=== PATIENT | male | born 1955 | race Caucasian/White ===

== ENCOUNTER 2020-09-25 15:26 | Emergency (ER) | payer MEDICARE, OTHER, SELFPAY ==
[2020-09-25 16:10] VITALS: BP 117/66; PULSE 78; RESP 18; TEMP 37.1; O2SAT 98
--- NOTE | 2020-09-25 17:29 | ED.EYEPROB ---
HPI - Eye Problem General Chief complaint: Eye Problems Stated complaint: eye complaint, vision changes Time Seen by Provider: 09/25/20 17:29 Source: patient Mode of arrival: ambulatory Limitations: no limitations History of Present Illness HPI Narrative: Patient is a 65-year-old male who presents with complaints of blood in right eye. He denies pain, reports occasional floater, denies blurred vision or other complaints. Patient reports awoke like that on Friday, denies injury or trauma to eye. Patient's shows picture of eye on Friday and greatly improved today. Patient has a history of diabetes and reports patient has a history of low platelets and is asking for check of general labs. MD chief complaint: eye redness Related Data Home Medications Medication Instructions Recorded Confirmed albuterol sulfate [ProAir HFA] 1 inh INHALATION QID PRN 07/06/19 07/06/19 calcipotriene 1 applic TOPICAL ONCE 07/06/19 07/06/19 carbidopa-levodopa [Sinemet] 1 tablet PO BID 07/06/19 07/06/19 cetirizine [Zyrtec] 10 mg PO DAILY 07/06/19 07/06/19 duloxetine [Cymbalta] 60 mg PO DAILY 07/06/19 07/06/19 empagliflozin [Jardiance] 25 mg PO DAILY 07/06/19 07/06/19 escitalopram oxalate 10 mg PO DAILY 07/06/19 07/06/19 exenatide microspheres [Bydureon] 2 mg SUBCUT WEEKLY 07/06/19 07/06/19 gabapentin enacarbil [Horizant] 600 mg PO BID 07/06/19 07/06/19 lactobacillus combination no.4 3,000 mmu cells PO DAILY 07/06/19 07/06/19 [Probiotic] metformin 1,000 mg PO BID 07/06/19 07/06/19 rosuvastatin [Crestor] 5 mg PO DAILY 07/06/19 07/06/19 tamsulosin [Flomax] 0.4 mg PO DAILY 07/06/19 07/06/19 tramadol 200 mg PO DAILY 07/06/19 07/06/19 Allergies Allergy/AdvReac Type Severity Reaction Status Date / Time ketorolac Allergy Intermediate Other Verified 09/25/20 16:14 Review of Systems Review of Systems: Narrative: CONSTITUTIONAL: Denies fever, chills, or sweats. EYES: Reports redness to the right eye, and occasional floaters. ENT: Denies rhinorrhea, congestion, sore throat, or otalgia. CARDIOVASCULAR: Denies chest pain, palpitations, or edema. RESPIRATORY: Denies cough or dyspnea. GASTROINTESTINAL: Denies abdominal pain, nausea, vomiting, or diarrhea. GENITOURINARY: Denies dysuria or hematuria. SKIN: Denies rash or itching. MUSCULOSKELETAL: Denies back pain, joint pain, or myalgia. NEUROLOGIC: Denies headache, numbness, dizziness, or weakness. PSYCHIATRIC: Denies anxiety or depression. FORMERLY [facility] Past Medical History Medical History Asthma Back pain Cirrhosis of liver Crohn's disease Diabetes Hypercholesteremia Melena Parkinsons disease Surgical History Surgical History No history of previous surgery Family History Family History (Updated 09/25/20 @ 18:28 by GIOVANNA Rodrigez) Other No significant family history Social History Social History (Updated 07/06/19 @ 14:08 by GIOVANNA Lebron) Social History: Alcohol use weekly service Gender identity (if verbalized by the patient): Male Comments At the time of signature, I have reviewed and agree with nursing past medical, surgical, social, and family history unless otherwise noted. Please see nursing chart for further information. There is no relevant family history pertinent to the presenting complaint. Exam Narrative: Exam Narrative: GENERAL: Well-appearing, well-nourished, and in no acute distress. HEAD: Normocephalic, atraumatic. EYES: Small subconjunctival hematoma to right eye at 6 o'clock position, conjunctiva are normal. ENT: Mucous membranes pink and moist. CHEST: No respiratory distress. HEART: Regular rate and rhythm. EXTREMITIES: Normal range of motion. SKIN: Warm, dry, no rash. NEURO: No focal deficits. Alert and oriented x3. Gait steady. PSYCH: Normal affect. No signs of depression or anxiety. Course Vital Signs Vit
[2020-09-25 18:33] LABS: Basophils Percent Auto 0.3 % (0.2-1.2); Eosinophils Absolute Auto 0.2 K/mm3 (0-0.3); Hematocrit 41.9 % (42.0-52.0); Hemoglobin 14.2 g/dL (14.0-18.0); Immature Platelet Fraction Pct 3.6 % (0.9-11.2); Lymphocytes Absolute Auto 0.75 K/mm3 (0.9-3.2); Lymphocytes Percent Auto 25.1 % (18.3-44.2); Mean Corpuscular HGB Conc 33.9 g/dl (32-36); Mean Corpuscular Hemoglobin 31.7 pg (26-34); Mean Corpuscular Volume 93.5 fl (80-100); Mean Platelet Volume 10.5 fl (7.4-10.4); Monocytes Absolute Auto 0.3 K/mm3 (0.1-0.6); Neutrophils Absolute Auto 1.7 K/mm3 (1.3-6.7); Neutrophils Percent Auto 57.6 % (45.5-73.1); Platelet Count Result 63 k/mm3 (150-375); Red Blood Count 4.48 M/mm3 (4.6-6.20); Red Cell Distribution Width 14.2 % (11.5-14.5)
[2020-09-25 18:43] LABS: Alanine Aminotransferase 14 U/L (4-50); Albumin Level 3.5 g/dL (3.5-5.1); Alkaline Phosphatase 185 U/L (38-126); Anion Gap 2 mmol/L (8-16); Aspartate Amino Transferase 89 U/L (17-59); Bilirubin,Total 1.3 mg/dL (0.2-1.3); Blood Urea Nitrogen 7 mg/dL (9-20); Calcium 8.7 mg/dL (8.4-10.2); Carbon Dioxide 31 mmol/L (22-30); Chloride 107 mmol/L (98-107); Estimated CRCL calculation 150 ml/min; Estimated Glomerular Filt Rate > 60; Glucose 118 mg/dL (75-110); Potassium 4.1 mmol/L (3.4-5.0); Sodium 140 mmol/L (137-145)
[2020-09-25 19:02] VITALS: BP 134/78; PULSE 78; RESP 16; O2SAT 100
== END 2020-09-25 19:03 | disposition home or self-care (01) ==
PROVIDERS: Emergency Provider Nurse Practitioner
DX: H11.31 Conjunctival hemorrhage, right eye (principal); E11.9 Type 2 diabetes mellitus without complications; J45.909 Unspecified asthma, uncomplicated; K74.60 Unspecified cirrhosis of liver; K50.90 Crohn's disease, unspecified, without complications; E78.00 Pure hypercholesterolemia, unspecified; G20 Parkinson's disease; Z79.84 Long term (current) use of oral hypoglycemic drugs
CPT/HCPCS: 36415; 80053; 85025; 85055; 99283; A9270

== ENCOUNTER 2020-11-14 20:20 | Inpatient (IN) | payer MEDICARE, OTHER, SELFPAY ==
--- NOTE | ~2020-11-14 | US_ITS ---
EXAMINATION: US venous doppler LE RT EXAM DATE: 11/17/2020 10:01 INDICATION: Pleuritic chest pain, cough. TECHNIQUE: Multiple grayscale, color flow and Doppler images of the right lower extremity deep venous system were obtained and reviewed. There is no prior study for comparison. FINDINGS: The right common femoral, femoral and profunda veins demonstrate normal color flow, respira tory variation, augmentation and compressibility. Compressibility, color flow confirmed within the r ight popliteal, posterior tibial, peroneal, and greater saphenous veins. IMPRESSION: 1. No right lower extremity deep venous thrombosis. Reviewed, dictated and finalized at location A.
[2020-11-14 20:31] VITALS: BP 171/76; PULSE 110; RESP 18; TEMP 37.4; O2SAT 100
--- NOTE | 2020-11-14 20:33 | ED.LOWEXIN ---
HPI - Extremity Injury (Lower) General Chief Complaint: Extremity Injury, Lower Stated Complaint: right leg pain Time Seen by Provider: 11/14/20 20:33 History of Present Illness HPI Narrative: 65 yo male w/ h/o DM, parkinson's disease presents to the ED with leg pain. He has had pain in the anterior right lower leg since yesterday. initially small area rapidly expanding. Associated with redness, warmth, malaise, chills, and loss of appetite. He has had cellulitis multiple times in the past. Related Data Home Medications Medication Instructions Recorded Confirmed albuterol sulfate [ProAir HFA] 1 inh INHALATION QID PRN 07/06/19 07/06/19 calcipotriene 1 applic TOPICAL ONCE 07/06/19 07/06/19 carbidopa-levodopa [Sinemet] 1 tablet PO BID 07/06/19 07/06/19 cetirizine [Zyrtec] 10 mg PO DAILY 07/06/19 07/06/19 duloxetine [Cymbalta] 60 mg PO DAILY 07/06/19 07/06/19 empagliflozin [Jardiance] 25 mg PO DAILY 07/06/19 07/06/19 escitalopram oxalate 10 mg PO DAILY 07/06/19 07/06/19 exenatide microspheres [Bydureon] 2 mg SUBCUT WEEKLY 07/06/19 07/06/19 gabapentin enacarbil [Horizant] 600 mg PO BID 07/06/19 07/06/19 lactobacillus combination no.4 3,000 mmu cells PO DAILY 07/06/19 07/06/19 [Probiotic] metformin 1,000 mg PO BID 07/06/19 07/06/19 rosuvastatin [Crestor] 5 mg PO DAILY 07/06/19 07/06/19 tamsulosin [Flomax] 0.4 mg PO DAILY 07/06/19 07/06/19 tramadol 200 mg PO DAILY 07/06/19 07/06/19 Allergies Allergy/AdvReac Type Severity Reaction Status Date / Time ketorolac Allergy Intermediate Other Verified 09/25/20 16:14 Review of Systems Review of Systems: All systems reviewed & are unremarkable except as noted in HPI and below Constitutional: Constitutional: Reports chills, Reports fatigue and Denies fever(s) ENT: Denies sore throat Cardiovascular: Cardiovascular: Denies chest pain Respiratory: Respiratory: Denies dyspnea Gastrointestinal: Gastrointestinal: Denies abdominal pain, Denies nausea and Denies vomiting Genitourinary: Genitourinary: Reports no additional male genitourinary complaints Musculoskeletal: Musculoskeletal: Reports back pain Neurologic: Denies dizziness and Reports weakness [facility] Past Medical History Medical History Asthma Back pain Cirrhosis of liver Crohn's disease Diabetes Hypercholesteremia Melena Parkinsons disease Surgical History Surgical History No history of previous surgery Family History Family History Other No significant family history Social History Social History Social History: Alcohol use weekly service Gender identity (if verbalized by the patient): Male Exam Const: General: no acute distress, alert and ill appearing Orientation/consciousness: patient oriented x3 HENMT: Head: normal to inspection Resp: Effort & Inspection: normal respiratory effort Auscultation: clear to auscultation bilaterally Cardio: Rate: regular rate Rhythm: regular rhythm GI: Inspection: non-distended GI Palp: Yes Soft to palpation and No Tenderness to palpation present (GI) Skin: Other: well circumscribed area of warmth erythema and tenderness to the right lower leg Neuro: General: patient oriented x3 and moves all extremities Speech: normal speech Gait exam (Neuro): Normal gait present Course Vital Signs Vital signs: Vital Signs Temperature 37.4 C 11/14/20 20:31 Pulse Rate 110 H 11/14/20 20:31 Respiratory Rate 18 11/14/20 20:31 Blood Pressure 171/76 H 11/14/20 20:31 Pulse Oximetry 100 11/14/20 20:31 Temperature 37.4 C 11/14/20 20:31 Pulse Rate 111 H 11/14/20 22:03 Respiratory Rate 20 11/14/20 22:03 Blood Pressure 147/71 H 11/14/20 22:03 Pulse Oximetry 97 11/14/20 22:03 MDM - Extremity Injury (
[2020-11-14] MEDS: SODIUM CHLORIDE 0.9% IV 1,000 ML 999 ML IV CONT ×2 (21:21→23:12)
[2020-11-14 21:22] LABS: Basophils Percent Auto 0.2 % (0.2-1.2); Eosinophils Percent Auto 0.6 % (0-4.4); Hematocrit 46.8 % (42.0-52.0); Hemoglobin 15.9 g/dL (14.0-18.0); Immature Granulocyte Absolute 0.02 K/mm3 (0.00-0.031); Immature Granulocyte Percent A 0.4 % (0-0.5); Immature Platelet Fraction Pct 3.6 % (0.9-11.2); Lymphocytes Absolute Auto 0.27 K/mm3 (0.9-3.2); Lymphocytes Percent Auto 5.2 % (18.3-44.2); Mean Corpuscular Hemoglobin 31.4 pg (26-34); Mean Corpuscular Volume 92.5 fl (80-100); Mean Platelet Volume 10.9 fl (7.4-10.4); Monocytes Absolute Auto 0.3 K/mm3 (0.1-0.6); Monocytes Percent Auto 5.7 % (2.6-8.5); Neutrophils Absolute Auto 4.6 K/mm3 (1.3-6.7); Neutrophils Percent Auto 87.9 % (45.5-73.1); Platelet Count Result 59 k/mm3 (150-375); Red Blood Count 5.06 M/mm3 (4.6-6.20); Red Cell Distribution Width 14.2 % (11.5-14.5); White Blood Count 5.2 K/mm3 (4.5-10.0)
[2020-11-14] MEDS: MORPHINE SULFATE (*CRX) 2 MG/ML INJ IV PUSH (21:22)
[2020-11-14 21:28] LABS: INR 1.1; Prothrombin Time 15.1 Seconds (11.1-14.7)
[2020-11-14 21:29] LABS: Partial Thromboplastin Time 37.8 SECONDS (22.3-36.8)
[2020-11-14 21:30] VITALS: BP 146/72; PULSE 110; RESP 20; O2SAT 96
[2020-11-14 21:31] LABS: Lactic Acid Reflex 2.9 mmol/L (0.7-2.1)
[2020-11-14 21:34] LABS: Alanine Aminotransferase 16 U/L (4-50); Albumin Level 3.9 g/dL (3.5-5.1); Alkaline Phosphatase 219 U/L (38-126); Anion Gap 7 mmol/L (8-16); Aspartate Amino Transferase 84 U/L (17-59); Bilirubin,Total 2.2 mg/dL (0.2-1.3); Blood Urea Nitrogen 7 mg/dL (9-20); CRP 1.7 mg/dL (<1.0); Calcium 8.8 mg/dL (8.4-10.2); Carbon Dioxide 28 mmol/L (22-30); Chloride 101 mmol/L (98-107); Estimated CRCL calculation 111 ml/min; Estimated Glomerular Filt Rate > 60; Glucose 140 mg/dL (75-110); Potassium 4.1 mmol/L (3.4-5.0); Sodium 136 mmol/L (137-145)
[2020-11-14 22:03] VITALS: BP 147/71; PULSE 111; RESP 20; O2SAT 97
[2020-11-14 22:18] LABS: Add Urine Microscopic? YES; Appearance Urine Cloudy (Clear); Bacteria Urine Trace /hpf; Bilirubin Urine Negative (Negative); Blood Urine Negative (Negative); Color Urine Yellow (Yellow); Glucose Urine UA 3+ mg/dL (Negative); Ketones Urine Trace mg/dL (Negative); Leukocyte Esterase Ur Negative LEU/UL (Negative); Nitrate Urine Negative (Negative); Protein Urine Negative (Negative); RBC Urine 0-2 /hpf (0-2); WBC Urine 0-3 /hpf
[2020-11-14 22:21] LABS: Specific Grav Ur 1.032 (1.001-1.035)
--- NOTE | 2020-11-14 22:46 | PC.NURSE ---
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 ERP Dr. Strickland made aware and will change the order at this time.
[2020-11-14 23:12] VITALS: BP 145/68; PULSE 110; RESP 20; O2SAT 96
[2020-11-14 23:40] VITALS: BP 151/65; PULSE 92; RESP 20; TEMP 37.7; O2SAT 98; BMI 31.1
[2020-11-15 00:17] LABS: Reflex Lactic Acid Yes or No Add Lactic
--- NOTE | 2020-11-15 00:25 | ADMGEN ---
This patient, Erwin Monroe, was admitted to 3 [facility] Surg Room 326-01. Patient/family oriented to hospital policies and general routines including ID bracelet, bed and alarms, visiting hours, pain management, procedures, bathroom and other care routines, personal items, smoking policy, room service/diet, and visiting hours. Information on how to activate the Rapid Response Team has been discussed. Patient/Family are encouraged to report perceived risks to care and to ask questions if they do not understand what they are told or what they should do.
[2020-11-15 01:02] LABS: Lactic Acid 2.3 mmol/L (0.7-2.1)
[2020-11-15] MEDS: LACTATED RINGERS 1,000 ML 75 ML IV CONT ×2 (02:56→20:44)
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
[2020-11-15 06:00] VITALS: BP 121/50; PULSE 103; RESP 20; TEMP 37.5; O2SAT 93
[2020-11-15 06:24] LABS: Lactic Acid Reflex 2.4 mmol/L (0.7-2.1)
[2020-11-15 06:25] LABS: Anion Gap 4 mmol/L (8-16); Blood Urea Nitrogen 7 mg/dL (9-20); Calcium 7.8 mg/dL (8.4-10.2); Carbon Dioxide 25 mmol/L (22-30); Chloride 104 mmol/L (98-107); Estimated CRCL calculation 149 ml/min; Estimated Glomerular Filt Rate > 60; Glucose 116 mg/dL (75-110); Potassium 3.8 mmol/L (3.4-5.0); Sodium 133 mmol/L (137-145)
[2020-11-15 06:26] LABS: Hematocrit 39.1 % (42.0-52.0); Hemoglobin 13.5 g/dL (14.0-18.0); Mean Corpuscular HGB Conc 34.5 g/dl (32-36); Mean Corpuscular Hemoglobin 31.8 pg (26-34); Mean Corpuscular Volume 92.2 fl (80-100); Mean Platelet Volume 10.7 fl (7.4-10.4); Platelet Count Result 47 k/mm3 (150-375); Red Blood Count 4.24 M/mm3 (4.6-6.20); Red Cell Distribution Width 13.9 % (11.5-14.5); White Blood Count 3.1 K/mm3 (4.5-10.0)
[2020-11-15 07:56] LABS: Glucose Point of Care 172 (65-105)
[2020-11-15] MEDS: DULoxetine HCL 60 MG CAPSULE.DR PO (09:49)
[2020-11-15] MEDS: guaiFENesin 12 HR 600 MG TABCR PO ×2 (09:49→20:37)
[2020-11-15] MEDS: metFORMIN HCL 500 MG TABLET 1000 MG PO ×2 (09:49→21:16)
[2020-11-15] MEDS: ESCITALOPRAM OXALATE 10 MG TABLET PO (09:49)
[2020-11-15] MEDS: ROSUVASTATIN 5 MG TABLET PO (09:49)
[2020-11-15] MEDS: CARBIDOPA/LEVODOPA 25/100 MG TABLET 1 TABLET PO ×2 (09:49→16:10)
[2020-11-15] MEDS: LORATADINE 10 MG TABLET PO (09:49)
[2020-11-15] MEDS: TAMSULOSIN HCL 0.4 MG CAPSULE PO (09:49)
--- NOTE | 2020-11-15 11:33 | PHAR ---
HOME MEDS VERIFIED = [facility] [id number] PROBIOTIC FORMULA 1B-250MG ONCE A DAY WITH MEALS. BOTTLE CONTAINS CLEAR CAPSULES FILLED WITH WHITE POWDER. NO MARKINGS ON CAPSULE SO CAN NOT POSITIVELY IDENTIFY PRODUCT. I HAVE NO REASON TO THINK PRODUCT IS ANYTHING OTHER THAN LABELED. [id number] JARDIANCE 25MG 1 TAB DAILY [id number] HORIZANT 600 MG 1 TAB BID WITH FOOD. [facility] RX [id number] DUREZOL 0.05% OPHTH EMULSION 1 DROP IN EACH EYE TWICE A DAY X1 WEEK THEN 1 DROP IN EACH EYE DAILY.
[2020-11-15 11:41] VITALS: O2SAT 94
[2020-11-15 11:46] LABS: Glucose Point of Care 172 (65-105)
[2020-11-15 14:00] VITALS: BP 144/56; PULSE 98; RESP 18; TEMP 37.5; O2SAT 97
--- NOTE | 2020-11-15 16:08 | PM.IMPN ---
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 Qualified Code(s): E11.628 - Type 2 diabetes mellitus with other skin complications Code(s): E11.9 - Type 2 diabetes mellitus without complications Status: Acute Additional Plan Continue IV antibiotics BG at goal cont home med VTEP Subjective Date/time seen: 11/15/20 16:08 Follow-up rounding note patient seen earlier this morning no billing for this encounter Patient doing well cellulitis appears stable will continue current care Exam Narrative: Exam Narrative: PHYSICAL EXAM: General: No acute distress, well-developed well-nourished HEENT: Mucous membranes are moist, no oral pharyngeal erythema, good dentition, pupils are equal, head is normocephalic atraumatic Respiratory: Clear to auscultation bilaterally, no increased work of breathing Cardiovascular: Sinus tachycardia, 2+ bilateral radial pedal pulses, no murmur Gastrointestinal: Soft, nontender, nondistended, positive bowel sounds Skin: Slightly diaphoretic, non jaundice, no pallor, chronic hyperpigmentation to anterior shins bilaterally, overlying erythema of the right anterior mancera extending from just below the knee to 2 or 3 in above the ankle Musculoskeletal: Edema of the right lower extremity trace to 1+ Neurological: Alert and oriented, speech is clear but slow, no facial asymmetry, moves all extremities equally no gross motor deficits noted on limited exam Psychiatric: Appropriate mood, slightly flat affect, relatively pleasant and cooperative Objective Data Vital Signs Vital Signs: Vital Signs - 24 hr 11/14/20 20:31 11/14/20 21:30 11/14/20 22:03 Temperature 99.3 F Pulse Rate 110 H 110 H 111 H Respiratory Rate 18 20 20 Blood Pressure 171/76 H 146/72 H 147/71 H Pulse Oximetry 100 96 97 11/14/20 23:12 11/14/20 23:40 11/15/20 06:00 Temperature 99.8 F H 99.5 F Pulse Rate 110 H 92 103 H Respiratory Rate 20 20 20 Blood Pressure 145/68 H 151/65 H 121/50 L Pulse Oximetry 96 98 93 04/07/21 11:41 11/15/20 14:00 Temperature 99.5 F Pulse Rate 98 Respiratory Rate 18 Blood Pressure 144/56 H Pulse Oximetry 94 97 Intake/Output Intake/Output: Intake & Output 11/12/20 11/13/20 11/14/20 11/15/20 23:59 23:59 23:59 23:59 Intake Total 1350 2030 Output Total 400 Balance 1350 1630 Meds/Results Medications: Active Medications Generic Name Dose Route Start Last Admin Trade Name Freq PRN Reason Stop Dose Admin Albuterol 2 puff 11/15/20 05:22 Albuterol Sulfate (*Sp) Aerosol 1 Puff INHALATION QID PRN Wheezing Carbidopa/Levodopa 1 tablet 11/15/20 18:00 Carbidopa/Levodopa 25/100 Mg Tablet PO Q6HR JUANA Dextrose 12.5 gm 11/15/20 05:23 Dextrose 50% 25 Gm/50 Ml Syringe IV PUSH PRN PRN Hypoglycemia Protocol Duloxetine HCl 60 mg 11/15/20 09:00 11/15/20 09:49 Duloxetine Hcl 60 Mg Capsule.Dr PO 60 mg DAILY JUANA Administration Escitalopram Oxalate 10 mg 11/15/20 09:00 11/15/20 09:49 Escitalopram Oxalate 10 Mg Tablet PO 10 mg DAILY JUANA Administration Glucagon 1 mg 11/15/20 05:23 Glucagon For Inj 1 Mg Vial IM PRN PRN Hypoglycemia Protocol Glucose 15 gm 11/15/20 05:23 Glucose Oral Gel 15 Gm Of Glucse In 37.5 Gm Tube PO PRN PRN Hypoglycemia Protocol Guaifenesin 600 mg 11/15/20 09:00 11/15/20 09:49 Guaifenesin 12 Hr 600 Mg Tabcr PO 600 mg Q12HR JUANA Administration Imipenem/Cilastatin Sodium 500 mg in 100 mls @ 300 mls/hr 11/15/20 03:00 11/15/20 09:49 Primaxin 500 Mg/D5w 100 Ml IVPB 300 mls/hr Q6H JUANA
[2020-11-15 17:05] LABS: Glucose Point of Care 128 (65-105)
[2020-11-15 19:29] LABS: Ammonia 15 umol/L (9-30)
[2020-11-15 20:00] VITALS: PULSE 98; RESP 18; O2SAT 97
[2020-11-15] MEDS: PHARMACIST COMMUNICATION ORDER 1 EACH XX (20:46)
[2020-11-15 21:16] LABS: Glucose Point of Care 142 (65-105)
[2020-11-15] MEDS: ACETAMINOPHEN 325 MG TABLET 650 MG PO (21:57)
[2020-11-15 22:00] VITALS: BP 124/58; PULSE 88; RESP 20; TEMP 36.8; O2SAT 97
[2020-11-16] MEDS: CARBIDOPA/LEVODOPA 25/100 MG TABLET 1 TABLET PO ×5 (00:53→21:53)
[2020-11-16 06:00] VITALS: BP 120/54; PULSE 83; RESP 20; TEMP 36.6; O2SAT 96
[2020-11-16 06:38] LABS: Estimated CRCL calculation 149 ml/min; Estimated Glomerular Filt Rate > 60
[2020-11-16 07:57] LABS: Glucose Point of Care 115 (65-105)
[2020-11-16] MEDS: TAMSULOSIN HCL 0.4 MG CAPSULE PO (09:02)
[2020-11-16] MEDS: ESCITALOPRAM OXALATE 10 MG TABLET PO (09:02)
[2020-11-16] MEDS: metFORMIN HCL 500 MG TABLET 1000 MG PO ×2 (09:02→17:30)
[2020-11-16] MEDS: ROSUVASTATIN 5 MG TABLET PO (09:02)
[2020-11-16] MEDS: LORATADINE 10 MG TABLET PO (09:03)
[2020-11-16] MEDS: guaiFENesin 12 HR 600 MG TABCR PO ×2 (09:03→21:54)
[2020-11-16] MEDS: DULoxetine HCL 60 MG CAPSULE.DR PO (09:03)
[2020-11-16 14:00] VITALS: BP 121/69; PULSE 102; RESP 20; TEMP 36.1; O2SAT 99
[2020-11-16 16:49] LABS: Glucose Point of Care 121 (65-105)
[2020-11-16 16:49] LABS: Glucose Point of Care 107 (65-105)
--- NOTE | 2020-11-16 18:17 | PM.IMPN ---
Progress Note: A&P Assessment and Plan (1) Cellulitis of right lower leg: Code(s): L03.115 - Cellulitis of right lower limb Status: Acute Assessment and Plan: Stable and improving A.m. 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 Consult PT OT Encourage mobilization Subjective Date/time seen: 11/16/20 12:17 Patient seen this afternoon with his at bedside. Cellulitis continues to remain stable and patient is reporting less discomfort. Medical chart reviewed and patient expected to be discharged home tomorrow if clinical course remains improving and benign Exam Narrative: Exam Narrative: GEN: NAD, AAOx3, cooperative HEENT: NCAT, MMM, EOMI Neck: no JVD Heart: S1S2 RRR Lungs: CTA B/l Abd: soft, NT, ND, bowel sounds normoactive Ext: moves all, no cyanosis, no clubbing, right lower anterior mancera erythematous edematous and tender to palpation Neuro: Cranial nerves intact, moving all extremities equally Psych: Mood and affect congruent Objective Data Vital Signs Vital Signs: Vital Signs - 24 hr 11/15/20 20:00 11/15/20 22:00 11/16/20 06:00 Temperature 98.3 F 97.9 F Pulse Rate 98 88 83 Respiratory Rate 18 20 20 Blood Pressure 124/58 L 120/54 L Pulse Oximetry 97 97 96 11/16/20 14:00 Temperature 97.0 F L Pulse Rate 102 H Respiratory Rate 20 Blood Pressure 121/69 Pulse Oximetry 99 Intake/Output Intake/Output: Intake & Output 11/13/20 11/14/20 11/15/20 11/16/20 23:59 23:59 23:59 23:59 Intake Total 1350 6070 3100 Output Total 1750 2700 Balance 1350 4320 400 Meds/Results Medications: Active Medications Generic Name Dose Route Start Last Admin Trade Name Freq PRN Reason Stop Dose Admin Acetaminophen 650 mg 11/15/20 21:40 11/15/20 21:57 Acetaminophen 325 Mg Tablet PO 650 mg Q4H PRN Administration Headache Albuterol 2 puff 11/15/20 05:22 Albuterol Sulfate (*Sp) Aerosol 1 Puff INHALATION QID PRN Wheezing Carbidopa/Levodopa 1 tablet 11/16/20 12:00 11/16/20 17:29 Carbidopa/Levodopa 25/100 Mg Tablet PO 1 tablet 0800,1200,1600,2000 JUANA Administration Dextrose 12.5 gm 11/15/20 05:23 Dextrose 50% 25 Gm/50 Ml Syringe IV PUSH PRN PRN Hypoglycemia Protocol Duloxetine HCl 60 mg 11/15/20 09:00 11/16/20 09:03 Duloxetine Hcl 60 Mg Capsule. PO 60 mg DAILY JUANA Administration Escitalopram Oxalate 10 mg 11/15/20 09:00 11/16/20 09:02 Escitalopram Oxalate 10 Mg Tablet PO 10 mg DAILY JUANA Administration Glucagon 1 mg 11/15/20 05:23 Glucagon For Inj 1 Mg Vial IM PRN PRN Hypoglycemia Protocol Glucose 15 gm 11/15/20 05:23 Glucose Oral Gel 15 Gm Of Glucse In 37.5 Gm Tube PO PRN PRN Hypoglycemia Protocol Guaifenesin 600 mg 11/15/20 09:00 11/16/20 09:03 Guaifenesin 12 Hr 600 Mg Tabcr PO 600 mg Q12HR JUANA Administration Imipenem/Cilastatin Sodium 500 mg in 100 mls @ 300 mls/hr 11/15/20 03:00 11/16/20 15:27 Primaxin 500 Mg/D5w 100 Ml IVPB Infused Q6H JUANA Infusion Vancomycin HCl 1,750 mg in 500 mls @ 250 mls/hr 11/15/20 06:00 11/16/20 08:09 Vancomycin 1,750 Mg/D5w 500 Ml IVPB Infused Q12H JUANA Infusion Dextrose 1,000 mls @ 100 m
[2020-11-16 19:29] LABS: Vancomycin Trough 7.7 ug/mL (10.0-20.0)
[2020-11-16 22:00] VITALS: BP 133/62; PULSE 86; RESP 18; TEMP 37.5; O2SAT 96
[2020-11-17 06:00] VITALS: BP 145/70; PULSE 85; RESP 18; TEMP 36.5; O2SAT 98
[2020-11-17 06:04] LABS: Basophils Percent Auto 0.3 % (0.2-1.2); Eosinophils Absolute Auto 0.1 K/mm3 (0-0.3); Eosinophils Percent Auto 4.1 % (0-4.4); Hematocrit 38.9 % (42.0-52.0); Hemoglobin 13.6 g/dL (14.0-18.0); Immature Platelet Fraction Pct 3.8 % (0.9-11.2); Lymphocytes Absolute Auto 0.81 K/mm3 (0.9-3.2); Lymphocytes Percent Auto 27.7 % (18.3-44.2); Mean Corpuscular Hemoglobin 31.6 pg (26-34); Mean Corpuscular Volume 90.5 fl (80-100); Mean Platelet Volume 10.9 fl (7.4-10.4); Monocytes Absolute Auto 0.5 K/mm3 (0.1-0.6); Monocytes Percent Auto 16.4 % (2.6-8.5); Neutrophils Absolute Auto 1.5 K/mm3 (1.3-6.7); Neutrophils Percent Auto 51.5 % (45.5-73.1); Platelet Count Result 59 k/mm3 (150-375); Red Cell Distribution Width 13.8 % (11.5-14.5); White Blood Count 2.9 K/mm3 (4.5-10.0)
[2020-11-17 06:18] LABS: D Dimer 0.96 ug/mL (<0.48)
[2020-11-17 06:25] LABS: Alanine Aminotransferase 14 U/L (4-50); Alkaline Phosphatase 110 U/L (38-126); Anion Gap 3 mmol/L (8-16); Aspartate Amino Transferase 46 U/L (17-59); Bilirubin,Total 1.6 mg/dL (0.2-1.3); Blood Urea Nitrogen 7 mg/dL (9-20); CRP 7.6 mg/dL (<1.0); Calcium 8.2 mg/dL (8.4-10.2); Carbon Dioxide 28 mmol/L (22-30); Chloride 104 mmol/L (98-107); Estimated CRCL calculation 149 ml/min; Estimated Glomerular Filt Rate > 60; Glucose 114 mg/dL (75-110); Magnesium 1.7 mg/dL (1.6-2.3); Potassium 3.4 mmol/L (3.4-5.0); Sodium 135 mmol/L (137-145)
[2020-11-17 07:53] LABS: Glucose Point of Care 95 (65-105)
[2020-11-17] MEDS: DULoxetine HCL 60 MG CAPSULE.DR PO (08:47)
[2020-11-17] MEDS: guaiFENesin 12 HR 600 MG TABCR PO (08:47)
[2020-11-17] MEDS: ESCITALOPRAM OXALATE 10 MG TABLET PO (08:47)
[2020-11-17] MEDS: CARBIDOPA/LEVODOPA 25/100 MG TABLET 1 TABLET PO ×2 (08:47→11:45)
[2020-11-17] MEDS: ROSUVASTATIN 5 MG TABLET PO (08:49)
[2020-11-17] MEDS: LORATADINE 10 MG TABLET PO (08:49)
[2020-11-17] MEDS: metFORMIN HCL 500 MG TABLET 1000 MG PO (08:49)
[2020-11-17] MEDS: TAMSULOSIN HCL 0.4 MG CAPSULE PO (08:49)
[2020-11-17 09:51] LABS: Lactic Acid Reflex 1.6 mmol/L (0.7-2.1)
[2020-11-17] MEDS: SODIUM CHLORIDE 0.9% IV 1,000 ML 100 ML IV CONT (10:41)
[2020-11-17 12:16] LABS: Glucose Point of Care 110 (65-105)
--- NOTE | 2020-11-17 13:21 | PM.DS ---
DS: Admitting Diagnosis Admitting Diagnosis Admitting Diagnosis: Cellulitis of right lower leg: Sepsis Type 2 diabetes mellitus: Parkinson's DS: Discharge Diagnosis Discharge Diagnosis (1) Type 2 diabetes mellitus: Qualifiers: Diabetes mellitus care home insulin use: without care home use Diabetes mellitus complication status: with skin complications Diabetes mellitus complication detail: with other skin complication Qualified Code(s): E11.628 - Type 2 diabetes mellitus with other skin complications Code(s): E11.9 - Type 2 diabetes mellitus without complications Status: Acute (2) Cellulitis of right lower leg: Code(s): L03.115 - Cellulitis of right lower limb Status: Acute (3) Sepsis: Code(s): A41.9 - Sepsis, unspecified organism Status: Acute (4) Parkinsons disease: Code(s): G20 - Parkinson's disease Status: Acute DS: Summary Hospital Course Reason for hospitalization: cellulitis sepsis Hospital Course: 65 yo M admitted with rapidly progressing cellulitis. Pt reported symptoms including fever, increasing erythema and leg pain, and met sepsis criteria on admission with, relative leukocytosis (baseline leukopenic), tachycardia, tachypnea, and lactic acidosis. He was placed on broad-spectrum antibiotic coverage per antibiotic stewardship guidelines. Patient received 2 L isotonic fluids in the ER with improvement in his lactic acid level. Blood cultures remained negative. He continued on IVFs and IV abx after admission with morphine PRN for pain. Pt had a benign clinical course, BG remained well controlled, and was transitioned to cipro/doxy for ongoing treatment of cellulitis in the diabetic patient w indications to follow up w his PCP within 3 days for ongoing care in the outpt setting. Time Spent with Patient Time attestation: Total time spent providing and/or coordinating discharge services: Exam Narrative: Exam Narrative: GEN: NAD, AAOx2, cooperative HEENT: NCAT, MMM, EOMI Neck: no JVD Heart: S1S2 RRR Lungs: CTA B/l Ext: moves all, no cyanosis, no clubbing, no edema, RLE erythema resolving DS: Data Data Completed and Pending Labs on day of discharge: Labs from last 24 hours 11/17/20 11/17/20 11/17/20 12:08 09:25 07:48 WBC RBC Hgb Hct MCV MCH MCHC RDW Plt Count MPV Immature Gran % (Auto) Neut % (Auto) Lymph % (Auto) [place] % (Auto) Eos % (Auto) Baso % (Auto) Lymph # (Auto) [place] # (Auto) Eos # (Auto) Baso # (Auto) Abs Immat Gran (auto) Absolute Neuts (auto) Absolute Nucleated RBC Nucleated RBC % % Immature Plt Fraction D-Dimer Sodium Potassium Chloride Carbon Dioxide Anion Gap BUN Creatinine Estim Creat Clear Calc Estimated GFR Glucose POC Capillary Glucose 110 95 Lactic Acid 1.6 Calcium Magnesium Total Bilirubin AST ALT Alkaline Phosphatase C-Reactive Protein Total Protein Albumin Vancomycin Trough 11/17/20 11/17/20 11/17/20 05:35 05:35 05:35 WBC 2.9 L RBC 4.30 L Hgb 13.6 L Hct 38.9 L MCV 90.5 MCH 31.6 MCHC 35.0 RDW 13.8 Plt Count 59 L MPV 10.9 H Immature Gran % (Auto) 0.0 Neut % (Auto) 51.5 Lymph % (Auto) 27.7 [place] % (Auto) 16.4 H Eos % (Auto) 4.1 Baso % (Auto) 0.3 Lymph # (Auto) 0.81 L [place] # (Auto) 0.5 Eos # (Auto) 0.1 Baso # (Auto) 0.0 Abs Immat Gran (auto) 0.00 Absolute Neuts (auto) 1.5 Absolute Nucleated RBC 0.0 Nucleated RBC % 0.0 % Immature Plt Fraction 3.8 D-Dimer 0.96 H Sodium 135 L Potassium 3.4 Chloride 104 Carbon Dioxide 28 Anion Gap 3 L BUN 7 L Creatinine 0.50 L Estim Creat Clear Calc 149 Estimated GFR > 60 Glucose 114 H POC Capillary Glucose Lactic Acid Calcium 8.2 L Magnesium 1.7 Total Bilirubin 1.6 H
--- NOTE | 2020-11-17 18:26 | PC.NURSE ---
Patients Candie called with a question reguarding discharge medication. was questioning the change in patients cymbalta dose. Discharge stated patient was to only take 30mg until 4-16-21 and then resume the 60mg for a total of 90mg. SPoke with MD Monte rtskipuarding this concern. She stated that patient discharged on cipro which can interfere with the cymbalta making it stronger therefore the cymbalta dose was cut down until patient is finished with cipro. Returned call to with this information and she stated she understood the rationale.
== END 2020-11-17 14:45 | disposition home or self-care (01) | DRG 872 ==
LOC: ANHED 22:32 → ANH3MEDSUR 11-15 11:57
PROVIDERS: Admitting Provider Internal Medicine; Emergency Provider Emergency Medicine; PCP Internal Medicine; Visit Provider Hospitalist
DX: A41.9 Sepsis, unspecified organism (principal); L03.115 Cellulitis of right lower limb; K50.90 Crohn's disease, unspecified, without complications; E11.628 Type 2 diabetes mellitus with other skin complications; E11.42 Type 2 diabetes mellitus with diabetic polyneuropathy; G20 Parkinson's disease; K74.60 Unspecified cirrhosis of liver; J45.909 Unspecified asthma, uncomplicated; E78.00 Pure hypercholesterolemia, unspecified; N40.0 Benign prostatic hyperplasia without lower urinary tract symptoms; E11.319 Type 2 diabetes mellitus with unspecified diabetic retinopathy without macular edema; D69.59 Other secondary thrombocytopenia; Z90.49 Acquired absence of other specified parts of digestive tract; Z87.891 Personal history of nicotine dependence
CPT/HCPCS: 36415; 80048; 80053; 80202; 81001; 82140; 82565; 82948; 83605; 83735; 85025; 85027; 85055; 85380; 85610; 85730; 86140; 87040; 93971; 96365; 96375; 97161; 97165; 99285; A9270; J0743; J2270; J3370; J7030; J7120

== ENCOUNTER 2024-06-22 21:17 | Emergency (ER) | payer MEDICARE, OTHER, SELFPAY ==
[2024-06-22 21:21] VITALS: BP 156/59; PULSE 94; RESP 15; TEMP 36.3; O2SAT 95
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
[2024-06-23] MEDS: SILVER NITRATE (*SP) STICK 1 EACH (01:50)
[2024-06-23 01:56] VITALS: BP 152/62; PULSE 92; RESP 14; O2SAT 99
[2024-06-23 01:57] VITALS: BP 152/62; PULSE 92; RESP 14; TEMP 36.8; O2SAT 99
== END 2024-06-23 01:59 | disposition home or self-care (01) ==
PROVIDERS: Emergency Provider Physician Assistant
DX: S51.811A Laceration without foreign body of right forearm, initial encounter (principal); J45.909 Unspecified asthma, uncomplicated; N40.0 Benign prostatic hyperplasia without lower urinary tract symptoms; K74.60 Unspecified cirrhosis of liver; F32.A Depression, unspecified; K50.90 Crohn's disease, unspecified, without complications; E78.5 Hyperlipidemia, unspecified; G62.9 Polyneuropathy, unspecified; E11.9 Type 2 diabetes mellitus without complications; Z79.84 Long term (current) use of oral hypoglycemic drugs
CPT/HCPCS: 12001; 99283

== ENCOUNTER 2025-01-27 00:59 | Emergency (ER) | payer MEDICARE, OTHER, SELFPAY ==
[2025-01-27] VITALS (12 sets, daily range): BP systolic 144–168; BP diastolic 60–71; PULSE 91–114; RESP 18–26; TEMP 36.4–36.8; O2SAT 91–98
--- NOTE | ~2025-01-27 | XR_ITS ---
Clinical Indication: Chest pain PA and lateral views of the chest: Comparison: 07/06/2019 Findings: The lungs are clear, without evidence of focal consolidation or pleural effusion. Cardiome diastinal silhouette is within normal limits. Bones and soft tissues are unremarkable. Impression: Normal chest. Reviewed, dictated and finalized at location . Impression: Normal chest.
--- NOTE | ~2025-01-27 | CT_ITS ---
CT of the Abdomen and Pelvis: Indication: Pancreatitis Technique: 2.5 mm axial scans were obtained through the abdomen and pelvis following intravenous adm inistration of 100 cc of Omnipaque 350. Dose reduction technique was used on this scan by utilizing a utomated exposure control and iterative reconstruction technique. The dose-length product (DLP) was 1 301.34 mGy-cm. Findings: Scans through the lung bases are unremarkable. Diffuse nodular contour of liver is compatible cirrhosis. No hepatic mass or biliary dilatation evide nt. Gallbladder absent. Splenorenal varices are noted. Spleen mildly enlarged 14.3 cm in length. 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 The pancreas, adrenals and kidneys are otherwise within normal limits. No evidence of aortic aneurysm. No lymphadenopathy. No bowel obstruction or bowel wall thickening. There is no evidence to suggest acute appendicitis. Images through the pelvis were performed. Urinary bladder unremarkable. Prostate gland is enlarged wi th irregular indentation into the bladder base. No ascites. Impression: Cirrhotic liver with associated mild splenomegaly and splenorenal varices. No CT evidence for acute pancreatitis. Enlarged prostate gland. Reviewed, dictated and finalized at location . Impression: Cirrhotic liver with associated mild splenomegaly and splenorenal varices. No CT evidence for acute pancreatitis. Enlarged prostate gland.
--- OUTSIDE RECORDS SUMMARY | 2025-01-27 01:02 | XMS_ITS | Encounter Summary ---
Author Organization [facility] Address [address] [place] [address] Care Team Providers Care Director Of Counseling Name Role Phone John Samuels MD Primary Care Provider [phone] Arina Dobbins RN Unavailable [phone] Rianna Ambriz DO Primary Care Provider Un available John Samuels MD Primary Care Provider [phone] Rianna Ambriz DO Primary Care Provider Un available Koko Sol DO Primary Care Provider [phone] Encounter Details Date Type Department Care Team (Late st Contact Info) Description 07/01/2019 [facility] Visit [facility]TERNAL [facility] DEPT Unknown, Provider Social History Tobacco Use Types Packs/Day Years Used Date Smoking Tobacco: Former Cigarettes Smokeless Tobacco: Never Comments:3cigarettes/yr, qu it smoking over 35 years ago Alcohol Use Standard Drinks/Week Comments No 1.7 (1 standard drink = 0.6 oz p ure alcohol) Sex and Gender Information Value Date Recorded Sex Assigned at Male 03/05/2024 9:26 AM CDT Legal 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 Answer Date of Assessment Author No 11/16/2015 2:15 PM CDT Becky Marino RN * Is person blind or have serious difficulty seeing? Answer Date of Assessment Author No 11/16/2015 2:15 PM CDT Becky Marino RN * Does person have serious difficulty walking/climbing stairs? Answer Date of Assessment Author No 11/16/2015 2:15 PM CDT Becky Marino RN * Does person have difficulty dressing/bathing? Answer Date of Assessment Author No 11/16/2015 2:15 PM CDT Becky Marino RN * Does person have difficulty doing errands alone? Answer Date of Assessment Author No 11/16/2015 2:15 PM CDT Becky Marino RN documented as of this encounter Mental Status * Does person have difficulty concentrating/remembering/making decisions? Answer Entry Date Author No 11/16/2015 2:15 PM CDT Becky Marino RN documented in this encounter Plan of Treatment Upcoming Encounters Date Type Department Care Team (Late st Contact Info) Description 02/17/2025 11:00 AM CDT [facility] [address] [facility] [address] [place] [phone] [place] [id number] [id number] documented as of this encounter Visit Diagnoses Not on filedocumented in this encounter Care Teams Director Of Counseling Relationship Specialty Start Date End Date John Samuels MD [facility] [address] [place] [phone] PCP - General Internal Medicine 05/11/15 06/29/20 Rianna Ambriz DO PCP - General Student Resident 06/30/20 06/30/20 John Samuels MD [facility] [address] [place] [phone] PCP - General 07/01/20 02/21/21 Rianna Ambriz DO PCP - General Student Resident 02/22/21 03/13/21 Koko Sol DO [address] [place] [address] PCP - General Internal Medicine 02/11/24 Arina Dobbins, RN Planer Tailer 05/11/15 documented as of this encounter
--- OUTSIDE RECORDS SUMMARY | 2025-01-27 01:02 | XMS_ITS | Encounter Summary ---
Author Organization [facility] Address [address] [facility] [place] [address] Care Team Providers Care Amf Mechanic Name Role Phone John Samuels MD Primary Care Provider [phone] Arina Dobbins RN Unavailable [phone] Rianna Ambriz DO Primary Care Provider Un available John Samuels MD Primary Care Provider [phone] Rianna Ambriz DO Primary Care Provider Un available Koko Sol DO Primary Care Provider [phone] Encounter Details Date Type Department Care Team (Late st Contact Info) Description 09/17/2019 [facility] Unknown, Provider [...] AM CDT 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 Gender Identity Not on file Sexual Orientation Not on file 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 Job End Date 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 Not on file Not 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 Not on file Not [...] Description 02/17/2025 11:00 AM CDT Office Visit [facility] [address] [facility] [address] [place] [phone] [place] [address] [phone] documented as of this encounter Visit Diagnoses Not on filedocumented in this encounter Care Teams Amf Mechanic Relationship Specialty Start Date End Date John Samuels MD [facility] [address] [place] [phone] PCP - General Internal Medicine 05/11/15 06/29/20 Rianna Ambriz DO PCP - General Student Resident 06/30/20 06/30/20 John Samuels MD [facility] [address] [place] [phone] PCP - General 07/01/20 02/21/21 Rianna Ambriz DO PCP - General Student Resident 02/22/21 03/13/21 Koko Sol DO [address] [place] [address] PCP - General Internal Medicine 02/11/24 Arina Dobbins, RN Asset Recovery Specialist 05/11/15 documented as of this encounter
--- OUTSIDE RECORDS SUMMARY | 2025-01-27 01:02 | XMS_ITS | Encounter Summary ---
Author Organization [facility] Address [address] [facility] [place] [address] Phone Care Team Providers Care Operations Assistant Name Role Phone Markell Sanderson [facility] Primary Care Provider [phone] Koko Sol DO Primary Care Provider [phone] Migdalia Pfeiffer MD Primary Care Provider [phone] Encounter Details Date Type Department Care Team (Latest Contact Info) Description 09/25/2020 Orders Only [facility] Scanning, Provider Social History Tobacco Use Types Packs/Day Years Used Date Smoking Tobacco: Former Smokeless Tobacco: Never Alcohol Use Standard Drinks/Week Comments Yes 1 (1 standard drink = 0.6 oz pur e alcohol) Sex and Gender Information Value Date Recorded Sex Assigned at Not on file 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 Gender Identity Not on file Sexual Orientation Not on file documented as of this encounter Plan of Treatment Not on file documented as of this encounter Procedures Procedure Name Priority Date/Time Associated Diagnosis Comments SCAN - LABS 09/25/2020 documented in this encounter Results * SCAN - LABS (09/25/2020) us Provider Scanning Final Result documented in this encounter Visit Diagnoses Not on filedocumented in this encounter Additional Health Concerns Infection Onset Date Last Indicated Resolved Time COVID: Suspected 11/03/2021 11/03/2021 11/03/2021 5:02 PM CDT documented as of this encounter Care Teams Operations Assistant Relationship Specialty Start Date End Date [facility] [address] [place] [address] PCP - General 04/20/19 05/12/23 Koko Sol DO [address] [place] [address] PCP - General Internal Medicine 05/13/23 11/30/24 Migdalia Pfeiffer MD [address] [place] [address] [place] [address] PCP - General Internal Medicine 12/01/24 documented as of this encounter
--- OUTSIDE RECORDS SUMMARY | 2025-01-27 01:02 | XMS_ITS | Encounter Summary ---
Author Organization [facility] Address [address] [facility] [place] [address] Care Team Providers Care Oil Heaterman Name Role Phone Arina Dobbins RN Unavailable [phone] Koko Sol DO Primary Care Provider [phone] Encounter Details Date Type Department Care Team (Late st Contact Info) Description 01/08/2025 Results Follow-Up [facility] [address] [facility] [address] [place] [phone] [place] [address] [address] Social History Tobacco Use Types Packs/Day Years Used Date Smoking Tobacco: Former Cigarettes Smokeless Tobacco: Never Comments:3cigarettes/yr, qu it smoking over 35 years ago Alcohol Use Standard Drinks/Week Comments No 1.7 (1 standard drink = 0.6 oz p ure alcohol) PHQ-2 Answer Date Recorded Patient Health Questionnaire-2 Score 2 04/19/2024 Sex and Gender Information Value Date Recorded Sex Assigned at Male 03/05/2024 9:26 AM CDT Legal 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 Answer Date of Assessment Author No 02/24/2024 4:00 PM CDT Jordana Bender RN * Is person blind or have serious difficulty seeing? Answer Date of Assessment Author No 02/24/2024 4:00 PM CDT Jordana Bender RN * Does person have serious difficulty walking/climbing stairs? Answer Date of Assessment Author No 02/24/2024 4:00 PM CDT Jordana Bender RN * Does person have difficulty dressing/bathing? Answer Date of Assessment Author No 02/24/2024 4:00 PM CDT Jordana Bender RN * Does person have difficulty doing errands alone? Answer Date of Assessment Author No 02/24/2024 4:00 PM CDT Jordana Bender RN documented as of this encounter Mental Status * Does person have difficulty concentrating/remembering/making decisions? Answer Entry Date Author No 02/24/2024 4:00 PM CDT Jordana Bender RN documented in this encounter Plan of Treatment Upcoming Encounters Date Type Department Care Team (Late st Contact Info) Description 02/17/2025 11:00 AM CDT Office Visit [facility] [address] [facility] [address] [place] [phone] [place] [address] [address] documented as of this encounter Visit Diagnoses Not on filedocumented in this encounter Care Teams Oil Heaterman Relationship Specialty Start Date End Date Koko Sol DO [address] [place] [address] PCP - General Internal Medicine 02/11/24 Arina Dobbins RN Vegetable Farming Supervisor 05/11/15 documented as of this encounter
--- OUTSIDE RECORDS SUMMARY | 2025-01-27 01:02 | XMS_ITS | Encounter Summary ---
Author Organization [facility] Address [address] [place] [address] Phone Care Team Providers Care Channel Development Director Name Role Phone [facility] Primary Care Provider [phone] Koko Sol DO Primary Care Provider [phone] Migdalia Pfeiffer MD Primary Care Provider [phone] Encounter Details Date Type Department Care Team (Latest Contact Info) Description 03/21/2020 Orders Only [facility] Scanning, Provider Social History Tobacco Use Types Packs/Day Years Used Date Smoking Tobacco: Former Smokeless Tobacco: Never Alcohol Use Standard Drinks/Week Comments Yes 1 (1 standard drink = 0.6 oz pur e alcohol) Sex and Gender Information Value Date Recorded Sex Assigned at Not on file Legal Sex Male 4:35 AM [employer]IVIL [employer] Gender Identity Not on file Sexual Orientation Not on file documented as of this encounter Plan of Treatment Not on file documented as of this encounter Procedures Procedure Name Priority Date/Time Associated Diagnosis Comments SCAN - LABS 03/21/2020 documented in this encounter Results * SCAN - LABS (03/21/2020) us Provider Scanning Final Result documented in this encounter Visit Diagnoses Not on filedocumented in this encounter Additional Health Concerns Infection Onset Date Last Indicated Resolved Time COVID: Suspected 11/03/2021 11/03/2021 11/03/2021 5:02 PM CDT documented as of this encounter Care Teams Channel Development Director Relationship Specialty Start Date End Date [facility], [facility] [address] [place] [address] PCP - General 04/20/19 05/12/23 Koko Sol DO [address] [place] [address] PCP - General Internal Medicine 05/13/23 11/30/24 Migdalia Pfeiffer MD [address] [facility] [place] [address] PCP - General Internal Medicine 12/01/24 documented as of this encounter
--- OUTSIDE RECORDS SUMMARY | 2025-01-27 01:02 | XMS_ITS | Referral Summary ---
Author Organization [facility] [address] Address [address] [place] [address] Care Team Providers Care Gameroom Technician Name Role Phone Migdalia Pfeiffer MD Primary Care Provider [phone] Encounters Date Type Department Care Team Description 01/17/2025 11:30 AM CDT Office Visit [facility] Cardiology [address] [facility] Floor [address], [address] [place] [phone] Tito Costello MD Preop cardiovascular exam (Primary Dx); Essential hypertension; Orthostasis; Atypical chest pain 01/12/2025 11:30 AM CDT [facility] [address] [facility] 4th Floor [address] [place] [address] Julius Jarrett DPM Follow-up exam [Z09] (Primary Dx); DM (diabetes mellitus) type II, controlled, with peripheral vascular disorder (HCC) [E11.51] 01/04/2025 10:49 AM CDT - 01/04/2025 11:59 PM CDT Hospital Encounter [facility] [address] [place] [address] Seronegative rheumatoid arthritis (HCC); High risk medication use Discharge Disposition: Discharge to home or self care 01/04/2025 12:30 PM CDT Lab [facility] Endocrinology Metabolism and Lipid [address] [facility] 5th [place] [address] [place] [address] Seronegative rheumatoid arthritis (HCC); High risk medication use 01/04/2025 9:40 AM CDT Office Visit [facility] Rheumatology [address] [facility] [facility] 5th [place] [address] [place] [address] Cristina Hernandez MD High risk medication use (Primary Dx); Seronegative rheumatoid arthritis (HCC); Paresthesia of left upper extremity; Paresthesia of right upper extremity 12/14/2024 11:00 AM CDT Ancillary Procedure [facility] Vascular Lab at the [facility] [address] [facility] [address] [facility] 8th [place] [address] [place] [address] Type II diabetes mellitus with peripheral circulatory disorder (HCC) 12/01/2024 Telephone [facility] Neuro Sleep [address] [facility] 6th Floor [address] [place] [phone] Joslyn Sheth MA DME 12/01/2024 11:00 AM CDT Office Visit [facility] Neuro Sleep [address] [facility] 6th Floor [address] [place] [phone] Rafi Horvath MD KANA on CPAP (Primary Dx); Hypersomnia from Last 3 Months Allergies Active Allergy Reactions Criticality Noted Date Comments Acetaminophen Other (See comments) 01/11/2025 liver Ibuprofen Other (See comments) 01/11/2025 History of GI bleeds Ketorolac Unknown,Other (See comments) Low 07/22/2015 Platelet count decreased Platelet count decreased causes platelet count to decrease Medications PROBIOTIC FORMULA, INULIN, 1 billion-250 cell-mg capsule 8 Active cetirizine (ZyrTEC) 10 mg tablet Take 1 tablet (10 mg total) by mouth Active rosuvastatin (CRESTOR) 5 mg tablet daily. Active DULoxetine DR (CYMBALTA) 60 mg capsule 90 mg Active empagliflozin (JARDIANCE) 10 mg tabletIndicatio ns:type 2 diabetes mellitus Take 1 tablet (10 mg total) by mouth daily 8 Active HORIZANT 600 mg tablet extended release 8 Active metFORMIN (GLUCOPHAGE) 1,000 mg tablet Take 1 tablet (1,000 mg total) by mouth 2 (two) times a day with meals Active nystatin-triamc inolone creamIndication s:cutaneous candidiasis 2 times daily 5 Active triamcinolone (KENALOG) 0.1 % ointment Apply topically as needed Active traZODone (DESYREL) 100 mg tablet 9 Active traMADol (ULTRAM) 50 mg tablet Take 1 tablet (50 mg total) by mouth as needed for pain Active carbidopa-levod opa (SINEMET) 25-100 mg per tablet Take 1 tablet by mouth 4 (four) times a day 9 Active donepeziL (ARICEPT) 10 mg tablet Take 1 tablet (10 mg total) by mouth nightly 1 Active albuterol HFA (PROVENTIL HFA,VENTOLIN HFA,PROAIR HFA) 90 mcg/actuation inhalerIndicati ons:Medication refill Inhale 2 puffs every 4 (four) hours as needed for wheezing 1 each 2 Active budesonide 6 mg capsule, extended release 2 Active memantine (NAMENDA) 5 mg tablet Take 1 tablet (5 mg total) by mouth 2 (two) times a day 2 Active finasteride (PROSCAR) 5 mg tablet Take 1 tablet (5 mg total) by mouth daily Active esomeprazole DR (NexIUM) 20 mg capsule Take 1 capsule (20 mg total) by mouth daily before breakfast 3 Active FreeStyle Lite Strips strip 3 Active freestyle 28 gauge lancets [address] (CYMBALTA) 30 mg capsule 3 Active escitalopram (LEXAPRO) 20 mg tablet 3 Active FreeStyle Landry 3 Sensor device USE DIRECTED TO CHECK BLOOD SUGAR. CHANGE EVERY 14 DAYS. 3 Active cholecalciferol (VITAMIN D-3) 2000 unit capsule Take 100 mcg by mouth 3 Active sodium chloride (Sheridan Nasal) 0.65 % nasal spray Administer into affected nostril(s) 3 Active vibegron (GEMTESA ORAL) Take by mouth daily Active semaglutide (OZEMPIC) 0.25 mg or 0.5 mg(2 mg/1.5 mL) pen injector injection Inject under the skin Active predniSONE (DELTASONE) 5 mg tablet Take 1 tablet (5 mg) by mouth daily 30 tablet 2 5 Active golimumab (Simponi) 50 mg/0.5 mL pen injectorIndicat ions:Rheumatoid Arthritis Inject 0.5 mL (50 mg total) under the skin every 30 (thirty) days 0.5 mL 2 5 Active Additional Information Patient not taking.Reason: hasn't started, Reported on 01/17/2025 Trulicity 0.75 mg/0.5 mL pen injector 3 025 Discontin ued(Thera py completed ) adalimumab (Humira,CF, Pen) 40 mg/0.4 mL pen injector kitIndications: Seronegative rheumatoid arthritis (HCC) Inject 0.4 mL (40 mg total) under the skin every 7 days 12 each 1 5 025 Discontin ued(Alter humberto therapy) predniSONE (DELTASONE) 2.5 mg tablet Take 1 tablet (2.5 mg) by mouth daily 90 tablet 1 5 025 Discontin ued(Alter humberto therapy) Active Problems Problem Noted Date Diagnosed Date 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 Using 15 blade I performed paring of keratotic lesions bilateral feet x5 total. Continue accommodative shoes to prevent additional callus formation. Pain in both feet 01/16/2025 Assessment & Plan (01/16/2025 10:29 PM CDT): This has been improve with callus care and also accommodative shoe gear. Type 2 diabetes mellitus without complication Chronic sinusitis 12/01/2024 Right bundle branch block 12/01/2024 Seronegative rheumatoid arthritis 12/01/2024 Age-related cataract of both eyes 11/26/2023 Asthma 11/26/2023 Benign prostatic hyperplasia with urinary obstru ction 11/26/2023 Crohn's disease 11/26/2023 Depression 11/26/2023 Diabetes mellitus 11/26/2023 Leukopenia 11/26/2023 Fatigue 11/26/2023 Low back pain 11/26/2023 Lumbago 11/26/2023 Nephrolithiasis 11/26/2023 Nonalcoholic steatohepatitis (DIAZ) 11/26/2023 Sensorineural hearing loss (SNHL) of both ears 0 04/10/2023 Orthostatic hypotension 03/19/2022 KATELYN positive 01/30/2021 Abnormal ANCA test 01/30/2021 Undifferentiated connective tissue disease 01/30 Parkinson's disease 07/13/2019 Daytime somnolence 04/21/2019 Spinal epidural abscess 02/09/2018 Overview (02/09/2018): History of cervical epidural abscess, July 2015, followed by Neurosurgery, Dr. Lopez at [facility], with residual right arm weakness. This was thought to be secondary to MSSA bacteremia. Bacterial endocarditis 02/09/2018 Overview (02/09/2018): Mitral valve endocarditis, MSSA bacteremia in July 2015, followed by Cardiology, Dr. Ponce at [facility]. 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 Hurst at [facility]. Thrombocytopenia 04/04/2017 Gallstone pancreatitis 10/18/2015 Obesity 05/29/2015 Non-pressure ulcer of lower extremity 05/22/2015 DM (diabetes mellitus) type II, controlled, with peripheral vascular disorder 05/08/2012 Overview (02/09/2018): Overview: IMO update 11 09 2017 Assessment & Plan (01/16/2025 10:28 PM CDT): ADA Risk Category 2 (Moderate): Peripheral arterial disease +/- loss of protective sensation. 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 Immunizations Immunization Administration Dates Next Due Influenza, Quad, Adjuvantate d, Intramuscular 05/18/2021 Influenza, Quadrivalent, Lisa l Culture-based MDCK, Antibiotic Free, Intramuscular 05/25/2019 Influenza, Quadrivalent, Hig h Dose, Preservative Free, Intrr 05/10/2020 Influenza, Quadrivalent, Spl it, Intramuscular 07/22/2005 Influenza, Quadrivalent, Spl it, Preservative Free, Intramuscular 06/02/2018,06/03/2017 Influenza, Split 07/22/2005 Influenza, Trivalent, Cell C ulture-based MDCK, Preservative Free, Antibiotic Free, Intramuscular 05/25/2019 Influenza, Trivalent, IM (MDV) 05/07/2012 Influenza, Trivalent, Preser vative Free, Intramuscular 06/12/2016 Influenza, Unspecified 04/11/2015,05/07/2012, Influenza, Whole 06/10/2002 Pfizer SARS-CoV-2 Monovalent Vaccination (12+ Yrs) PURPLE 10/26/2020,10/05/2020 Pneumococcal Conjugate Pcv20 11/26/2022 Td, adsorbed 11/26/2022 Tdap 06/15/2010 Social History Tobacco Use Types Packs/Day Years Used Date Smoking Tobacco: Former Cigarettes Q uit: 1989 Smokeless Tobacco: Never Tobacco Cessation:Counseling Given: Not Answered Alcohol Use Standard Drinks/Week Comments Yes 1 (1 standard drink = 0.6 oz pur e alcohol) AUDIT-C Answer Date Recorded Q1: How often do you have a drink containing alc ohol? Monthly or less 11/26/2023 Q2: How many drinks containi ng alcohol do you have on a typical day when you are drinking? 1 or 2 11/26/2023 Frequency of Binge Drinking Not on file 11/09 Hunger Vital Sign Answer Date Recorded Within the past 12 months, y ou worried that your food would run out before you got the money to buy more. Never true 01/13/20 25 Within the past 12 months, t he food you bought just didn't last and you didn't have money to get more. Never true 01/12/2025 Sex and Gender Information Value Date Recorded Sex Assigned at Not on file Legal Sex Male 4:35 AM ORACLE DBA Gender Identity Not on file Sexual Orientation Not on file Last Filed Vital Signs Vital Sign Reading Time Taken Comments Blood Pressure 133/75 01/17/2025 11:13 AM CDT Pulse 77 01/04/2025 9:28 AM CDT Temperature 36.3 C (97.4 F) 01/04/2025 9:28 AM CDT Respiratory Rate 20 10/13/2024 9:30 AM ORACLE DBA Oxygen Saturation 96% 12/01/2024 10:49 AM CDT Inhaled Oxygen Concentration - - Weight 100.2 kg (221 lb) 01/17/2025 11:13 AM CDT Height 182.9 cm (6') 01/17/2025 11:13 AM CDT Body Mass Index 29.97 01/17/2025 11:13 AM CDT Plan of Treatment Not on file Procedures Procedure Name Priority Date/Time Associated Diagnosis Comments PROTEIN / CREATININE RATIO, URINE, RANDOM Routine 01/04/2025 10:49 AM CDT Seronegative rheumatoid arthritis (HCC) High risk medication use CRP (ACUTE PHASE) Routine 01/04/2025 10: 49 AM CDT Seronegative rheumatoid arthritis (HCC) High risk medication use ERYTHROCYTE SEDIMENTATION RATE Routine 01/04/2025 10:49 AM CDT Seronegative rheumatoid arthritis (HCC) High risk medication use COMPREHENSIVE METABOLIC PANEL Routine 01/04/2025 10:49 AM CDT Seronegative rheumatoid arthritis (HCC) High risk medication use CBC WITH AUTO DIFFERENTIAL Routine 01/04/2025 10:49 AM CDT Seronegative rheumatoid arthritis (HCC) High risk medication use URINALYSIS AND REFLEX TO MICROSCOPIC AND CULTURE Routine 01/04/2025 10:49 AM CDT Seronegative rheumatoid arthritis (HCC) High risk medication use US ARTERIAL DOPPLER LOWER EXTREMITY BILATERAL Schedule Routine, Read Routine (OP Routine) 12/14/2024 11:03 AM CDT Type II diabetes mellitus with peripheral circulatory disorder (HCC) LIPID PANEL Routine 10/14/2022 12:38 PM ORACLE DBA Chest pain, unspecified type High risk medication use HEPATITIS PANEL, ACUTE Routine 01/02/2021 10:32 AM CDT Thrombocytopenia Arthralgia, unspecified joint HEMOGLOBIN A1C Routine 04/20/2019 12:26 PM CDT from Last 3 Months or Most Recently Relevant to Health Maintenance Results * (ABNORMAL) Urinalysis reflex to microscopic and culture Urine, clean voided (01/04/2025 10:49 AM CDT) Color, ur Yellow Yellow Clarity, ur Clear Clear [facility] Specific gravity, ur >1.042(H) 1.003 - 1.030 [facility] pH, urine 6.0 [facility] Comment: Interpretive Data U rine pH is affected by diet, medications, systemic acid-base disturbances, and renal tubular function. pH may affect urinary stone formation. For example, urine pH below 6.0 may help reduce the tendency for calcium phosphate stones and pH greater than 6.0 may reduce the tendency for uric acid stone formation. Source: [facility] Current Interpretive Data was last revised on 2017 Protein, ur ql Negative Negative [facility] Glucose, ur ql 4+(A) Negative [facility] Ketones, ur Negative Negative [facility] Bilirubin, ur Negative Negative [facility] Blood, ur Negative Negative [facility] Urobilinogen, ur <2.0 <2.0 mg/dL [facility] Nitrite, ur Negative Negative [facility] Leukocyte esterase, ur Negative Negative [facility] UA reflex comment Reflex conditions for microscopic UA and culture not met. [facility] Urine, clean voided 01/04/2025 10:49 AM CDT 01/04/2025 2:00 PM CDT us Cristina Hernandez MD LAB MICROBIOLOGY - GENERAL ORDER RAYMOND Final [facility] [place] [address] * (ABNORMAL) CBC with auto differential (01/04/2025 10:49 AM CDT) White Blood Count 3.4(L) 3.6 - 11.2 K/uL [facility] RBC 4.56 4.06 - 5.63 M/uL [facility] Hemoglobin 14.6 13.0 - 17.5 g/dL [facility] Hematocrit 42.3 40.7 - 50.3 % [facility] MCV 92.7 80.0 - 97.6 fL [facility] MCH 32.0 26.7 - 33.7 pg [facility] MCHC 34.5 32.7 - 35.5 g/dL [facility] RBC Dist Width 15.4 12.3 - 17.0 % [facility] Platelet Count 72(L) 140 - 440 K/uL [facility] Comment:Repeated and Verifie d MPV 9.0 6.8 - 10.4 fL [facility] Neutrophils % 50.7 38.7 - 74.5 % [facility] Lymphocyte % 30.7 20.0 - 54.3 % [facility] Monocytes % 9.6 4.3 - 13.5 % [facility] Eosinophils % 8.6(H) 0.0 - 6.0 % [facility] Basophil % 0.4 0.0 - 3.0 % [facility] Absolute Neutrophil 1.7(L) 1.8 - 6.6 K/uL [facility] Absolute Lymphocyte 1.0 0.8 - 3.3 K/uL [facility] Absolute Monocyte 0.3 0.2 - 1.2 K/uL [facility] Absolute Eosinophil 0.3 0.0 - 0.5 K/uL [facility] Absolute Basophil 0.0 0.0 - 0.2 K/uL [facility] Nucleated RBC % 0.2 0.0 - 0.4 /100 WBC [facility] Blood 01/04/2025 10:4 9 AM CDT 01/04/2025 11:08 AM CDT us Cristina Hernandez MD LAB BLOOD ORDERABLES Final Resul t [facility] CORE LAB [facility] * Protein / creatinine ratio, urine, random (01/04/2025 10:49 AM CDT) Protein, ur, quant 6.5 mg/dL Comment: Interpretive Data No reference range established. Current interpretive data was last revised 2018. Creatinine Ur 46.2 mg/dL [facility] Comment: Interpretive Data No reference range established. Current interpretive data was last revised 2018. Protein/creatinin e ratio 140.7 0.0 - 180.0 mg/g CR [facility] Urine 01/04/2025 10:4 9 AM CDT 01/04/2025 2:00 PM CDT Cristina Hernandez MD LAB URINE ORDERABLES Final Resul t Performing Organization Address [facility] de Phone Number [facility] [place] [address] * (ABNORMAL) Erythrocyte sedimentation rate (01/04/2025 10:49 AM CDT) Erythrocyte Sedimentation Rate 20(H) <20 mm/hr [facility] Blood 01/04/2025 10:4 9 AM CDT 01/04/2025 11:08 AM CDT Cristina Hernandez MD LAB BLOOD ORDERABLES Final Resul t Performing Organization Address City/[facility] Co de Phone Number [facility] CORE LAB [facility] * CRP (acute phase) (01/04/2025 10:49 AM CDT) C-Reactive Protein, Acute <3.0 <5.0 mg/L [facility] Blood 01/04/2025 10:4 9 AM CDT 01/04/2025 11:08 AM CDT Cristina Hernandez MD LAB BLOOD ORDERABLES Final Resul t Performing Organization Address City/[facility]/ZIP Co de Phone Number [facility] CORE LAB [facility] * (ABNORMAL) Comprehensive metabolic panel (01/04/2025 10:49 AM CDT) Total Protein 6.7 6.1 - 8.4 g/dL [facility] Albumin 3.7 3.5 - 5.2 g/dL [facility] Calcium 9.2 8.6 - 10.3 mg/dL [facility] BUN 10 7 - 23 mg/dL [facility] Total Bilirubin 1.31 0.20 - 1.40 mg/dL [facility] Alk Phos, Total 163(H) 35 - 129 IU/L [facility] AST (SGOT) 89(H) 11 - 47 IU/L [facility] ALT (SGPT) 16 6 - 53 IU/L [facility] Creatinine 0.44(L) 0.70 - 1.30 mg/dL [facility] Sodium 142 135 - 145 mmol/L [facility] Potassium 3.8 3.3 - 5.1 mmol/L [facility] Chloride 104 95 - 107 mmol/L [facility] CO2 Content 26 21 - 29 mmol/L [facility] Glucose 167(H) 64 - 99 mg/dL [facility] Comment: NONFASTING GLUCOSE RANGE = 64-199 mg/dL FASTING GLUCOSE 64 - 99 = NORMAL FASTING GLUCOSE 100 - 125 = IMPAIRED FASTING GLUCOSE FASTING GLUCOSE >=126 = PROVISIONAL DIAGNOSIS OF DIABETES eGFR >90.0 >60.0 mL/min/1.7 3 m2 [facility] Blood 01/04/2025 10:4 9 AM CDT 01/04/2025 11:08 AM CDT us Cristina Hernandez MD LAB BLOOD ORDERABLES Final Resul t [facility] CORE [facility] * US Arterial Doppler Lower Extremity Bilateral (12/14/2024 11:03 AM CDT) Anatomical Region Laterality Modality Vascular Bilateral Ultrasound 12/14/2024 10:4 2 AM CDT Narrative 12/14/2024 10:01 PM CDT [facility] - Department of Vascular Surgery, Vascular Laboratory [address] [place] [address] Lower Extremity Arterial Doppler Report Patient Name: REKHA MONROE : 1955 Study Date: 12/14/2024 10:42:00 AM Gender: M Tech: Shonna Worley Location: [facility] Provider: JULIUS JARRETT Quality: Adequate Order Provider: JULIUS JARRETT PROCEDURES: Arterial Report: Bilateral lower extremity arterial Doppler exam at rest. INDICATIONS: Nonpalpable dorsalis pedis pulses and sluggish capillary filling of the digital level. History of foot pain at rest. Dx: Type II diabetes mellitus with peripheral circulatory disorder (HCC) [E11.51 (ICD-10-CM)] E11.51 Type 2 diabetes mellitus with diabetic peripheral angiopathy without gangrene. MEASUREMENTS: Right Value Units Left Value Units Rt Brachial Pressure 127 mmHg Lt Brachial Pressure 129 mmHg Rt PROFESSOR OF PHILOSOPHY Pressure 146 mmHg Lt PROFESSOR OF PHILOSOPHY Pressure 144 mmHg Rt DPA Pressure 145 mmHg Lt DPA Pressure 136 mmHg Rt 1st Digit Pressure 180 mmHg Lt 1st Digit Pressure 144 mmHg Rt PT PRECIOUS Resting 1.13 Lt PT PRECIOUS Resting 1.12 Rt AT PRECIOUS Resting 1.12 Lt AT PRECIOUS Resting 1.05 Rt Digit/Arm Index 1.4 Lt Digit/Arm Index 1.12 Right Value Units Left Value Units FINDINGS: Performing Crepe Sole Scourer: Shonna Worley RVT, MIL. [employer] [facility] [employer] [facility] student Ashley Moctezuma. Right All Levels: The right common femoral, popliteal, posterior tibial and anterior tibial artery waveforms are multiphasic. Left All Levels: The left common femoral, popliteal, posterior tibial and anterior tibial artery waveforms are multiphasic. Right Digits: Normal right digit pressure and waveform. Left Digits: Normal left digit pressure and waveform. CONCLUSIONS: 1. The above listed Ankle/Brachial Indices at rest are within normal limits bilaterally (for reference, normal resting PRECIOUS is 0.9 to 1.4; PRECIOUS >1.4 due to non- compressible arteries is not diagnostic). 2. Bilateral Digit/Arm Indices are within normal limits (for reference, normal ELLEN is >0.6). 3. The bilateral lower extremity arterial Doppler reveals multiphasic waveforms in all distributions above with normal ankle/brachial indices and digit pressures. No evidence of lower extremity arterial occlusive disease at rest bilaterally. HISTORY: DM2, HLD, HTN. PREVIOUS STUDIES: No previous studies for comparison. DISCLAIMER: The study images and the final report will be retained in the patient chart by the Vascular Laboratory for the legally required time period. This chart constitutes the legal record of any testing performed. ATTESTATION: I have reviewed and interpreted the pertinent images and measurements of this study. I attest to the conclusions in the final report that is provided above. Electronically Signed By: Rashad Alba MD FACS 12/14/2024 8:43:15 PM CDT Procedure Note Rashad Alba MD - 12/14/2024 [employer] - Department of Vascular Surgery,Vascular Laboratory [address] [place] [id number] Lower Extremity Arterial Doppler Report Patient Name: REKHA MONROE : 1955 Study Date: 12/14/2024 10:42:00 AM Gender: M Tech: Shonna Worley Location: [facility] Ref Provider: JULIUS JARRETT Quality: Adequate Order Provider: JULIUS JARRETT PROCEDURES: Arterial Report: Bilateral lower extremity arterial Doppler exam at rest. INDICATIONS: Nonpalpable dorsalis pedis pulses and sluggish capillary filling of thedigital level. History of foot pain at rest. Dx: Type II diabetes mellitus with peripheral circulatory disorder (HCC)[E11.51 (ICD-10-CM)] E11.51 Type 2 diabetes mellitus with diabetic peripheral angiopathywithout gangrene. MEASUREMENTS: Right Value Units Left Value Units Rt Brachial Pressure 127 mmHg Lt Brachial Pressure 129 mmHg Rt PROFESSOR OF PHILOSOPHY Pressure 146 mmHg Lt PROFESSOR OF PHILOSOPHY Pressure 144 mmHg Rt DPA Pressure 145 mmHg Lt DPA Pressure 136 mmHg Rt 1st Digit Pressure 180 mmHg Lt 1st Digit Pressure 144 mmHg Rt PT PRECIOUS Resting 1.13 Lt PT PRECIOUS Resting 1.12 Rt AT PRECIOUS Resting 1.12 Lt AT PRECIOUS Resting 1.05 Rt Digit/Arm Index 1.4 Lt Digit/Arm Index 1.12 Right Value Units Left Value Units FINDINGS: Performing Crepe Sole Scourer: Shonna Worley RVT, MIL. [employer] [facility] [employer] [facility] student Ashley Moctezuma. Right All Levels: The right common femoral, popliteal, posterior tibial and anterior tibialartery waveforms are multiphasic. Left All Levels: The left common femoral, popliteal, posterior tibial and anterior tibialartery waveforms are multiphasic. Right Digits: Normal right digit pressure and waveform. Left Digits: Normal left digit pressure and waveform. CONCLUSIONS: 1. The above listed Ankle/Brachial Indices at rest are within normallimits bilaterally (for reference, normal resting PRECIOUS is 0.9 to 1.4; PRECIOUS >1.4 due tonon- compressible arteries is not diagnostic). 2. Bilateral Digit/Arm Indices are within normal limits (for reference,normal ELLEN is >0.6). 3. The bilateral lower extremity arterial Doppler reveals multiphasicwaveforms in all distributions above with normal ankle/brachial indices and digitpressures. No evidence of lower extremity arterial occlusive disease at rest bilaterally. HISTORY: DM2, HLD, HTN. PREVIOUS STUDIES: No previous studies for comparison. DISCLAIMER: The study images and the final report will be retained in the patientchart by the Vascular Laboratory for the legally required time period. This chartconstitutes the legal record of any testing performed. ATTESTATION: I have reviewed and interpreted the pertinent images and measurements ofthis study. I attest to the conclusions in the final report that is provided above. Electronically Signed By: Rashad Alba MD, FACS 12/14/2024 8:43:15 PM CDT us Julius Jarrett DPM IMG US PROCEDURES Final R esult * Lipid panel (10/14/2022 12:38 PM ORACLE DBA) Cholesterol 140 30 - 199 mg/dL [facility] Comment: Interpretive Data Ages < or = 19 years Acceptable: <170 mg/dL Borderline high: 170-199 mg/dL High: >or= 200 mg/dL Ages > or = 20 years Desirable: <200 mg/dL Borderline high: 200-239 mg/dL High: >or= 240 mg/dL Literature References: 1. Expert Panel on Integrated Guidelines for Cardiovascular Health and Risk Reduction in Children and Adolescents. Pediatrics 2011;128:S213 2. NCEP Expert Panel. Circulation 2004;110:227 Current Interpretive Data was last revised on 2018. Triglycerides 102 <=149 mg/dL [facility] Comment: Interpretive Data Ages < or = 9 years Acceptable: <75 mg/dL Borderline high: 75-99 mg/dL High: >or= 100 mg/dL Ages 10 to 20 years Acceptable: <90 mg/dL Borderline high: 90-129 mg/dL High: >or= 130 mg/dL Ages > or = 20 years Desirable: <150 mg/dL Borderline high: 150-199 mg/dL High: 200-499 mg/dL Very high: >or= 499 mg/dL Literature References: 1. Expert Panel on Integrated Guidelines for Cardiovascular Health and Risk Reduction in Children and Adolescents. Pediatrics 2011;128:S213 2. NCEP Expert Panel. Circulation 2004;110:227 Current Interpretive Data was last revised on 2018. HDL 59 >=40 mg/dL [facility] Comment: Interpretive Data Ages < or = 19 years Acceptable: >45 mg/dL Borderline low: 40-45 mg/dL Low: <40 mg/dL Ages > or = 20 years Desirable: >or= 60 mg/dL Low: <40 mg/dL Literature References: 1. Expert Panel on Integrated Guidelines for Cardiovascular Health and Risk Reduction in Children and Adolescents. Pediatrics 2011;128:S213 2. NCEP Expert Panel. Circulation 2004;110:227 Current Interpretive Data was last revised on 2018. LDL, calculated 61 <=129 mg/dL [facility] Comment: Interpretive Data Ages < or = 19 years Acceptable: <110 mg/dL Borderline high: 110-129 mg/dL High: >or= 130 mg/dL Ages > or = 20 years Optimal: <100 mg/dL Near optimal: 100-129 mg/dL Borderline high: 130-159 mg/dL High: >160 mg/dL Literature References: 1. Expert Panel on Integrated Guidelines for Cardiovascular Health and Risk Reduction in Children and Adolescents. Pediatrics 2011;128:S213 2. NCEP Expert Panel. Circulation 2003;110:227 Current Interpretive Data was last revised on 2018. Non-HDL Cholesterol 81 mg/dL [facility] Comment: Interpretive Data Ages < or = 19 years Acceptable: <120 mg/dL Borderline high: 120-144 mg/dL High: >145 mg/dL Ages > or = 20 years When triglycerides are >200 mg/dL, Non-HDL cholesterol is a secondary target of therapy with treatment goals that are 30 mg/dL greater than the LDL cholesterol target. Literature References: 1. Expert Panel on Integrated Guidelines for Cardiovascular Health and Risk Reduction in Children and Adolescents. Pediatrics 2011;128:S213 2. NCEP Expert Panel. Circulation 2003;110:227 Current Interpretive Data was last revised on 2018. Chol/HDL ratio 2 [facility] Blood 10/14/2022 12:3 8 PM ORACLE DBA 10/14/2022 12:54 PM ORACLE DBA Tito Costello MD LAB BLOOD ORDERABLES Final Result Performing Organization Address [facility] de Phone Number [facility] [place] [address] * Hepatitis panel, acute (01/02/2021 10:32 AM CDT) Pathologist [facility] Hep A IgM Nonreactive Nonreactive [facility] Comment: Interpretive Data: If Hep A IgM Ab is reported as Equivocal, a new sample should be drawn in two weeks for testing. Current interpretive data was last revised on 19. Hep B core IgM Nonreactive Nonreactive [facility] Comment: Interpretive Data If HepB Core IgM Ab is reported as Equivocal, a new sample should be drawn in two weeks for testing. Current interpretive data was last revised on 19. Hep C Ab Nonreactive Nonreactive [facility] Comment:Antibodies to HCV no t detected. Does NOT exclude the possibility of recent exposure to HCV. HepBsAg Nonreactive Nonreactive [facility] Blood specimen (specimen) 01/02/2021 10:32 AM CDT 01/02/2021 12:37 PM CDT Cristina Hernandez MD LAB MICROBIOLOGY - GENERAL ORDER RAYMOND Edited Result - Final Performing Organization Address [facility] de Phone Number [facility] [place] [address] * (ABNORMAL) Hemoglobin A1c (04/20/2019 12:26 PM CDT) Hgb A1C 6.1(H) 4.0 - 5.6 % [facility] Estimated Average Glucose 128 mg/dL [facility] Comment: The ADA recommends reporting an estimated Average Glucose (eAG) with all Hemoglobin A1c results using the equation derived from a study of 507 normal and diabetic adults. Minority populations were underrepresented and children were not included. (Diabetes Care 31:6842-1027, 2008). The eAG is not equivalent to a fasting glucose. Blood specimen (specimen) 04/20/2019 12:26 PM CDT 04/20/2019 12:50 PM CDT Tito Costello MD LAB BLOOD ORDERABLES Final Result Performing Organization Address City/State/ZIP Co mt Phone Number [facility] [address] [place] [address] from Last 3 Months or Most Recently Relevant to Health Maintenance Insurance [employer] MEDICARE MEDICARE [facility] MEDICARE FOR LIFE Care Teams Gameroom Technician Relationship Specialty Start Date End Date Migdalia Pfeiffer MD [address] [place] [address] [place] [address] PCP - General Internal Medicine 12/01/24
--- OUTSIDE RECORDS SUMMARY | 2025-01-27 01:02 | XMS_ITS | Clinical Summary ---
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
--- OUTSIDE RECORDS SUMMARY | 2025-01-27 01:02 | XMS_ITS | Clinical Summary ---
Author Organization [facility] Address [address] [place] [address] Care Team Providers Care Jet Handler Name Role Phone Arina Dobbins RN Unavailable [phone] Koko Sol DO Primary Care Provider [phone] Source Comments [facility],non-owned Affiliates and Associated Physician Practices is amultiple site organization consisting of ambulatory clinics and hospital sitesin [place], [place], [place] and [place]. This disclosure is being madepursuant to the Care Everywhere program and may not contain all information available regarding this patient. Last updated 18.[facility] [employer] Allergies Active Allergy Reactions Criticality Noted Date Comments Ketorolac Other,Unknown 07/22/2015 Platelet count decreased causes platelet count to decrease Medications * Be aware that medications may not be up to date on this document. Alwaysverify current medications with the patient. metFORMIN (GLUCOPHAGE) 1000 MG tablet Take 1 (one) tablet by mouth 2 times daily with morning and evening meal Active albuterol HFA (PROVENTIL;VENTOLI N;PROAIR) 108 (90 BASE) MCG/ACT inhalerIndications :Asthma Inhale 2 Puffs by mouth every 6 hours as needed. Indications: Asthma 1 Inhaler 3 05/08/20 12 Active triamcinolone acetonide (KENALOG) 0.1 % ointmentIndication s:Dermatitis Apply to affected area 2 times daily Reasons: Skin Inflammation Active fluticasone propionate (FLONASE) 50 MCG/ACT nasal spray [place] 1 (one) spray into each nostril as needed Active empagliflozin (JARDIANCE) 25 MG tablet Take 1 (one) tablet by mouth once daily Active rosuvastatin (CRESTOR) 5 MG tablet Take 1 (one) tablet by mouth once daily Active cetirizine (ZYRTEC) 10 MG tablet Take 1 (one) tablet by mouth once daily Active Saccharomyces boulardii (PROBIOTIC) 250 MG CAPS Active DULoxetine (Cymbalta) 60 MG capsule 2 (two) capsules 01/30/20 22 Active finasteride (Proscar) 5 MG tablet Take 1 (one) tablet by mouth once daily Unsure of dose. Active escitalopram (Lexapro) 20 MG tablet Take 1 (one) tablet by mouth once daily Active traZODone (Desyrel) 100 MG tablet Take 1 (one) tablet by mouth at bedtime Active Dulaglutide (TRULICITY SC) Unsure of dose. Active Humira Pen 40 MG/0.4ML injection every 7 days 04/16/20 23 Active predniSONE (Deltasone) 2.5 MG tablet Take 1 (one) tablet by mouth once daily 10/17/19 24 Active carbidopa-levodopa (Sinemet) 25-100 MG tabletIndications: Parkinson's disease without dyskinesia or fluctuating manifestations (HCC),Tremor Take 1 (one) tablet by mouth 4 times daily 120 tablet 11 02/11/20 24 Active donepezil (Aricept) 10 MG tabletIndications: Memory loss Take 1 (one) tablet by mouth 2 times daily 180 tablet 3 02/11/20 24 Active memantine (Namenda) 5 MG tabletIndications: Memory loss Take 1 (one) tablet by mouth 2 times daily 180 tablet 3 02/11/20 24 Active traMADol (Ultram) 50 MG tablet Take 1 (one) tablet by mouth every 6 hours as needed for Pain 12 tablet 04/13/20 24 Active Active Problems Problem Noted Date Diagnosed Date Gallstone pancreatitis 10/18/2015 Cellulitis 05/12/2015 Ulcer of left lower extremity 05/12/2015 Chest pain 05/08/2012 Thrombocytopenia, secondary 05/08/2012 Leukopenia 05/08/2012 DM (diabetes mellitus) type II, controlled, with peripheral vascular disorder 05/08/2012 Overview (11/08/2017): IMO update 11 09 2017 Venous insufficiency 05/08/2012 Hyperlipidemia 05/08/2012 Asthma 05/08/2012 Hypertension 05/08/2012 Encounters Date Type Department Care Team Description 01/08/2025 Results Follow-Up [place] [id number] [address] Kiran Beltran MD from Last 3 Months Immunizations Immunization Administration Dates Next Due Covid Pfizer primary monoval ent 12+ yr 0.3mL Purple cap 10/26/2020,10/05/2020 FLU VACCINE TRI IIV3 SPLIT P F IM (FLUVIRIN) 06/12/2016 INFLUENZA VACCINE 04/11/2015, 2,07/22/2005,2001 INFLUENZA VACCINE, CELL CULT URE, QUADR. (FLUCELVAX QUADRIVALENT; 6MO+), 0.5 ML (CCIIV4) 05/25/2019 INFLUENZA VACCINE, QUADR. (A FLURIA, FLUZONE QUADRIVALENT; 6MO+) (IIV4) 07/22/2005 INFLUENZA VACCINE, QUADR. (F LUZONE; FLULAVAL; FLUARIX; AFLURIA QUADRIVALENT; 6MO+), 0.5 ML (IIV4) 06/02/2018,06/03/2017 TDAP (7yrs+) 06/15/2010 Family History Medical History Relation Name Comments Anemia Father Arthritis - Rheumatoid Mother Diabetes Mother Lupus Mother Relation Name Status Comments Father Mother Social History Tobacco Use Types Packs/Day Years Used Date Smoking Tobacco: Former Cigarettes Smokeless Tobacco: Never Tobacco Cessation:Counseling Given: Not Answered Comments:3cigarettes/yr, quit smoking over 35 years ago Alcohol Use Standard Drinks/Week Comments No 1.7 (1 standard drink = 0.6 oz p ure alcohol) PHQ-2 Answer Date Recorded Patient Health Questionnaire-2 Score 2 04/19/2024 Sex and Gender Information Value Date Recorded Sex Assigned at Male 03/05/2024 9:26 AM CDT Legal Sex Male 6:31 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 DIRECTOR Gender Identity Not on file Sexual Orientation Not on file 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 Job End Date 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 Not on file Not on file 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 on 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 Not on file Not on file Last Filed Vital Signs Vital Sign Reading Time Taken Comments Blood Pressure 144/71 04/13/2024 3:31 PM CDT Pulse 101 08/19/2024 10:03 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 DIRECTOR Temperature 36.4 C (97.5 F) 04/13/2024 2:42 PM CDT Respiratory Rate 18 08/19/2024 10:03 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 DIRECTOR Oxygen Saturation 96% 08/19/2024 10:03 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 DIRECTOR Inhaled Oxygen Concentration 40% 07/26/2015 4 :25 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 DIRECTOR Weight 103 kg (227 lb) 08/19/2024 10:03 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 DIRECTOR Height 182.9 cm (6') 08/19/2024 10:03 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 DIRECTOR Body Mass Index 30.79 08/19/2024 10:03 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 DIRECTOR Plan of Treatment Upcoming Encounters Date Type Department Care Team (Late st Contact Info) Description 02/17/2025 11:00 AM CDT Office Visit [facility] [address] [facility] [address] [place] [address] [place] [id number] [address] Health Maintenance Due Date Last Done Comments COLOGUARD (AGES 45-75) - COLON CA SCREENING 1955 CT COLONOGRAPHY - COLON CA SCREENING 1955 FIT - COLON CA SCREENING 1955 FLEX SIG - COLON CA SCREENING 1955 MEDICARE AWV 12 MONTHS 1955 PNEUMOCOCCAL VACCINE 50+ (1 of 2 - PCV) 01/08/1972 ZOSTER VACCINE (1 of 2) 2003 Respiratory Syncytial Virus (RSV) Vaccine Pt: or over 60 yrs (1 - Risk 60-74 years 1-dose series) 2013 AAA SCREENING 2018 DIABETES RETINOPATHY SCREENING 12/23/2018 10/17/2014, 09/21/2012, 07/12/2011, Additional history exists DIABETES-FOOT EXAM WITH MONOFILAMENT 12/23/2018 DIABETES-HGB A1C 10/19/2019 04/20/2019, 08/2014, 05/07/2012 DTAP/TDAP/TD VACCINES (2 - Td or Tdap) 06/15/2020 06/15/2010 COVID-19 VACCINE (3 - season) 2024 10/26/2020, 10/05/2020 DEPRESSION SCREENING 08/11/2024 04/02/2024 DIABETES - URINE PROTEIN SCREENING 08/11/2024 DIABETES-SERUM CREATININE 09/19/20242023, 02/21/2023, 01/14/2023, Additional history exists COLON MONITORING 08/28/2027 08/28/2022, , 02/04/2019, Additional history exists Colorectal Cancer Screening 08/28/2027 COLONOSCOPY - COLON CA SCREENING 08/28/2032 08/28/2022, 08/28/2022, 02/04/2019, Additional history exists HEPATITIS C SCREENING Completed 07/24/2015, 012 INFLUENZA VACCINE Completed 03/11/2024, , 06/02/2018, Additional history exists HEPATITIS B VACCINE Aged Out No longe r eligible based on patient's age to complete this topic HIB VACCINE Aged Out No longer eligi ble based on patient's age to complete this topic HPV VACCINE Aged Out No longer eligi ble based on patient's age to complete this topic MENINGOCOCCAL (Group B) VACCINE SHARED DECISION-MAKING Aged Out No longer eligible based on patient's age to complete this topic MENINGOCOCCAL GROUPS A/C/Y/W VACCINE Aged Out No longer eligible based on patient's age to complete this topic Procedures Procedure Name Priority Date/Time Associated Diagnosis Comments ENDOSCOPY, COLON, DIAGNOSTIC Routine 08/28/2022 7:25 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 DIRECTOR Rectal bleeding COMPREHENSIVE METABOLIC PANEL Routine 08/15/2022 12:20 PM 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 DIRECTOR Other cirrhosis of liver HEPATITIS C RNA QUANTITATIVE AM Draw 07/24/2015 2:43 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 DIRECTOR HEMOGLOBIN A1C Routine 05/11/2015 6:59 AM CDT from Last 3 Months or Most Recently Relevant to Health Maintenance Results * ENDOSCOPY, COLON, DIAGNOSTIC (08/28/2022 7:25 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 DIRECTOR) Report Endoscopy POC _ Patient Name: Rekha Sigala Procedure Date: 08/28/2022 7:25 AM Date of : 1955 Admit Type: Outpatient Age: 67 Gender: Male Ethnicity: Not or Race: White Attending MD: Declan Hurst MD _ Procedure: Colonoscopy Indications: Hematochezia Providers: Declan Hurst MD (Doctor), Chanel Ornelas RN, Phyllis Salazar, Waiter/Waitress Club Patient Profile: 67M presents for eval of rectal bleeding. last exam 4 yrs prior Referring MD: [address] [place] [address] [facility] ([facility] Medicines: Monitored Anesthesia Care Complications: No immediate complications. _ Estimated Blood Loss: Estimated blood loss: none. Procedure: Pre-Anesthesia Assessment: - Prior to the procedure, a History and Physical was performed, and patient medications and allergies were reviewed. The patient's tolerance of previous anesthesia was also reviewed. The risks and benefits of the procedure and the sedation options and risks were discussed with the patient. All questions were answered, and informed consent was obtained. Prior Anticoagulants: The patient has taken no previous anticoagulant or antiplatelet agents. ASA Grade Assessment: II - A patient with mild systemic disease. After reviewing the risks and benefits, the patient was deemed in satisfactory condition to undergo the procedure. - Prior to the procedure, a History and Physical was performed, and patient medications and allergies were reviewed. The patient's tolerance of previous anesthesia was also reviewed. The risks and benefits of the procedure and the sedation options and risks were discussed with the patient. All questions were answered, and informed consent was obtained. Prior Anticoagulants: The patient has taken no previous anticoagulant or antiplatelet agents. ASA Grade Assessment: II - A patient with mild systemic disease. After reviewing the risks and benefits, the patient was deemed in satisfactory condition to undergo the procedure. After I obtained informed consent, the scope was passed under direct vision. Throughout the procedure, the patient's blood pressure, pulse, and oxygen saturations were monitored continuously. The Colonoscope was introduced through the anus and advanced to the cecum, identified by appendiceal orifice and ileocecal valve. The colonoscopy was performed without difficulty. The patient tolerated the procedure well. The quality of the bowel preparation was fair. The ileocecal valve, appendiceal orifice, and rectum were photographed. Impression: - Preparation of the colon was fair. - Internal hemorrhoids. - No specimens collected. Findings: The perianal and digital rectal examinations were normal. Internal hemorrhoids were found during retroflexion. The hemorrhoids were small. _ Recommendation: - High fiber diet. - Repeat colonoscopy in 5 years for surveillance. Procedure Code(s): --- Professional --- 55123, Colonoscopy, flexible; diagnostic, including collection of specimen(s) by brushing or washing, when performed (separate procedure) --- Technical --- 72877, Colonoscopy, flexible; diagnostic, including collection of specimen(s) by brushing or washing, when performed (separate procedure) Diagnosis Code(s): --- Professional --- K64.8, Other hemorrhoids K92.1, Melena (includes Hematochezia) --- Technical --- K64.8, Other hemorrhoids K92.1, Melena (includes Hematochezia) CPT copyright 2019 [employer]. All rights reserved. The codes documented in this report are preliminary and upon aoc plans intelligence officer chief review may be revised to meet current compliance requirements. Declan Hurst MD 08/28/2022 9:07:58 AM This report has been signed electronically. Number of Addenda: 0 Note Initiated On: 08/28/2022 7:25 AM [facility] ENDOSCOPY 08/28/2022 7:25 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 DIRECTOR Narrative Procedure Note Declan Hurst MD - 08/28/2022 9:08 AM CST Colonoscopy Small int hemorrhoids Nl otherwise Psyllium Rpt 5 yrs us Declan Hurst MD GI PROCEDURE ORDERABLES Edited R esult - Final [facility] ENDOSCOPY * (ABNORMAL) COMPREHENSIVE METABOLIC PANEL (08/15/2022 12:20 PM 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 DIRECTOR) Glucose 110(H) 65 - 99 mg/dL [facility] Comment: Fasting reference interval For someone without known diabetes, a glucose value between 100 and 125 mg/dL is consistent with prediabetes and should be confirmed with a follow-up test. BUN 8 7 - 25 mg/dL [facility] Creatinine 0.53(L) 0.70 - 1.35 mg/dL [facility] eGFR by Cystatin C 108 > OR = 60 mL/min/1.7 3m2 [facility] Comment: The eGFR is based on the CKD-EPI 2020 equation. To calculate the new eGFR from a previous Creatinine or Cystatin C result, go to https://www.kidney.org/professionals/ kdoqi/gfr%5Fcalculator BUN/Creatinine Ratio 15 6 - 22 (calc) [facility] Sodium 143 135 - 146 mmol/L [facility] Potassium 4.5 3.5 - 5.3 mmol/L [facility] Chloride 104 98 - 110 mmol/L [facility] CO2 33(H) 20 - 32 mmol/L [facility] Calcium 9.1 8.6 - 10.3 mg/dL [facility] Protein Total 6.6 6.1 - 8.1 g/dL [facility] Albumin 3.9 3.6 - 5.1 g/dL [facility] Globulin Total 2.7 1.9 - 3.7 g/dL (calc) [facility] Albumin/Globulin Ratio 1.4 1.0 - 2.5 (calc) [facility] Bilirubin Total 1.6(H) 0.2 - 1.2 mg/dL [facility] Alkaline Phosphatase 144 35 - 144 U/L [facility] AST 54(H) 10 - 35 U/L [facility] ALT 28 9 - 46 U/L [facility] Comment: Test Performed at: [employer] [id number] [place] [address] DEWAYNE SEBASTIAN DO,MPH Blood BLOOD SPECIMEN / Unknown 08/15/2022 12:20 PM 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 DIRECTOR 08/15/2022 12:21 PM 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 DIRECTOR us Karla Josie INTERNET DATABASE SPECIALIST-MULTIFOCAL LENS ASSEMBLER LAB - CHEMISTRY ORDER RAYMOND Final Result [facility] [address] [place] [address] * HEPATITIS C RNA QUANTITATIVE PCR (07/24/2015 2:43 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 DIRECTOR) Hepatitis C Virus RNA Quantitative <15 IU/mL 07/26/2015 8:40 AM [facility] [employer] ([facility]) Hepatitis C Virus RNA Log Quantitative <1.2 log IU 07/26/2015 8:40 AM [facility] [employer] ([facility]) Comment: INTERPRETIVE INFORMATION: Hepatitis C Virus by Quantitative PCR The quantitative range of this assay is 1.2 - 8.0 log IU/mL (15- 100,000,000 IU/mL). Limit of detection (LOD): 15 IU/mL (1.2 log IU/mL) LOD values do not apply to diluted specimens. An interpretation of Not Detected does not rule out the presence of PCR inhibitors in the patient specimen or hepatitis C virus RNA concentrations below the level of detection of the test. Care should be taken when interpreting any single viral load determination. This test should not be used for blood donor screening, associated re-entry protocols, or for screening Human Cell, Tissues and Cellular Tissue-Based Products (HCT/P). Interpretation Hepatitis C RNA Quantitative Not Detected Not Detected 07/26/2015 8:40 AM [facility] [employer] [facility]) EER HCV See Note 07/26/2015 8:40 AM [facility] [employer] ([facility]) Comment: To download an enhanced report for this test go to: [email or web address] Blood specimen (specimen) BLOOD SPECIMEN / Unknown Lab Venipuncture / Unknown 07/24/2015 2:43 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 DIRECTOR 07/24/2015 3:25 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 DIRECTOR Scotty Castillo INTERNET DATABASE SPECIALIST-MULTIFOCAL LENS ASSEMBLER LAB - CHEMISTRY ORDERABLE S Final Result [facility] ([facility]) [address] * HEMOGLOBIN A1C (05/11/2015 6:59 AM CDT) Pathologist [facility] Hemoglobin A1c 6.1 4.2 - 6.3 % 05/11/2015 8:36 AM CDT [facility] Estimated Average Glucose 128 mg/dL 05/11/2015 8:36 AM CDT [facility] Whole Blood BLOOD SPECIMEN WITH EDTA / Unknown Lab Venipuncture / Unknown 05/11/2015 6:59 AM CDT 05/11/2015 7:10 AM CDT Tamiko Mcclain INTERNET DATABASE SPECIALIST-MULTIFOCAL LENS ASSEMBLER LAB - CHEMISTRY ORDERABL ES Final Result Performing Organization Address [facility] de Phone Number [facility] [address] [place] [address] from Last 3 Months or Most Recently Relevant to Health Maintenance Insurance MEDICARE [facility] MEDICARE [facility] Advance Directives Documents on File Type Date Recorded Patient Sec Accountant Expl anation Adv Directive/Living Will/POA 11/20/2015 5:54 PM Adv Directive/Living Will/POA 08/05/2015 9:04 PM * Full Code (Latest Code Status on File) Date Activated Date Inactivated Comments 11/16/2015 2:15 PM 11/17/2015 2:17 PM * Full Code Date Activated Date Inactivated Comments 07/26/2015 1:39 AM 08/02/2015 3:53 PM * Full Code Date Activated Date Inactivated Comments 07/23/2015 7:17 AM 07/26/2015 1:39 AM * Full Code Date Activated Date Inactivated Comments 05/10/2015 10:02 AM 05/12/2015 1:36 PM * FULL RESUSCITATION Date Activated Date Inactivated Comments 05/06/2012 12:10 PM 05/08/2012 1:39 PM Care Teams Jet Handler Relationship Specialty Start Date End Date Koko Sol DO [address] [place] [address] PCP - General Internal Medicine 02/11/24 Arina Dobbins, RN Adoption Services Manager 05/11/15
--- OUTSIDE RECORDS SUMMARY | 2025-01-27 01:02 | XMS_ITS | Clinical Summary ---
Author Organization [facility] 2 Address [address] [facility] [place] [address] Care Team Providers Care Customer Program Specialist Name Role Phone Migdalia Pfeiffer MD Primary Care Provider [phone] Allergies Active Allergy Reactions Criticality Noted Date [...] mcg by mouth 3 Active sodium chloride (Mclean Nasal) 0.65 % nasal spray Administer into [...] 2015, followed by Neurosurgery, Dr. Lopez at [facility], with residual right arm weakness. This was thought to be secondary to MSSA bacteremia. Bacterial endocarditis 02/09/2018 Overview (02/09/2018): Mitral valve endocarditis, MSSA bacteremia in July 2015, followed by Cardiology, Dr. Ponce at [facility]. 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 Hurst at [facility]. Thrombocytopenia 04/04/2017 Gallstone pancreatitis 10/18/2015 Obesity 05/29/2015 Non-pressure ulcer of lower extremity 05/22/2015 DM (diabetes mellitus) type II, controlled, with peripheral vascular disorder 05/08/2012 Overview (02/09/2018): Overview: IMO update 11 09 2017 Assessment & Plan (01/16/2025 10:28 PM CDT): ADA Risk Category 2 (Moderate): Peripheral arterial disease +/- loss of protective sensation. 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 Encounters Date Type Department Care Team Description 01/17/2025 11:30 AM CDT Office Visit [facility] Floor 1, [address] [place] [address] Tito Costello MD Preop cardiovascular exam (Primary Dx); Essential hypertension; Orthostasis; Atypical chest pain 01/12/2025 11:30 AM CDT [facility] [address] [facility] 4th Floor [address] [place] [phone] Julius Jarrett DPM Follow-up exam [Z09] (Primary Dx); DM (diabetes mellitus) type II, controlled, with peripheral vascular disorder (HCC) [E11.51] 01/04/2025 12:30 PM CDT Lab [facility] Endocrinology Metabolism and Lipid [address] [facility] 5th [place] [address] [place] [address] Seronegative rheumatoid arthritis (HCC); High risk medication use 01/04/2025 10:49 AM CDT - 01/04/2025 11:59 PM CDT Hospital Encounter [facility] [address] [place] [address] Seronegative rheumatoid arthritis (HCC); High risk medication use Discharge Disposition: Discharge to home or self care 01/04/2025 9:40 AM CDT Office Visit [facility] Rheumatology [address] [facility] 5th [place] [address] [place] [address] Cristina Hernandez MD High risk medication use (Primary Dx); Seronegative rheumatoid arthritis (HCC); Paresthesia of left upper extremity; Paresthesia of right upper extremity 12/14/2024 11:00 AM CDT Ancillary Procedure [facility] Vascular Lab at [facility] [address] [facility] 8th [place] [address] [place] [address] Type II diabetes mellitus with peripheral circulatory disorder (HCC) 12/01/2024 11:00 AM CDT Office Visit [facility] Neuro Sleep [address] [facility] 6th Floor [address] [place] [address] Rafi Horvath MD KANA on CPAP (Primary Dx); Hypersomnia 12/01/2024 Telephone [facility] Sleep [address] [facility] 6th [address] [place] [id number] Joslyn Sheth MA DME from Last 3 Months Immunizations Immunization Administration Dates Next Due Influenza, [...] Pcv20 11/26/2022 Td, adsorbed 11/26/2022 Tdap 06/15/2010 Surgical History Surgery Date Site/Laterality Comments CHOLECYSTECTOMY POSTERIOR LAMINECTOMY / DECO MPRESSION CERVICAL SPINE 08/11/2014 - 08/10/2015 Medical History Medical History Date Comments Crohn disease (HCC) 1999 diet restric tion, no medications needed Depression with anxiety 2015 High cholesterol 2011 Jaundice 1971 Kidney stone 1994 History of sinus problem 1960 Asthma Diabetes (HCC) 1994 Colitis 2007 Chronic bronchitis (HCC) 1965 Cataracts, both eyes 2019 Eye inflammation 2020 Parkinson's disease (HCC) 2019 Thrombocytopenia 1991 Family History Medical History Relation Name Comments Cancer Mother Relation Name Status Comments Mother Social History Tobacco Use Types Packs/Day [...] on file 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 Gender Identity Not on file Sexual Orientation Not on file Obstetrics History Last Filed Vital Signs Vital Sign Reading Time Taken Comments Blood Pressure 133/75 01/17/2025 11:13 AM CDT Pulse 77 01/04/2025 9:28 AM CDT Temperature 36.3 C (97.4 F) 01/04/2025 9:28 AM CDT Respiratory Rate 20 10/13/2024 9:30 AM HOTEL CLERK Oxygen Saturation 96% 12/01/2024 10:49 AM CDT Inhaled Oxygen Concentration - - Weight 100.2 kg (221 lb) 01/17/2025 11:13 AM CDT Height 182.9 cm (6') 01/17/2025 11:13 AM CDT Body Mass Index 29.97 01/17/2025 11:13 AM CDT Plan of Treatment Health Maintenance Due Date Last Done Comments Albumin Creatinine Ratio, Urine 1955 Colon Cancer Screening-Colonoscopy 1955 Depression Screening 1955 Fall Risk Assessment 1955 Dilated Eye Exam 1955 Foot Exam 1955 Hepatitis B Screening 1971 Abdominal Aortic Aneurysm (A AA) Screen 2018 07/23/2015, 05/26/2012 Well Visit 65+ 2018 Hemoglobin A1C 10/19/2019 04/20/2019 Lipid Panel 10/15/2023 10/14/2022, 04/20/2019 Covid-19 Vaccine ( - 2023-2 5 season) 2024 04/27/2021, 10/26/2020, 10/05/2020 eGFR 01/04/2026 01/04/2025, 08/11, 04/21/2024, Additional history exists DTaP/Tdap/Td Vaccine (4 - Td or Tdap) 07/07/2034 07/07/2024, 11/26/2022, 06/15/2010 Hepatitis C Screening Completed 01/02/2021 Pneumococcal vaccine 65+ Completed 11/26/2022 Influenza Vaccine Completed 03/11/2024, , 05/10/2020, Additional history exists Zoster Vaccine Completed 09/10/2024, 07/07/2024 Procedures Procedure Name Priority Date/Time Associated Diagnosis [...] (HCC) LIPID PANEL Routine 10/14/2022 12:38 PM HOTEL CLERK Chest pain, unspecified type High risk medication use HEPATITIS PANEL, ACUTE Routine 01/02/2021 10:32 AM CDT Thrombocytopenia Arthralgia, unspecified joint HEMOGLOBIN A1C Routine 04/20/2019 12:26 PM CDT from Last 3 Months or Most Recently Relevant to Health Maintenance Results * (ABNORMAL) Urinalysis reflex to microscopic and culture Urine, clean voided (01/04/2025 10:49 AM CDT) Color, ur Yellow Yellow Clarity, ur Clear Clear [facility] Specific gravity, ur >1.042(H) 1.003 - 1.030 [facility] pH, urine 6.0 [facility] Comment: Interpretive Data U rine pH is affected by diet, medications, systemic acid-base disturbances, and renal tubular function. pH may affect urinary stone formation. For example, urine pH below 6.0 may help reduce the tendency for calcium phosphate stones and pH greater than 6.0 may reduce the tendency for uric acid stone formation. Source: [facility] Current Interpretive Data was last revised on 2017 Protein, ur ql Negative Negative [facility] Glucose, ur ql 4+(A) Negative [facility] Ketones, ur Negative Negative [facility] Bilirubin, ur Negative Negative [facility] Blood, ur Negative Negative [facility] Urobilinogen, ur <2.0 <2.0 mg/dL [facility] Nitrite, ur Negative Negative [facility] Leukocyte esterase, ur Negative Negative [facility] UA reflex comment Reflex conditions for microscopic UA and culture not met. [facility] Urine, clean voided 01/04/2025 10:49 AM CDT 01/04/2025 2:00 PM CDT us Cristina Hernandez MD LAB MICROBIOLOGY - GENERAL ORDER RAYMOND Final Result [facility] Department [place] [address] * (ABNORMAL) CBC with auto differential (01/04/2025 [...] IM CORE [facility] * Protein / creatinine ratio, urine, random (01/04/2025 10:49 AM CDT) Protein, ur, quant 6.5 mg/dL Comment: Interpretive Data No reference range established. Current interpretive data was last revised 2018. Creatinine Ur 46.2 mg/dL [facility] Comment: Interpretive Data No reference range established. Current interpretive data was last revised 2018. Protein/creatinin e ratio 140.7 0.0 - 180.0 mg/g CR [facility] Urine 01/04/2025 10:4 9 AM CDT 01/04/2025 2:00 PM CDT Cristina Hernandez MD LAB URINE ORDERABLES Final Resul t [facility] Department [place] [address] * (ABNORMAL) Erythrocyte sedimentation rate (01/04/2025 10:49 AM CDT) Erythrocyte Sedimentation Rate 20(H) <20 mm/hr [facility] Blood 01/04/2025 10:4 9 AM CDT 01/04/2025 11:08 AM CDT Cristina Hernandez MD LAB BLOOD ORDERABLES Final Resul t Performing Organization Address City/[facility] Co de Phone Number [facility] CORE [facility] * CRP (acute phase) (01/04/2025 10:49 AM CDT) C-Reactive Protein, Acute <3.0 <5.0 mg/L [facility] Blood 01/04/2025 10:4 9 AM CDT 01/04/2025 11:08 AM CDT Cristina Hernandez MD LAB BLOOD ORDERABLES Final Resul t Performing Organization Address City/[facility]/ZIP Co de Phone Number [facility] * (ABNORMAL) [...] AM CDT Narrative 12/14/2024 10:01 PM CDT [facility] - Department of Vascular Surgery, Vascular Laboratory [address] [place] [address] Lower Extremity Arterial Doppler Report Patient Name: REKHA MONROE : 1955 Study Date: 12/14/2024 10:42:00 AM Gender: M Tech: Shonna Worley Location: [facility] Provider: JULIUS JARRETT Quality: Adequate [...] mmHg Lt Brachial Pressure 129 mmHg Rt SALES ADVISOR Pressure 146 mmHg Lt SALES ADVISOR Pressure 144 mmHg Rt DPA Pressure 145 mmHg Lt DPA Pressure 136 mmHg Rt 1st Digit Pressure 180 mmHg Lt 1st Digit Pressure 144 mmHg Rt PT PRECIOUS Resting 1.13 Lt PT PRECIOUS Resting 1.12 Rt AT PRECIOUS Resting 1.12 Lt AT PRECIOUS Resting 1.05 Rt Digit/Arm Index 1.4 Lt Digit/Arm Index 1.12 Right Value Units Left Value Units FINDINGS: Performing Health Worker: Shonna Worley RVT, [place]. [employer] student Ashley Moctezuma. Right All Levels: The [...] Procedure Note Rashad Alba MD - 12/14/2024 [facility] - Department of Vascular Surgery,Vascular Laboratory [address] [place] [address] Lower Extremity Arterial Doppler Report Patient Name: REKHA MONROE : 1955 Study Date: 12/14/2024 10:42:00 AM Gender: M Tech: Shonna Worley Location: [facility] Ref Provider: JULIUS AJRRETT Quality: Adequate Order Provider: JULIUS JARRETT PROCEDURES: [...] mmHg Lt Brachial Pressure 129 mmHg Rt SALES ADVISOR Pressure 146 mmHg Lt SALES ADVISOR Pressure 144 mmHg Rt DPA Pressure 145 mmHg Lt DPA Pressure 136 mmHg Rt 1st Digit Pressure 180 mmHg Lt 1st Digit Pressure 144 mmHg Rt PT PRECIOUS Resting 1.13 Lt PT PRECIOUS Resting 1.12 Rt AT PRECIOUS Resting 1.12 Lt AT PRECIOUS Resting 1.05 Rt Digit/Arm Index 1.4 Lt Digit/Arm Index 1.12 Right Value Units Left Value Units FINDINGS: Performing Health Worker: Shonna Worley RVT, [place]. [employer] student Ashley Moctezuma. Right All Levels: The [...] esult * Lipid panel (10/14/2022 12:38 PM HOTEL CLERK) Cholesterol 140 30 - 199 mg/dL [facility] Comment: Interpretive Data Ages < or = [...] on 2018. Triglycerides 102 <=149 mg/dL [facility] Comment: Interpretive Data Ages < or = [...] revised on 2018. HDL 59 >=40 mg/dL [facility] Comment: Interpretive Data Ages < or = [...] on 2018. LDL, calculated 61 <=129 mg/dL [facility] Comment: Interpretive Data Ages < or = [...] revised on 2018. Non-HDL Cholesterol 81 mg/dL [facility] Comment: Interpretive Data Ages < or = [...] last revised on 2018. Chol/HDL ratio 2 [facility] Blood 10/14/2022 12:3 8 PM HOTEL CLERK 10/14/2022 12:54 PM HOTEL CLERK us Tito Costello MD LAB BLOOD ORDERABLES Final Result Performing Organization Address [facility]/ZIP Co de Phone Number [facility] Department [place] [address] * Hepatitis panel, acute (01/02/2021 10:32 AM CDT) [facility] Hep A IgM Nonreactive Nonreactive [facility] Comment: Interpretive Data: If Hep A IgM Ab is reported as Equivocal, a new sample should be drawn in two weeks for testing. Current interpretive data was last revised on 19. Hep B core IgM Nonreactive Nonreactive [facility] Comment: Interpretive Data If HepB Core IgM Ab is reported as Equivocal, a new sample should be drawn in two weeks for testing. Current interpretive data was last revised on 19. Hep C Ab Nonreactive Nonreactive [facility] Comment:Antibodies to HCV no t detected. Does NOT exclude the possibility of recent exposure to HCV. HepBsAg Nonreactive Nonreactive [facility] Blood specimen (specimen) 01/02/2021 10:32 AM CDT 01/02/2021 12:37 PM CDT Cristina Hernandez MD LAB MICROBIOLOGY - GENERAL ORDER RAYMOND Edited Result - Final Performing Organization Address [facility] Co de Phone Number [facility] Department [place] [address] * (ABNORMAL) Hemoglobin A1c (04/20/2019 12:26 PM CDT) [facility] Hgb A1C 6.1(H) 4.0 - 5.6 % [facility] Estimated Average Glucose 128 mg/dL [facility] Comment: The ADA recommends reporting an estimated Average Glucose (eAG) with all Hemoglobin A1c results using the equation derived from a study of 507 normal and diabetic adults. Minority populations were underrepresented and children were not included. (Diabetes Care 31:8471-6465, 2008). The eAG is not equivalent to a fasting glucose. Blood specimen (specimen) 04/20/2019 12:26 PM CDT 04/20/2019 12:50 PM CDT Tito Costello MD LAB BLOOD ORDERABLES Final Result Performing Organization Address City/State/[facility] Co ga Phone Number [facility] [address] [place] [address] from Last 3 Months or Most Recently Relevant to Health Maintenance Insurance Exo MEDICARE MEDICARE [facility] CLAIMS FOR LIFE MEDICARE FOR LIFE Care Teams Customer Program Specialist Relationship Specialty Start Date End Date Migdalia Pfeiffer MD [address] [place] [address] PCP - General Internal Medicine 12/01/24
--- OUTSIDE RECORDS SUMMARY | 2025-01-27 01:02 | XMS_ITS | Encounter Summary ---
Author Organization [facility] Address [address] [place] [address] Phone Care Team Providers Care Paralegal Supervisor Name Role Phone Maria E [facility] Primary Care Provider [phone] Koko Sol DO Primary Care Provider [phone] Migdalia Pfeiffer MD Primary Care Provider [phone] Encounter Details Date Type Department Care Team (Latest Contact Info) Description 11/02/2020 Orders Only [facility] Scanning, Provider Social History Tobacco Use Types Packs/Day Years Used Date Smoking Tobacco: Former Smokeless Tobacco: Never Alcohol Use Standard Drinks/Week Comments Yes 1 (1 standard drink = 0.6 oz pur e alcohol) Sex and Gender Information Value Date Recorded Sex Assigned at Not on file 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 Gender Identity Not on file Sexual Orientation Not on file documented as of this encounter Plan of Treatment Not on file documented as of this encounter Procedures Procedure Name Priority Date/Time Associated Diagnosis Comments SCAN - LABS 11/02/2020 documented in this encounter Results * SCAN - LABS (11/02/2020) us Provider Scanning Edited Result - Final documented in this encounter Visit Diagnoses Not on filedocumented in this encounter Additional Health Concerns Infection Onset Date Last Indicated Resolved Time COVID: Suspected 11/03/2021 11/03/2021 11/03/2021 5:02 PM CDT documented as of this encounter Care Teams Paralegal Supervisor Relationship Specialty Start Date End Date [facility], [facility] [address] [place] [address] PCP - General 04/20/19 05/12/23 Koko Sol DO [address] [place] [address] PCP - General Internal Medicine 05/13/23 11/30/24 Migdalia Pfeiffer MD [address] [place] [address] [place] [address] PCP - General Internal Medicine 12/01/24 documented as of this encounter
--- NOTE | 2025-01-27 01:06 | ECG_ITS ---
Test Date: 2025-01-27 01:11:10 Measurements Intervals [place] Rate: 86 P: 20 MD: 146 QRS: 14 QRSD: 149 T: 16 QT: 453 QTc: 544 Interpretive Statements SINUS RHYTHM RIGHT BUNDLE BRANCH BLOCK MINIMAL Q WAVES- HIGH LATERAL LEADS ABNORMAL ECG No previous ECG available for comparison Electronically Signed On 01-27-2025 07:24:58 CDT by Brock Sweet D.O.
[2025-01-27 01:27] LABS: Basophils Percent Auto 0.2 % (0.2-1.2); Eosinophils Absolute Auto 0.2 K/mm3 (0-0.3); Eosinophils Percent Auto 4.1 % (0-4.4); Hematocrit 43.2 % (42.0-52.0); Hemoglobin 14.3 g/dL (14.0-18.0); Immature Granulocyte Absolute 0.02 K/mm3 (0.00-0.031); Immature Granulocyte Percent A 0.4 % (0-0.5); Immature Platelet Fraction Pct 2.9 % (0.9-11.2); Lymphocytes Absolute Auto 1.39 K/mm3 (0.9-3.2); Lymphocytes Percent Auto 25.7 % (18.3-44.2); Mean Corpuscular HGB Conc 33.1 g/dl (32-36); Mean Corpuscular Hemoglobin 31.3 pg (26-34); Mean Corpuscular Volume 94.5 fl (80-100); Mean Platelet Volume 10.1 fl (7.4-10.4); Monocytes Absolute Auto 0.8 K/mm3 (0.1-0.6); Monocytes Percent Auto 14.3 % (2.6-8.5); Neutrophils Percent Auto 55.3 % (45.5-73.1); Platelet Count Result 89 k/mm3 (150-375); Red Blood Count 4.57 M/mm3 (4.6-6.20); Red Cell Distribution Width 15.2 % (11.5-14.5); White Blood Count 5.4 K/mm3 (4.5-10.0)
[2025-01-27 01:33] LABS: Alanine Aminotransferase 13 U/L (6-50); Albumin Level 3.8 g/dL (3.5-5.1); Alkaline Phosphatase 196 U/L (38-126); Anion Gap 6 mmol/L (4-12); Aspartate Amino Transferase 48 U/L (17-59); Bilirubin,Total 2.1 mg/dL (0.2-1.3); Blood Urea Nitrogen 16 mg/dL (9-20); Calcium 9.7 mg/dL (8.4-10.2); Carbon Dioxide 30 mmol/L (22-30); Chloride 103 mmol/L (98-107); Estimated CRCL calculation 112 ml/min; Estimated Glomerular Filt Rate > 60; Glucose 151 mg/dL (65-110); Lipase 1974 U/L (23-300); Potassium 4.4 mmol/L (3.4-5.0); Sodium 139 mmol/L (137-145); Total Protein 7.5 g/dL (6.3-8.2)
[2025-01-27 01:42] LABS: INR 1.2; Prothrombin Time 14.9 Seconds (11.1-14.7)
[2025-01-27 01:43] LABS: Partial Thromboplastin Time 33.1 Seconds (22.3-36.8)
[2025-01-27 01:51] LABS: Troponin I < 0.012 ng/mL (0.000-0.034)
--- OUTSIDE RECORDS SUMMARY | 2025-01-27 04:44 | XMS_ITS | Encounter Summary ---
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 Gender Identity Not on file Sexual Orientation Not on file 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 Job End Date 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 Not on file Not on file Not on file 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 on file Not on file Not [...] 11:00 AM CDT Office Visit [facility] [address] [facility] [address] [place] [phone] [place] [address] [id number] documented as of this encounter Visit Diagnoses Not on filedocumented in this encounter Care Teams Belt Weaver Relationship Specialty Start Date End Date John Samuels MD [facility] [address] [place] [phone] PCP - General Internal Medicine 05/11/15 06/29/20 Rianna Ambriz DO PCP - General Student Resident 06/30/20 06/30/20 John Samuels MD [facility] [address] [place] [phone] PCP - General 07/01/20 02/21/21 Rianna Ambriz DO PCP - General Student Resident 02/22/21 03/13/21 Koko Sol DO [address] [place] [address] PCP - General Internal Medicine 02/11/24 Arina Dobbins, RN Paleology Professor 05/11/15 documented as of this encounter
--- OUTSIDE RECORDS SUMMARY | 2025-01-27 04:44 | XMS_ITS | Clinical Summary ---
Author Organization [facility] Address [address] [place] [address] Care Team Providers Care Cot Assembler Name Role Phone Migdalia Pfeiffer MD Primary Care Provider [phone] Allergies Active Allergy Reactions Criticality Noted Date Comments Ibuprofen Other (see comment) 01/11/2025 History of GI bleeds Ketorolac Other (see comment),Unknown Low 07/22/2015 Platelet count decreased Platelet count decreased causes platelet count to decrease Platelet count decreased causes platelet count to decrease causes platelet count to decrease Ketorolac Tromethamine Other (see comment) 10/2024 Acetaminophen Other (see comment) 01/11/2025 liver Medications vibegron (GEMTESA) 75 MG tablet Take 1 tablet (75 mg total) by mouth daily. 4 Active traMADol (ULTRAM) 50 MG tablet Take 1 tablet (50 mg total) by mouth every 6 (six) hours as needed. 4 Active saccharomyces boulardii (FLORASTOR) 250 MG capsule Take 1 capsule (250 mg total) by mouth 2 (two) times daily. Active rosuvastatin (CRESTOR) 5 MG tablet Take 1 tablet (5 mg total) by mouth nightly at bedtime. 4 Active metFORMIN (GLUCOPHAGE) 1000 MG tablet Take 750 mg by mouth daily with breakfast. 4 Active memantine (NAMENDA) 5 MG tablet Take 1 tablet (5 mg total) by mouth 2 (two) times daily. 4 Active fluticasone propionate (FLONASE) 50 MCG/ACT nasal spray 1 spray by Nasal route daily. Active HORIZANT 600 MG Tab CR Take 600 mg by mouth daily. At 5pm daily 4 Active finasteride (PROSCAR) 5 MG tablet Take 1 tablet (5 mg total) by mouth daily. Active JARDIANCE 10 MG tablet Take 1 tablet (10 mg total) by mouth daily. 4 Active DULoxetine (CYMBALTA) 60 MG capsule Take 1 capsule (60 mg total) by mouth daily. Active DULoxetine (CYMBALTA) 30 MG capsule Take 1 capsule (30 mg total) by mouth daily. 4 Active Semaglutide (OZEMPIC, 1 MG/DOSE, SC) Taken on Friday Active Golimumab (SIMPONI SC) Inject into the skin once a week. Active donepezil (ARICEPT) 10 MG Tab Take 1 tablet (10 mg total) by mouth 2 (two) times daily. 4 Active cetirizine (ZYRTEC) 10 MG tablet Take 1 tablet (10 mg total) by mouth daily. 4 Active carbidopa-levod opa (SINEMET) 25-100 MG tablet Take 1 tablet by mouth 4 (four) times daily. 4 Active albuterol sulfate HFA 108 (90 Base) MCG/ACT inhaler Inhale 2 puffs into the lungs every 4 (four) hours as needed for Shortness of breath or Wheezing. 4 Active traZODone (DESYREL) 100 MG tablet Take 1 tablet (100 mg total) by mouth nightly at bedtime. 4 01/13/20 25 predniSONE (DELTASONE) 5 mg tablet Take 1 tablet (5 mg total) by mouth daily. 4 01/21/20 25 escitalopram (LEXAPRO) 20 MG tablet Take 1 tablet (20 mg total) by mouth daily. 4 01/13/20 25 phenazopyridine (PYRIDIUM) 100 MG tablet Take 1 tablet (100 mg total) by mouth 3 (three) times daily as needed for Pain. 9 tablet 5 01/22/20 25 Active Problems Problem Noted Date Diagnosed Date Hypervascular lesion of urinary bladder 01/19/20 25 Encounters Date Type Department Care Team Description 01/18/2025 8:01 AM CDT Anesthesia [place] [address] Arturo Lindsay MD Jarvis, Brittany L, JESSA 01/18/2025 7:30 AM CDT - 01/18/2025 8:[address] [facility] [place] [address] Rekha Santiago MD CYSTOSCOPY WITH BLADDER BIOPSY AND FULGURATION 01/18/2025 5:42 AM CDT - 01/18/2025 10:30 AM CDT Hospital Encounter [facility] [place] [address] Rekha Santiago MD Discharge Disposition: Home or Self Care (Routine Discharge) 01/18/2025 Travel 01/18/[address] [facility] [place] [address] Rekha Santiago MD 01/12/2025 2:35 PM CDT - 01/12/2025 11:59 PM CDT [facility] [place] [address] Rekha Santiago MD Discharge Disposition: Home or Self Care (Routine Discharge) 01/12/2025 Travel 01/11/2025 Travel from Last 3 Months Social History Tobacco Use Types Packs/Day Years Used Date Smoking Tobacco: Former Cigarettes Smokeless Tobacco: Never Tobacco Cessation:Counseling Given: Not Answered Comments:Quit smoking 40 years ago Alcohol Use Standard Drinks/Week Comments Yes 0 (1 standard drink = 0.6 oz pure alcohol) rare for birthdays might have a dominga Sex and Gender Information Value Date Recorded Sex Assigned at Male 01/12/2025 2:29 PM CDT Legal Sex 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 Gender Identity Not on file Sexual Orientation Not on file Last Filed Vital Signs Vital Sign Reading Time Taken Comments Blood Pressure 120/62 01/18/2025 10:25 AM CDT Pulse 90 01/18/2025 10:25 AM CDT Temperature 36.1 C (97 F) 01/18/2025 10:25 AM CDT Respiratory Rate 16 01/18/2025 10:2 5 AM CDT Oxygen Saturation 95% 01/18/2025 10: 25 AM CDT Inhaled Oxygen Concentration - - Weight 100.8 kg (222 lb 3.6 oz) 01/18/2025 6:30 AM CDT Height 182.9 cm (6') 01/11/2025 11:50 AM CDT Body Mass Index 30.14 01/11/2025 11:50 AM CDT Plan of Treatment Health Maintenance Due Date Last Done Comments Colorectal Cancer Screening Colonoscopy (10 Years) 1955 Annual Medicare Wellness Visit 2018 COVID-19 Vaccine ( season) 2024 04/21/2024, 05/26/2023, 02/21/2022, Additional history exists RSV Immunization or 60+ Years (1 - 1-dose 75+ series) 01/08/2028 DTaP, Tdap and Td Vaccines (4 - Td or Tdap) 07/07/2034 07/07/2024, 11/26/2022, 06/15/2010 Hepatitis C Completed 07/24/2015 AAA SCREENING Completed 03/13/2021, 0810/2020, 07/23/2015, Additional history exists Pneumococcal Vaccine: 50+ Years Completed 11/26/2022 Zoster Vaccines Completed 09/10/2024, 07/07/2024 Meningococcal B Vaccine Aged Out No l onger eligible based on patient's age to complete this topic Meningococcal Vaccine Aged Out No francy ariel eligible based on patient's age to complete this topic RSV Immunizations Under 20 Months Aged Out No longer eligible based on patient's age to complete this topic Procedures Procedure Name Priority Date/Time Associated Diagnosis Comments POCT GLUCOSE - DOCKED DEVICE Routine 01/18/2025 8:45 AM CDT CYSTOURETHROSCOPY,GENIE MORALES 01/18/2025 8:01 AM CDT GROSS HEMATURIA; FREQUENCY OF MICTURITION; LESION OF BLADDER R31.0; N28.89; N40.1 Case Notes SCHED BY FAX ON 12/17/24 [facility] PHONE ASSESS CYSTOURETHROSCOPY,BIO PSY 01/18/2025 8:01 AM CDT GROSS HEMATURIA; FREQUENCY OF MICTURITION; LESION OF BLADDER R31.0; N28.89; N40.1 Case Notes SCHED BY FAX ON 12/17/24 [facility] PHONE ASSESS PROCEDURE GENERIC 01/18/2025 7:1 0 AM CDT ECG 12-LEAD Routine 01/18/2025 6:47 AM CDT POCT GLUCOSE - DOCKED DEVICE Routine 01/18/2025 6:43 AM CDT PATHOLOGY Routine 01/18/2025 12:00 AM CDT BASIC METABOLIC PANEL Routine 01/12/2025 2:49 PM CDT Gross hematuria Frequency of micturition Lesion of bladder URINE BACTERIA CULTURE Routine 01/12/2025 2:47 PM CDT Gross hematuria Frequency of micturition Lesion of bladder HC URINALYSIS AUTO W/O MICRO Routine 01/12/2025 2:47 PM CDT Gross hematuria Frequency of micturition Lesion of bladder PARTIAL THROMBOPLASTIN TIME,PTT Routine 01/12/2025 2:41 PM CDT Gross hematuria Frequency of micturition Lesion of bladder PROTHROMBIN TIME, VENOUS Routine 01/12/2025 2:41 PM CDT Gross hematuria Frequency of micturition Lesion of bladder CBC W/DIFF AUTOMATED Routine 01/12/2025 2:41 PM CDT Gross hematuria Frequency of micturition Lesion of bladder from Last 3 Months Results * (ABNORMAL) POCT glucose (01/18/2025 8:45 AM CDT) Only the most recent of2 resultswithin the time period is included. 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1955 Requested By: ARTURO LINDSAY Order Number: [id number] Reading MD: Markell Long Measurements Intervals [place] Rate: 76 P: 26 OK: 156 QRS: 19 QRSD: 154 T: 19 QT: 462 QTc: 520 Interpretive Statements SINUS RHYTHM RIGHT BUNDLE BRANCH BLOCK [120+ ms QRS DURATION, UPRIGHT V1, 40+ ms S IN I/aVL/V4/V5/V6] No previous ECG available for comparison Procedure Note Markell Long MD - 01/18/[address] Test Date: 2025-01-18 Pat Name: REKHA PLATA Department: 40 Room: O[facility] Gender: Male 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: : 1955 Requested By: ARTURO LINDSAY Order Number: [id number] Reading MD: Markell Long Measurements Intervals [place] Rate: 76 P: 26 OK: 156 QRS: 19 QRSD: 154 T: 19 QT: 462 QTc: 520 Interpretive Statements SINUS RHYTHM RIGHT BUNDLE BRANCH BLOCK [120+ ms QRS DURATION, UPRIGHT V1, 40+ ms SIN I/aVL/V4/V5/V6] No previous ECG available for comparison us Arturo Lindsay MD ECG ORDERABLES Final Result [facility] ([facility]) RAD * Pathology (01/18/2025 12:00 AM CDT) PATHOLOGY [facility] Department of Laboratory Medicine [address] [place] [address] , extension [phone] Pathology Report Surgical Pathology Report Name: REKHA PLATA Specimen #: [id number] Age: 5 1955 (Age: 70) Location: [facility] Sex: M Procedure Date: 01/18/2025 Hospital #: [id number] Date Received: 01/18/2025 Date Reported: 01/19/2025 Provider: REKHA SANTIAGO MD Source: Bladder, biopsy Clinical History: Gross hematuria, frequency of micturition, and lesion of bladder. FINAL DIAGNOSIS: Urinary bladder, biopsy: - Chronic cystitis with reactive urothelial changes. - No evidence of malignancy. Gross Description: Received in formalin, labeled with a patient label and as bladder biopsy is a 0.1 cm piece of delicate pink-palmer tissue. The specimen is entirely submitted in cassette 1. Gross examination (when applicable), interpretation, and sign out were performed at [facility], [address] [place] [address]. Electronically Signed Out GENESIS TOMPKINS MD [facility] TISSUE URINARY BLADDER STRUCTURE / Unknown 01/18/2025 7:08 AM CDT us Rekha Santiago MD PATHOLOGY/CYTOLOGY ORDERA BLES Final Result [facility] [address] [place] [address], [id number] * (ABNORMAL) BASIC METABOLIC PANEL (01/12/2025 2:49 PM CDT) GLUCOSE 178(H) 70 - 99 MG/DL 01/12/2025 3:54 PM CDT [facility] BUN 12 7 - 18 MG/DL 01/12/2025 3:54 PM CDT [facility] CREATININE S/P/B 0.72 0.7 - 1.3 MG/DL 01/12/2025 3:54 PM CDT [facility] SODIUM S/P/B 140 136 - 145 MMOL/L 01/12/2025 3:54 PM CDT [facility] POTASSIUM S/P/B 3.6 3.5 - 5.1 MMOL/L 01/12/2025 3:54 PM CDT [facility] CHLORIDE S/P/B 106 97 - 115 MMOL/L 01/12/2025 3:54 PM CDT [facility] CO2 26.4 21 - 32 MMOL/L 01/12/2025 3:54 PM CDT [facility] CALCIUM S/P/B 9.6 8.5 - 10.1 MG/DL 01/12/2025 3:54 PM CDT [facility] ANION GAP 7.6 2 - 10 MMOL/L 01/12/2025 3:54 PM CDT [facility] BUN CREATININE RATIO 16.7 6 - 26 01/12/2025 3:54 PM CDT [facility] GFR ESTIMATE >90 >90 ML/MIN/1.7 3 M2 01/12/2025 3:54 PM CDT [facility] Comment: NOTE: eGFR is not calculated for patients <18 years of age or gender unknown. This is an estimated GFR calculation using the new CKD EPI creatinine equation without race and so does not require a correction factor for race. This estimated GFR should not be used for calculating drug doses. 01/12/2025 2:49 PM CDT us Rekha Santiago MD LABORATORY Final Res ult [facility] [address] [place] [id number], * (ABNORMAL) URINALYSIS (01/12/2025 2:47 PM CDT) SPECIMEN TYPE URINE CLEAN CATCH 01/12/2025 2:47 PM CDT [facility] COLOR (U) LIGHT YELLOW 01/12/2025 4:48 PM CDT [facility] TRANSPARENCY CLEAR 01/12/2025 4:48 PM CDT [facility] SPECIFIC GRAVITY (U) 1.042(H) 1.001 - 1.030 01/12/2025 4:48 PM CDT [facility] U PH 6.0 5.0 - 9.0 01/12/2025 4:48 PM CDT [facility] LEUKOCYTES (U) NEGATIVE NEGATIVE 01/12/2025 4:48 PM CDT [facility] NITRITES NEGATIVE NEGATIVE 01/12/2025 4:48 PM CDT [facility] PROTEIN RANDOM (U) NEGATIVE <30 MG/DL 01/12/2025 4:48 PM CDT [facility] GLUCOSE (U) >1000(A) NORMAL MG/DL 01/12/2025 4:48 PM CDT [facility] KETONES MG/DL (U) NEGATIVE NEGATIVE MG/DL 01/12/2025 4:48 PM CDT [facility] UROBILINOGEN NORMAL NORMAL MG/DL 01/12/2025 4:48 PM CDT [facility] BILIRUBIN (U) NEGATIVE NEGATIVE MG/DL 01/12/2025 4:48 PM CDT [facility] BLOOD (U) NEGATIVE NEGATIVE 01/12/2025 4:48 PM CDT [facility] URINE SPECIMEN OBTAINED BY CLEAN CATCH PROCEDURE / Unknown 01/12/2025 2:47 PM CDT Rekha Santiago MD URINE ORDERABLES Final Re sult Performing Organization Address City/[facility] Co de Phone Number [facility] [address] [place] [address], [place] [phone] * URINE BACTERIA CULTURE (01/12/2025 2:47 PM CDT) SPEC DESCRIPTION URINE CLEAN CATCH 01/12/2025 2:47 PM CDT [facility] SPECIAL REQUESTS NO SPECIAL REQUEST 01/12/2025 2:47 PM CDT [facility] CULTURE RESULT NO GROWTH 2 DAYS 01/14/2025 9:11 AM CDT [facility] URINE SPECIMEN OBTAINED BY CLEAN CATCH PROCEDURE / Unknown 01/12/2025 2:47 PM CDT 01/12/2025 2:49 PM CDT Rekha Santiago MD MICROBIOLOGY - GENERAL OR DERABLES Final Result [facility] [address] [place] [address], [place] [phone] * PTT, PARTIAL THROMBOPLASTIN TIME (01/12/2025 2:41 PM CDT) PTT 36.2 25.1 - 36.5 SEC 01/12/2025 4:01 PM CDT [facility] 01/12/2025 2:41 PM CDT Rekha Santiago MD LABORATORY Final Res ult Performing Organization Address [facility] Co de Phone Number [facility] [address] [place] [address], [place] [phone] * (ABNORMAL) PROTIME/INR, VENOUS (01/12/2025 2:41 PM CDT) PROTIME 13.3(H) 10.2 - 12.9 SEC 01/12/2025 4:01 PM CDT [facility] INR 1.2 01/12/2025 4:01 PM CDT [facility] Comment: Recommended INR Therapeutic Goals: 2.0-3.0 Routine Therapy 2.5-3.5 Mechanical Prosthetic Valves (High Risk) 01/12/2025 2:41 PM CDT Rekha Santiago MD LABORATORY Final Res ult Performing Organization Address City/[facility]/ZIP Co de Phone Number [facility] [address] [place] [address], [place] [phone] * (ABNORMAL) CBC W/DIFF AUTOMATED (01/12/2025 2:41 PM CDT) WBC 4.90 4.5 - 11.0 x10'3/uL 01/12/2025 3:40 PM CDT [facility] RBC 4.97 4.70 - 6.10 x10'6/uL 01/12/2025 3:40 PM CDT [facility] HGB 15.5 14.0 - 18.0 G/DL 01/12/2025 3:40 PM CDT [facility] HCT 46.3 43.0 - 54.0 % 01/12/2025 3:40 PM CDT [facility] MCV 93.2 80.0 - 94.0 FL 01/12/2025 3:40 PM CDT [facility] MCH 31.2(H) 27.0 - 31.0 PG 01/12/2025 3:40 PM CDT [facility] MCHC 33.5 32.0 - 36.0 G/DL 01/12/2025 3:40 PM CDT [facility] RDW 15.0(H) 11.5 - 14.5 % 01/12/2025 3:40 PM CDT [facility] PLT 103(L) 130 - 400 x10'3/uL 01/12/2025 3:40 PM CDT [facility] MPV 11.5 9.3 - 12.2 FL 01/12/2025 3:40 PM CDT [facility] DIFFERENTIAL TYPE AUTOMATED DIFFERENTIAL 01/12/2025 3:40 PM CDT [facility] NEUTROPHILS % 49.4 % 01/12/2025 3:40 PM CDT [facility] LYMPHOCYTES % 33.7 % 01/12/2025 3:40 PM CDT [facility] MONOCYTES % 9.8 % 01/12/2025 3:40 PM CDT [facility] EOSINOPHILS 6.3 % 01/12/2025 3:40 PM CDT [facility] BASOPHILS 0.4 % 01/12/2025 3:40 PM CDT [facility] IMMATURE GRANS % 0.4 % 01/13/20 3:40 PM CDT [facility] ABS. NEUTROPHILS 2.42 1.80 - 7.70 x10'3/uL 01/12/2025 3:40 PM CDT [facility] ABS. LYMPHOCYTES 1.65 1.00 - 4.80 x10'3/uL 01/12/2025 3:40 PM CDT [facility] ABS. MONOCYTES 0.48 0.30 - 0.82 x10'3/uL 01/12/2025 3:40 PM CDT [facility] ABS. EOSINOPHILS 0.31 0.04 - 0.54 x10'3/uL 01/12/2025 3:40 PM CDT [facility] ABS. BASOPHILS 0.02 0.01 - 0.08 x10'3/uL 01/12/2025 3:40 PM CDT [facility] ABS. IMMATURE GRANULOCYTES 0.02 0.00 - 0.49 x10'3/uL 01/12/2025 3:40 PM CDT [facility] 01/12/2025 2:41 PM CDT us Rekha Santiago MD LABORATORY Final Res ult [facility] [address] [place] [address], [place] [phone] from Last 3 Months Insurance [facility] MEDICARE Care Teams Cot Assembler Relationship Specialty Start Date End Date Migdalia Pfeiffer MD [address] [place] [address] PCP - General INTERNAL MEDICINE 01/12/25
--- OUTSIDE RECORDS SUMMARY | 2025-01-27 04:44 | XMS_ITS | Encounter Summary ---
Author Organization [facility] Health Address [address] [place] [address] Care Team Providers Care Manager Diabetes Name Role Phone Arina Dobbins RN Unavailable [phone] Koko Sol DO Primary Care Provider [phone] Encounter Details Date Type Department Care Team (Late st Contact Info) Description 01/08/2025 Results Follow-Up [facility] [address] 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 [address] [place] [phone] [place] [address] [address] documented as of this encounter Visit Diagnoses Not on filedocumented in this encounter Care Teams Manager Diabetes Relationship Specialty Start Date End Date Koko Sol DO [address] [place] [id number] PCP - General Internal Medicine 02/11/24 Arina Dobbins RN Criminology Professor 05/11/15 documented as of this encounter
--- OUTSIDE RECORDS SUMMARY | 2025-01-27 04:44 | XMS_ITS | Clinical Summary ---
Author Organization [facility] Address [address] [place] [address] Care Team Providers Care Housing Management Representative Name Role Phone Arina Dobbins RN Unavailable [phone] Koko Sol DO Primary Care Provider [phone] Source Comments [facility],non-owned Affiliates and Associated Physician Practices is amultiple site organization consisting of ambulatory clinics and hospital sitesin [place], [place], [place] and [place]. This disclosure is being madepursuant to the Care Everywhere program and may not contain all information available regarding this patient. Last updated 18.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 Not on file Not on file Last Filed Vital Signs Vital Sign Reading Time Taken Comments Blood Pressure 144/71 04/13/2024 3:31 PM CDT Pulse 101 08/19/2024 10:03 AM SOLDERER Temperature 36.4 C (97.5 F) 04/13/2024 2:42 PM CDT Respiratory Rate 18 08/19/2024 10:03 AM SOLDERER Oxygen Saturation 96% 08/19/2024 10:03 AM SOLDERER Inhaled Oxygen Concentration 40% 07/26/2015 4 :25 AM SOLDERER Weight 103 kg (227 lb) 08/19/2024 10:03 AM SOLDERER Height 182.9 cm (6') 08/19/2024 10:03 AM SOLDERER Body Mass Index 30.79 08/19/2024 10:03 AM SOLDERER Plan of Treatment Upcoming Encounters Date Type Department Care Team (Late st Contact Info) Description 02/17/2025 11:00 AM CDT Office Visit [facility] [address] [facility] [address] [place] [address] [place] [address] [address] Health Maintenance Due Date Last [...] ENDOSCOPY, COLON, DIAGNOSTIC Routine 08/28/2022 7:25 AM SOLDERER Rectal bleeding COMPREHENSIVE METABOLIC PANEL Routine 08/15/2022 12:20 PM SOLDERER Other cirrhosis of liver HEPATITIS C RNA QUANTITATIVE AM Draw 07/24/2015 2:43 AM SOLDERER HEMOGLOBIN A1C Routine 05/11/2015 6:59 AM CDT from Last 3 Months or Most Recently Relevant to Health Maintenance Results * ENDOSCOPY, COLON, DIAGNOSTIC (08/28/2022 7:25 AM SOLDERER) Report Endoscopy POC _ Patient Name: Rekha Sigala Procedure Date: 08/28/2022 7:25 AM Date of : 1955 Admit Type: Outpatient Age: 67 Gender: Male Ethnicity: Not or Race: White Attending MD: Declan Hurst MD _ Procedure: Colonoscopy Indications: Hematochezia Providers: Declan Hurst MD (Doctor), Chanel Ornelas RN, Phyllis Salazar, Reservoir Engineer Patient Profile: 67M presents for eval of rectal bleeding. last exam 4 yrs prior Referring MD: [address] [place] [address] [facility] ([facility]erring [facility] Medicines: Monitored Anesthesia [...] for surveillance. Procedure Code(s): --- Professional --- 44705, Colonoscopy, flexible; diagnostic, including collection of specimen(s) by brushing or washing, when performed (separate procedure) --- Technical --- 10912, Colonoscopy, flexible; diagnostic, including collection of specimen(s) by brushing or washing, when performed (separate procedure) Diagnosis Code(s): --- Professional --- K64.8, Other hemorrhoids K92.1, Melena (includes Hematochezia) --- Technical --- K64.8, Other hemorrhoids K92.1, Melena (includes Hematochezia) CPT copyright 2019 [employer]. All rights reserved. The codes documented in this report are preliminary and upon contact lens molder review may be revised to meet current compliance requirements. Declan Hurst MD 08/28/2022 9:07:58 AM This report has been signed electronically. Number of Addenda: 0 Note Initiated On: 08/28/2022 7:25 AM [facility] ENDOSCOPY 08/28/2022 7:25 AM SOLDERER Narrative Procedure Note Declan Hurst MD - 08/28/2022 9:08 AM CST Colonoscopy Small int hemorrhoids Nl otherwise Psyllium Rpt 5 yrs us Declan Hurst MD GI PROCEDURE ORDERABLES Edited R esult - Final [facility] ENDOSCOPY * (ABNORMAL) COMPREHENSIVE METABOLIC PANEL (08/15/2022 12:20 PM SOLDERER) Glucose 110(H) 65 - 99 mg/dL [facility] [...] 46 U/L [facility] Comment: Test Performed at: [facility] [place] [facility] [address] [place] [address] DEWAYNE SEBASTIAN DO,MPH Blood BLOOD SPECIMEN / Unknown 08/15/2022 12:20 PM SOLDERER 08/15/2022 12:21 PM SOLDERER us Karla Josie PANTRY GOODS MAKER-BUTTON TACKER LAB - CHEMISTRY ORDER RAYMOND Final Result [facility] [address] [place] [address] * HEPATITIS C RNA QUANTITATIVE PCR (07/24/2015 2:43 AM SOLDERER) Hepatitis C Virus RNA Quantitative <15 IU/mL 07/26/2015 8:40 AM [facility] ([facility]) Hepatitis C Virus RNA Log Quantitative <1.2 log IU 07/26/2015 8:40 AM [facility] ([facility]) Comment: INTERPRETIVE INFORMATION: Hepatitis C Virus by [...] Detected Not Detected 07/26/2015 8:40 AM [facility]) EER HCV See Note 07/26/2015 8:40 AM [facility] ([facility]) Comment: To download an enhanced report for this test go to: [email or web address] [email or web address] Blood specimen (specimen) BLOOD SPECIMEN / Unknown Lab Venipuncture / Unknown 07/24/2015 2:43 AM SOLDERER 07/24/2015 3:25 AM SOLDERER Scotty Castillo PANTRY GOODS MAKER-BUTTON TACKER LAB - CHEMISTRY ORDERABLE S Final Result [facility] ([facility]) [address] * HEMOGLOBIN A1C (05/11/2015 6:59 AM CDT) Pathologist [facility] Hemoglobin A1c 6.1 4.2 - 6.3 % 05/11/2015 8:36 AM CDT [facility] Estimated Average Glucose 128 mg/dL 05/11/2015 8:36 AM CDT [facility] Whole Blood BLOOD SPECIMEN WITH EDTA / Unknown Lab Venipuncture / Unknown 05/11/2015 6:59 AM CDT 05/11/2015 7:10 AM CDT Tamiko Mcclain PANTRY GOODS MAKER-BUTTON TACKER LAB - CHEMISTRY ORDERABL ES Final Result Performing Organization Address [facility] de Phone Number [facility] [address] [place] [address] from Last 3 Months or Most Recently Relevant to Health Maintenance Insurance MEDIC[facility] MEDICARE [facility] Advance Directives Documents on File Type Date Recorded Patient Distribution Engineering Technologist Expl anation Adv Directive/Living Will/POA 11/20/2015 5:54 [...] 12:10 PM 05/08/2012 1:39 PM Care Teams Housing Management Representative Relationship Specialty Start Date End Date Koko Sol DO [address] [place] [address] PCP - General Internal Medicine 02/11/24 Arina Dobbins, RN Youth Career Specialist 05/11/15
--- OUTSIDE RECORDS SUMMARY | 2025-01-27 04:44 | XMS_ITS | Clinical Summary ---
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
--- OUTSIDE RECORDS SUMMARY | 2025-01-27 04:44 | XMS_ITS | Encounter Summary ---
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 Gender Identity Not on file Sexual Orientation Not on file 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 Job End Date 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 Not on file Not on file 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 on 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 on file Not on file Not [...] Description 02/17/2025 11:00 AM CDT Office Visit [facility] [address] [facility] [address] [place] [phone] [place] [address] [id number] documented as of this encounter Visit Diagnoses Not on filedocumented in this encounter Care Teams Timber Mill Worker Relationship Specialty Start Date End Date John Samuels MD [facility] [address] [place] [address] PCP - General Internal Medicine 05/11/15 06/29/20 Rianna Ambriz DO PCP - General Student Resident 06/30/20 06/30/20 John Samuels MD [facility] [address] [place] [address] PCP - General 07/01/20 02/21/21 Rianna Ambriz DO PCP - General Student Resident 02/22/21 03/13/21 Koko Sol DO [address] [place] [address] PCP - General Internal Medicine 02/11/24 Arina Dobbins, RN Education Director 05/11/15 documented as of this encounter
--- OUTSIDE RECORDS SUMMARY | 2025-01-27 04:44 | XMS_ITS | Encounter Summary ---
Author Organization [facility] Address [address] [place] [address] Care Team Providers Care Wood Casket Assembler Name Role Phone Migdalia Pfeiffer MD Primary Care Provider [phone] Encounter Details Date Type Department Care Team (Late st Contact Info) Description 01/18/2025 Prep for Procedure [facility] [place], [place] [id number] Erwin Loyola MD [address] [facility] [address] [place], [place] [id number] Social History Tobacco Use Types Packs/Day Years Used Date Smoking Tobacco: Former Cigarettes Smokeless Tobacco: Never Comments:Quit smoking 40 yea rs ago Alcohol Use Standard Drinks/Week Comments Yes 0 (1 standard drink = 0.6 oz pure alcohol) rare for birthdays might have a dominga Sex and Gender Information Value Date Recorded Sex Assigned at Male 01/12/2025 2:29 PM CDT 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 Wish to be (Past 1 Month) No 01/18/2025 7:15 AM CDT Shari Colon RN Active 2. Non-Specific Active Suicidal Thoughts (Past 1 Month) No 01/18/2025 7:15 AM CDT Shari Colon RN Active 6. Suicidal Behavior (Lifetime) No 01/18/2025 7:15 AM CDT Shari Colon RN Active documented as of this encounter Plan of Treatment Not on file documented as of this encounter Results * (ABNORMAL) BASIC METABOLIC PANEL (01/12/2025 2:49 PM CDT) [facility] GLUCOSE 178(H) 70 - 99 MG/DL 01/12/2025 3:54 PM CDT [facility] BUN 12 7 - 18 MG/DL 01/12/2025 3:54 PM CDT [facility] CREATININE S/P/B 0.72 0.7 - 1.3 MG/DL 01/12/2025 3:54 PM CDT [facility] SODIUM S/P/B 140 136 - 145 MMOL/L 01/12/2025 3:54 PM CDT [facility] POTASSIUM S/P/B 3.6 3.5 - 5.1 MMOL/L 01/12/2025 3:54 PM CDT [facility] CHLORIDE S/P/B 106 97 - 115 MMOL/L 01/12/2025 3:54 PM CDT [facility] CO2 26.4 21 - 32 MMOL/L 01/12/2025 3:54 PM CDT [facility] CALCIUM S/P/B 9.6 8.5 - 10.1 MG/DL 01/12/2025 3:54 PM CDT [facility] ANION GAP 7.6 2 - 10 MMOL/L 01/12/2025 3:54 PM CDT [facility] BUN CREATININE RATIO 16.7 6 - 26 01/12/2025 3:54 PM CDT [facility] GFR ESTIMATE >90 >90 ML/MIN/1.7 3 M2 01/12/2025 3:54 PM CDT [facility] Comment: NOTE: eGFR is not calculated for patients <18 years of age or gender unknown. This is an estimated GFR calculation using the new CKD EPI creatinine equation without race and so does not require a correction factor for race. This estimated GFR should not be used for calculating drug doses. 01/12/2025 2:49 PM CDT us Erwin Loyola MD LABORATORY Final Res ult [facility] [address] [place] [address], [place] [phone] * (ABNORMAL) URINALYSIS (01/12/2025 2:47 PM CDT) SPECIMEN TYPE URINE CLEAN CATCH 01/12/2025 2:47 PM CDT [facility] COLOR (U) LIGHT YELLOW 01/12/2025 4:48 PM CDT [facility] TRANSPARENCY CLEAR 01/12/2025 4:48 PM CDT [facility] SPECIFIC GRAVITY (U) 1.042(H) 1.001 - 1.030 01/12/2025 4:48 PM CDT [facility] U PH 6.0 5.0 - 9.0 01/12/2025 4:48 PM CDT [facility] LEUKOCYTES (U) NEGATIVE NEGATIVE 01/12/2025 4:48 PM CDT [facility] NITRITES NEGATIVE NEGATIVE 01/12/2025 4:48 PM CDT [facility] PROTEIN RANDOM (U) NEGATIVE <30 MG/DL 01/12/2025 4:48 PM CDT [facility] GLUCOSE (U) >1000(A) NORMAL MG/DL 01/12/2025 4:48 PM CDT [facility] KETONES MG/DL (U) NEGATIVE NEGATIVE MG/DL 01/12/2025 4:48 PM CDT [facility] UROBILINOGEN NORMAL NORMAL MG/DL 01/12/2025 4:48 PM CDT [facility] BILIRUBIN (U) NEGATIVE NEGATIVE MG/DL 01/12/2025 4:48 PM CDT [facility] BLOOD (U) NEGATIVE NEGATIVE 01/12/2025 4:48 PM CDT [facility] URINE SPECIMEN OBTAINED BY CLEAN CATCH PROCEDURE / Unknown 01/12/2025 2:47 PM CDT us Erwin Loyola MD URINE ORDERABLES Final Re sult Performing Organization Address [facility]/ZIP Co de Phone Number [facility] [address] [place] [address], [place] [phone] * URINE BACTERIA CULTURE (01/12/2025 2:47 PM CDT) SPEC DESCRIPTION URINE CLEAN CATCH 01/12/2025 2:47 PM CDT [facility] SPECIAL REQUESTS NO SPECIAL REQUEST 01/12/2025 2:47 PM CDT [facility] CULTURE RESULT NO GROWTH 2 DAYS 01/14/2025 9:11 AM CDT [facility] URINE SPECIMEN OBTAINED BY CLEAN CATCH PROCEDURE / Unknown 01/12/2025 2:47 PM CDT 01/12/2025 2:49 PM CDT us Erwin Loyola MD MICROBIOLOGY - GENERAL OR DERABLES Final Result [facility] [address] [facility] [place] [address], [place] [phone] * PTT, PARTIAL THROMBOPLASTIN TIME (01/12/2025 2:41 PM CDT) PTT 36.2 25.1 - 36.5 SEC 01/12/2025 4:01 PM CDT [facility] 01/12/2025 2:41 PM CDT Erwin Loyola MD LABORATORY Final Res ult [facility] [address] [place] [address], [place] [phone] * (ABNORMAL) PROTIME/INR, VENOUS (01/12/2025 2:41 PM CDT) Pathologist [facility] PROTIME 13.3(H) 10.2 - 12.9 SEC 01/12/2025 4:01 PM CDT [facility] INR 1.2 01/12/2025 4:01 PM CDT [facility] Comment: Recommended INR Therapeutic Goals: 2.0-3.0 Routine Therapy 2.5-3.5 Mechanical Prosthetic Valves (High Risk) 01/12/2025 2:41 PM CDT Erwin Loyola MD LABORATORY Final Res ult [facility] [address] [place] [address], [place] [phone] * (ABNORMAL) CBC W/DIFF AUTOMATED (01/12/2025 2:41 PM CDT) WBC 4.90 4.5 - 11.0 x10'3/uL 01/12/2025 3:40 PM CDT [facility] RBC 4.97 4.70 - 6.10 x10'6/uL 01/12/2025 3:40 PM CDT [facility] HGB 15.5 14.0 - 18.0 G/DL 01/12/2025 3:40 PM CDT [facility] HCT 46.3 43.0 - 54.0 % 01/12/2025 3:40 PM CDT [facility] MCV 93.2 80.0 - 94.0 FL 01/12/2025 3:40 PM CDT [facility] MCH 31.2(H) 27.0 - 31.0 PG 01/12/2025 3:40 PM CDT [facility] MCHC 33.5 32.0 - 36.0 G/DL 01/12/2025 3:40 PM CDT [facility] RDW 15.0(H) 11.5 - 14.5 % 01/12/2025 3:40 PM CDT [facility] PLT 103(L) 130 - 400 x10'3/uL 01/12/2025 3:40 PM CDT [facility] MPV 11.5 9.3 - 12.2 FL 01/12/2025 3:40 PM CDT [facility] DIFFERENTIAL TYPE AUTOMATED DIFFERENTIAL 01/12/2025 3:40 PM CDT [facility] NEUTROPHILS % 49.4 % 01/12/2025 3:40 PM CDT [facility] LYMPHOCYTES % 33.7 % 01/12/2025 3:40 PM CDT [facility] MONOCYTES % 9.8 % 01/12/2025 3:40 PM CDT [facility] EOSINOPHILS 6.3 % 01/12/2025 3:40 PM CDT [facility] BASOPHILS 0.4 % 01/12/2025 3:40 PM CDT [facility] IMMATURE GRANS % 0.4 % 01/13/20 3:40 PM CDT [facility] ABS. NEUTROPHILS 2.42 1.80 - 7.70 x10'3/uL 01/12/2025 3:40 PM CDT [facility] ABS. LYMPHOCYTES 1.65 1.00 - 4.80 x10'3/uL 01/12/2025 3:40 PM CDT [facility] ABS. MONOCYTES 0.48 0.30 - 0.82 x10'3/uL 01/12/2025 3:40 PM CDT [facility] ABS. EOSINOPHILS 0.31 0.04 - 0.54 x10'3/uL 01/12/2025 3:40 PM CDT [facility] ABS. BASOPHILS 0.02 0.01 - 0.08 x10'3/uL 01/12/2025 3:40 PM CDT [facility] ABS. IMMATURE GRANULOCYTES 0.02 0.00 - 0.49 x10'3/uL 01/12/2025 3:40 PM CDT [facility] 01/12/2025 2:4 1 PM CDT Erwin Loyola MD LABORATORY Final Res ult [facility] [address] [place] [address], [place] [phone] documented in this encounter Visit Diagnoses Diagnosis Gross hematuria- Primary Frequency of micturition Urinary frequency Lesion of bladder Unspecified disorder of bladder documented in this encounter Care Teams Wood Casket Assembler Relationship Specialty Start Date End Date Migdalia Pfeiffer MD [address] [place] [address] PCP - General INTERNAL MEDICINE 01/12/25 documented as of this encounter
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
[2025-01-27] MEDS: MORPHINE SULFATE (*CRX) 4 MG/ML INJ IV PUSH (04:59)
[2025-01-27] MEDS: LACTATED RINGERS 1,000 ML 999 ML IV CONT (04:59)
[2025-01-27 05:40] LABS: Troponin I < 0.012 ng/mL (0.000-0.034)
[2025-01-27 06:01] LABS: Add Urine Microscopic? YES; Appearance Urine Clear (Clear); Bacteria Urine None Seen /hpf; Bilirubin Urine Negative (Negative); Blood Urine 3+ (Negative); Color Urine Yellow (Yellow); Glucose Urine UA 3+ mg/dL (Negative); Ketones Urine 2+ mg/dL (Negative); Leukocyte Esterase Ur 1+ LEU/UL (Negative); Nitrate Urine Negative (Negative); Non Pathogenic Casts 0-2; Protein Urine Negative (Negative); RBC Urine 51-100 /hpf (0-2); Squamous Epithelial Cell Urine None Seen /hpf (Few); WBC Urine >100 /hpf (0-3); pH Urine 5.5 (5.0-9.0)
== END 2025-01-27 06:57 | disposition home or self-care (01) ==
PROVIDERS: Emergency Provider Student in an Organized Health Care Education/Training Program
DX: N39.0 Urinary tract infection, site not specified (principal); K85.90 Acute pancreatitis without necrosis or infection, unspecified; R74.8 Abnormal levels of other serum enzymes; G20.A1 Parkinson's disease without dyskinesia, without mention of fluctuations; I10 Essential (primary) hypertension; E11.319 Type 2 diabetes mellitus with unspecified diabetic retinopathy without macular edema; E11.42 Type 2 diabetes mellitus with diabetic polyneuropathy; E78.00 Pure hypercholesterolemia, unspecified; J45.909 Unspecified asthma, uncomplicated; K74.60 Unspecified cirrhosis of liver; K50.90 Crohn's disease, unspecified, without complications; N40.0 Benign prostatic hyperplasia without lower urinary tract symptoms; F32.A Depression, unspecified; Z87.891 Personal history of nicotine dependence; Z90.49 Acquired absence of other specified parts of digestive tract; Z79.899 Other long term (current) drug therapy; Z79.84 Long term (current) use of oral hypoglycemic drugs
CPT/HCPCS: 36415; 71046; 74177; 80053; 81001; 83690; 84484; 85025; 85055; 85610; 85730; 87086; 87181; 93005; 96361; 96374; 99284; J2270; J7120; Q9967

== ENCOUNTER 2025-03-15 11:29 | Emergency (ER) | payer MEDICARE, OTHER, SELFPAY ==
[2025-03-15 11:30] VITALS: BP 142/74; PULSE 92; RESP 18; TEMP 36.7; O2SAT 98
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
[2025-03-15 11:43] LABS: Add Urine Microscopic? YES; Appearance Urine Clear (Clear); Glucose Urine UA 3+ (Negative); Leukocyte Esterase Ur Trace (Negative); Nitrate Urine Negative (Negative); Specific Grav Ur <= 1.005 (1.010-1.020)
--- OUTSIDE RECORDS SUMMARY | 2025-03-15 11:54 | XMS_ITS | Clinical Summary ---
Author Organization [facility] Address [address] [place] [address] Care Team Providers Care Assembler Name Role Phone Arina Dobbins RN Unavailable [phone] Koko Sol DO Primary Care Provider [phone] Source Comments [facility],non-owned Affiliates and Associated Physician Practices is amultiple site organization consisting of ambulatory clinics and hospital sitesin [place], [place], [place] and [place]. This disclosure is being madepursuant to the Care Everywhere program and may not contain all information available regarding this patient. Last updated 18.[facility] Allergies Active Allergy Reactions Criticality Noted Date [...] fluticasone propionate (FLONASE) 50 MCG/ACT nasal spray [place] 1 (one) spray into each nostril as [...] by mouth once daily 10/17/19 24 Active donepezil (Aricept) 10 MG tabletIndications: Memory loss Take 1 (one) tablet by mouth 2 times daily 180 tablet 3 02/11/20 24 Active traMADol (Ultram) 50 MG tablet Take 1 (one) tablet by mouth every 6 hours as needed for Pain 12 tablet 04/13/20 24 Active memantine (Namenda) 10 MG tabletIndications: Memory loss Take 1 (one) tablet by mouth 2 times daily 180 tablet 3 02/18/20 25 Active carbidopa-levodopa (Sinemet) 25-100 MG tabletIndications: Parkinson's disease without dyskinesia or fluctuating manifestations (HCC),Tremor Take 1 (one) tablet by mouth 4 times daily 120 tablet 11 03/04/20 25 Active carbidopa-levodopa (Sinemet) 25-100 MG tabletIndications: Parkinson's disease without dyskinesia or fluctuating manifestations (HCC),Tremor Take 1 (one) tablet by mouth 4 times daily 120 tablet 11 02/11/20 24 025 Discontin ued(Reord er) memantine (Namenda) 5 MG tabletIndications: Memory loss Take 1 (one) tablet by mouth 2 times daily 180 tablet 3 02/11/20 24 025 Discontin ued(Dose Adjustmen t) Active Problems Problem Noted Date Diagnosed Date Gallstone pancreatitis 10/18/2015 Cellulitis 05/12/2015 Ulcer of left lower extremity 05/12/2015 Chest pain 05/08/2012 Thrombocytopenia, secondary 05/08/2012 Leukopenia 05/08/2012 DM (diabetes mellitus) type II, controlled, with peripheral vascular disorder 05/08/2012 Overview (11/08/2017): IMO update 11 09 2017 Venous insufficiency 05/08/2012 Hyperlipidemia 05/08/2012 Asthma 05/08/2012 Hypertension 05/08/2012 Encounters Date Type Department Care Team Description 03/04/2025 Refill [facility] [id number] [place] [address] [facility] [address] [place] [phone] Kiran Beltran MD MEDICATION REFILL 02/17/2025 11:00 AM CDT Office Visit [facility] [id number] [place] [address] [place] [phone] Kiran Beltran MD DDD (degenerative disc disease), cervical (Primary Dx); Memory loss 02/17/2025 Telephone [facility] [id number] [place] [address] [facility] [address] [phone] Rekha Beltran MD Concerns 01/08/2025 Results Follow-Up [facility] [id number] [place] [address] [facility] [address] [place] [address] Kiran Beltran MD from Last 3 Months Immunizations Immunization Administration Dates Next Due CovArch Biopartners primary monoval ent 12+ yr 0.3mL Purple [...] AM CDT Legal Sex Male 6:31 AM TIE SAWYER Gender Identity Not on file Sexual Orientation Not on file 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 Job End Date 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 Not on file Not on file 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 on 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 on file Not on file Not on file Last Filed Vital Signs Vital Sign Reading Time Taken Comments Blood Pressure 130/60 02/17/2025 11:10 AM CDT Pulse 85 02/17/2025 11:10 AM CDT Temperature 36.4 C (97.5 F) 04/13/2024 2:42 PM CDT Respiratory Rate 18 08/19/2024 10:03 AM TIE SAWYER Oxygen Saturation 97% 02/17/2025 11:10 AM CDT Inhaled Oxygen Concentration 40% 07/26/2015 4 :25 AM TIE SAWYER Weight 96.2 kg (212 lb) 02/17/2025 11:10 AM CDT Height 182.9 cm (6') 02/17/2025 11:10 AM CDT Body Mass Index 28.75 02/17/2025 11:10 AM CDT Plan of Treatment Upcoming Encounters Date Type Department Care Team (Late st Contact Info) Description 04/08/2025 10:00 AM CDT Office Visit [facility] [address] [facility] [address] [place] [phone] [place] [address] [address] 09/07/2025 10:00 AM TIE SAWYER Office Visit [facility] [address] [facility] [address] [place] [address] [place] [address] [facility] [facility] [address] [place] [address] Health Maintenance Due Date Last Done Comments [...] Td or Tdap) 06/15/2020 06/15/2010 COVID-19 VACCINE ( season) 2024 10/26/2020, 10/05/2020 DEPRESSION SCREENING 08/11/2024 04/02/2024 DIABETES - URINE PROTEIN SCREENING 08/11/2024 INFLUENZA VACCINE (#1) 2025 , 05/25/2019, 06/02/2018, Additional history exists DIABETES-SERUM CREATININE 01/12/20262024, 01/12/2025, 09/19/2023, Additional history exists COLON MONITORING 08/28/2027 08/28/2022, , 02/04/2019, Additional history exists Colorectal Cancer Screening 08/28/2027 COLONOSCOPY - COLON CA SCREENING 08/28/2032 08/28/2022, 08/28/2022, 02/04/2019, Additional history exists HEPATITIS C SCREENING Completed 07/24/2015, 012 HEPATITIS B VACCINE Aged Out No longe [...] ENDOSCOPY, COLON, DIAGNOSTIC Routine 08/28/2022 7:25 AM TIE SAWYER Rectal bleeding COMPREHENSIVE METABOLIC PANEL Routine 08/15/2022 12:20 PM TIE SAWYER Other cirrhosis of liver HEPATITIS C RNA QUANTITATIVE AM Draw 07/24/2015 2:43 AM TIE SAWYER HEMOGLOBIN A1C Routine 05/11/2015 6:59 AM CDT from Last 3 Months or Most Recently Relevant to Health Maintenance Results * ENDOSCOPY, COLON, DIAGNOSTIC (08/28/2022 7:25 AM TIE SAWYER) Report Endoscopy POC _ Patient Name: Rekha Sigala Procedure Date: 08/28/2022 7:25 AM Date of : 1955 Admit Type: Outpatient Age: 67 Gender: Male Ethnicity: Not or Race: White Attending MD: Declan Hurst MD _ Procedure: Colonoscopy Indications: Hematochezia Providers: Declan Hurst MD (Doctor), Chanel Ornelas RN, Phyllis Salazar, Sand System Operator Patient Profile: 67M presents for eval of rectal bleeding. last exam 4 yrs prior Referring MD: [address] [place] [address] [facility] (Referring MD) Medicines: Monitored Anesthesia [...] for surveillance. Procedure Code(s): --- Professional --- 60044, Colonoscopy, flexible; diagnostic, including collection of specimen(s) by brushing or washing, when performed (separate procedure) --- Technical --- 25367, Colonoscopy, flexible; diagnostic, including collection of specimen(s) by brushing or washing, when performed (separate procedure) Diagnosis Code(s): --- Professional --- K64.8, Other hemorrhoids K92.1, Melena (includes Hematochezia) --- Technical --- K64.8, Other hemorrhoids K92.1, Melena (includes Hematochezia) CPT copyright 2019 [employer]. All rights reserved. The codes documented in this report are preliminary and upon vulcanizer operator review may be revised to meet current compliance requirements. Declan Hurst MD 08/28/2022 9:07:58 AM This report has been signed electronically. Number of Addenda: 0 Note Initiated On: 08/28/2022 7:25 AM [facility] ENDOSCOPY 08/28/2022 7:25 AM TIE SAWYER Narrative Procedure Note Declan Hurst MD - 08/28/2022 9:08 AM CST Colonoscopy Small int hemorrhoids Nl otherwise Psyllium Rpt 5 yrs us Declan Hurst MD GI PROCEDURE ORDERABLES Edited R esult - Final [facility] ENDOSCOPY * (ABNORMAL) COMPREHENSIVE METABOLIC PANEL (08/15/2022 12:20 PM TIE SAWYER) Glucose 110(H) 65 - 99 mg/dL [facility] [...] 46 U/L [facility] Comment: Test Performed at: [facility] [id number] [facility] [place] [address] DEWAYNE SEBASTIAN DO,MPH Blood BLOOD SPECIMEN / Unknown 08/15/2022 12:20 PM TIE SAWYER 08/15/2022 12:21 PM TIE SAWYER Karla Galindo [facility] - CHEMISTRY ORDER RAYMOND Final Result [facility] [address] [place] [address] * HEPATITIS C RNA QUANTITATIVE PCR (07/24/2015 2:43 AM TIE SAWYER) Hepatitis C Virus RNA Quantitative <15 IU/mL 07/26/2015 8:40 AM [facility] ([facility]) Hepatitis C Virus RNA Log Quantitative <1.2 log IU 07/26/2015 8:40 AM [facility] ([facility]) Comment: INTERPRETIVE INFORMATION: Hepatitis C Virus by [...] Not Detected Not Detected 07/26/2015 8:40 AM [facility] ([facility]) EER HCV See Note 07/26/2015 8:40 AM [facility]) Comment: To download an enhanced report for this test go to: [email or web address] Blood specimen (specimen) BLOOD SPECIMEN / Unknown Lab Venipuncture / Unknown 07/24/2015 2:43 AM TIE SAWYER 07/24/2015 3:25 AM TIE SAWYER Scotty Marinoyarely [facility] - CHEMISTRY ORDERABLE S Final Result [facility]) [address] [place], [place] [address] * HEMOGLOBIN A1C (05/11/2015 6:59 AM CDT) Hemoglobin A1c 6.1 4.2 - 6.3 % 05/11/2015 8:36 AM CDT [facility] Estimated Average Glucose 128 mg/dL 05/11/2015 8:36 AM CDT [facility] Whole Blood BLOOD SPECIMEN WITH EDTA / Unknown Lab Venipuncture / Unknown 05/11/2015 6:59 AM CDT 05/11/2015 7:10 AM CDT us Tamiko Mcclain [facility] - CHEMISTRY ORDERABL ES Final Result [facility] [address] [place] [address] from Last 3 Months or Most Recently Relevant to Health Maintenance Insurance MEDICARE [facility] MEDICARE [facility] Advance Directives Documents on File Type Date Recorded Patient Tile Sorter Expl anation Adv Directive/Living Will/POA 11/20/2015 5:54 [...] 12:10 PM 05/08/2012 1:39 PM Care Teams Assembler Relationship Specialty Start Date End Date Koko Sol DO [address] [place] [address] PCP - General Internal Medicine 02/11/24 Arina Dobbins, RN Real Estate Coordinator 05/11/15
--- OUTSIDE RECORDS SUMMARY | 2025-03-15 11:54 | XMS_ITS | Clinical Summary ---
Author Organization [facility] Address [address] [place] [address] Care Team Providers Care Exec. Creative Director Name Role Phone Unavailable Primary Care Provider Unavailabl e Social History Tobacco Use Types Packs/Day Years Used Date Smoking Tobacco: Never Assessed Sex and Gender Information Value Date Recorded Sex Assigned at Not on file Legal Sex Male 7:59 AM FRONT MAN Gender Identity Not on file Sexual Orientation [...] (1 of 2) 2003 INFLUENZA VACCINE (#1) 2025 RSV VACCINE (60+ or ) (1 - 1-dose 75+ series) 01/08/2028
--- OUTSIDE RECORDS SUMMARY | 2025-03-15 11:54 | XMS_ITS | Encounter Summary ---
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 Job End Date 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 Not on file 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 on 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 Not on file Not [...] Description 04/08/2025 10:00 AM CDT Office Visit [address] [address] [place] [address] [place] [address] 09/07/2025 10:00 AM SUGAR REPROCESS OPERATOR HEAD Office Visit [address] [address] [place] [address] [place] [address] documented as of this encounter Visit Diagnoses Not on filedocumented in this encounter Care Teams Glassine Machine Tender Relationship Specialty Start Date End Date John Samuels MD [facility] [address] [place] [phone] PCP - General Internal Medicine 05/11/15 06/29/20 Rianna Ambriz DO PCP - General Student Resident 06/30/20 06/30/20 John Samuels MD [facility] [address] [place] [address] PCP - General 07/01/20 02/21/21 Rianna Ambriz DO PCP - General Student Resident 02/22/21 03/13/21 Koko Sol DO [address] [place] [phone] PCP - General Internal Medicine 02/11/24 rAina Dobbins, RN Stripping Shovel Oiler 05/11/15 documented as of this encounter
--- OUTSIDE RECORDS SUMMARY | 2025-03-15 11:54 | XMS_ITS | Encounter Summary ---
Author Organization [facility] Address [address] [place] [address] Care Team Providers Care Oil Well Services Supervisor Name Role Phone Migdalia Pfeiffer MD Primary Care Provider [phone] Encounter Details Date Type Department Care Team (Late st Contact Info) Description 01/18/2025 Prep for Procedure [facility] [address] [place], [place] [phone] Erwin Loyola MD [address] [facility] [address] [place], [place] [phone] Social History Tobacco Use Types Packs/Day Years [...] PM CDT Legal Sex Male 7:22 AM PURSE SEINING HAND Gender Identity Not on file Sexual Orientation Not on file documented as of this encounter Functional Status * Calculated C-SSRS Risk Score (Lifetime/Recent) Answer Date of Assessment Author Status No Risk Indicated 01/18/2025 7:15 AM Veto Avila RN Active * [place] Suicide Severity Rating Scale (Screener/Recent Self-Report) Question [...] BASIC METABOLIC PANEL (01/12/2025 2:49 PM CDT) [facility] GLUCOSE 178(H) 70 - 99 MG/DL 01/12/2025 3:54 PM CDT [facility] BUN 12 7 - 18 MG/DL 01/12/2025 3:54 PM CDT [facility] CREATININE S/P/B 0.72 0.7 - 1.3 MG/DL 01/12/2025 3:54 PM CDT [facility] SODIUM S/P/B 140 136 - 145 MMOL/L 01/12/2025 3:54 PM CDT [facility] POTASSIUM S/P/B 3.6 3.5 - 5.1 MMOL/L 01/12/2025 3:54 PM CDT [facility] CHLORIDE S/P/B 106 97 - 115 MMOL/L 01/12/2025 3:54 PM CDT [facility] CO2 26.4 21 - 32 MMOL/L 01/12/2025 3:54 PM CDT [facility] CALCIUM S/P/B 9.6 8.5 - 10.1 MG/DL 01/12/2025 3:54 PM CDT [facility] ANION GAP 7.6 2 - 10 MMOL/L 01/12/2025 3:54 PM CDT [facility] BUN CREATININE RATIO 16.7 6 - 26 01/12/2025 3:54 PM CDT [facility] GFR ESTIMATE >90 >90 ML/MIN/1.7 3 M2 01/12/2025 3:54 PM CDT [facility] Comment: NOTE: eGFR is not calculated [...] Erwin Loyola MD LABORATORY Final Res ult [facility] [address] [place] [address], [place] [phone] * (ABNORMAL) URINALYSIS (01/12/2025 2:47 PM CDT) SPECIMEN TYPE URINE CLEAN CATCH 01/12/2025 2:47 PM CDT [facility] COLOR (U) LIGHT YELLOW 01/12/2025 4:48 PM CDT [facility] TRANSPARENCY CLEAR 01/12/2025 4:48 PM CDT [facility] SPECIFIC GRAVITY (U) 1.042(H) 1.001 - 1.030 01/12/2025 4:48 PM CDT [facility] U PH 6.0 5.0 - 9.0 01/12/2025 4:48 PM CDT [facility] LEUKOCYTES (U) NEGATIVE NEGATIVE 01/12/2025 4:48 PM CDT [facility] NITRITES NEGATIVE NEGATIVE 01/12/2025 4:48 PM CDT [facility] PROTEIN RANDOM (U) NEGATIVE <30 MG/DL 01/12/2025 4:48 PM CDT [facility] GLUCOSE (U) >1000(A) NORMAL MG/DL 01/12/2025 4:48 PM CDT [facility] KETONES MG/DL (U) NEGATIVE NEGATIVE MG/DL 01/12/2025 4:48 PM CDT [facility] UROBILINOGEN NORMAL NORMAL MG/DL 01/12/2025 4:48 PM CDT [facility] BILIRUBIN (U) NEGATIVE NEGATIVE MG/DL 01/12/2025 4:48 PM CDT [facility] BLOOD (U) NEGATIVE NEGATIVE 01/12/2025 4:48 PM CDT [facility] URINE SPECIMEN OBTAINED BY CLEAN CATCH PROCEDURE / Unknown 01/12/2025 2:47 PM CDT us Erwin Loyola MD URINE ORDERABLES Final Re sult Performing Organization Address [facility]/ZIP Co de Phone Number [facility] [address] [place] [address], [place] [phone] * URINE BACTERIA CULTURE (01/12/2025 2:47 PM CDT) SPEC DESCRIPTION URINE CLEAN CATCH 01/12/2025 2:47 PM CDT [facility] SPECIAL REQUESTS NO SPECIAL REQUEST 01/12/2025 2:47 PM CDT [facility] CULTURE RESULT NO GROWTH 2 DAYS 01/14/2025 9:11 AM CDT [facility] URINE SPECIMEN OBTAINED BY CLEAN CATCH PROCEDURE / Unknown 01/12/2025 2:47 PM CDT 01/12/2025 2:49 PM CDT us Erwin Loyola MD MICROBIOLOGY - GENERAL OR DERABLES Final Result [facility] [address] [place] [address], [place] [phone] * PTT, PARTIAL THROMBOPLASTIN TIME (01/12/2025 2:41 PM CDT) PTT 36.2 25.1 - 36.5 SEC 01/12/2025 4:01 PM CDT [facility] 01/12/2025 2:41 PM CDT Erwin Loyola MD LABORATORY Final Res ult [facility] [address] [place] [address], [place] [phone] * (ABNORMAL) PROTIME/INR, VENOUS (01/12/2025 2:41 PM CDT) Pathologist [facility] PROTIME 13.3(H) 10.2 - 12.9 SEC 01/12/2025 4:01 PM CDT [facility] INR 1.2 01/12/2025 4:01 PM CDT [facility] Comment: Recommended INR Therapeutic Goals: 2.0-3.0 Routine Therapy 2.5-3.5 Mechanical Prosthetic Valves (High Risk) 01/12/2025 2:41 PM CDT Erwin Loyola MD LABORATORY Final Res ult [facility] [address] [place] [address], [place] [phone] * (ABNORMAL) CBC W/DIFF AUTOMATED (01/12/2025 2:41 PM CDT) WBC 4.90 4.5 - 11.0 x10'3/uL 01/12/2025 3:40 PM CDT [facility] RBC 4.97 4.70 - 6.10 x10'6/uL 01/12/2025 3:40 PM CDT [facility] HGB 15.5 14.0 - 18.0 G/DL 01/12/2025 3:40 PM CDT [facility] HCT 46.3 43.0 - 54.0 % 01/12/2025 3:40 PM CDT [facility] MCV 93.2 80.0 - 94.0 FL 01/12/2025 3:40 PM CDT [facility] MCH 31.2(H) 27.0 - 31.0 PG 01/12/2025 3:40 PM CDT [facility] MCHC 33.5 32.0 - 36.0 G/DL 01/12/2025 3:40 PM CDT [facility] RDW 15.0(H) 11.5 - 14.5 % 01/12/2025 3:40 PM CDT [facility] PLT 103(L) 130 - 400 x10'3/uL 01/12/2025 3:40 PM CDT [facility] MPV 11.5 9.3 - 12.2 FL 01/12/2025 3:40 PM CDT [facility] DIFFERENTIAL TYPE AUTOMATED DIFFERENTIAL 01/12/2025 3:40 PM CDT [facility] NEUTROPHILS % 49.4 % 01/12/2025 3:40 PM CDT [facility] LYMPHOCYTES % 33.7 % 01/12/2025 3:40 PM CDT [facility] MONOCYTES % 9.8 % 01/12/2025 3:40 PM CDT [facility] EOSINOPHILS 6.3 % 01/12/2025 3:40 PM CDT [facility] BASOPHILS 0.4 % 01/12/2025 3:40 PM CDT [facility] IMMATURE GRANS % 0.4 % 01/13/20 3:40 PM CDT [facility] ABS. NEUTROPHILS 2.42 1.80 - 7.70 x10'3/uL 01/12/2025 3:40 PM CDT [facility] ABS. LYMPHOCYTES 1.65 1.00 - 4.80 x10'3/uL 01/12/2025 3:40 PM CDT [facility] ABS. MONOCYTES 0.48 0.30 - 0.82 x10'3/uL 01/12/2025 3:40 PM CDT [facility] ABS. EOSINOPHILS 0.31 0.04 - 0.54 x10'3/uL 01/12/2025 3:40 PM CDT [facility] ABS. BASOPHILS 0.02 0.01 - 0.08 x10'3/uL 01/12/2025 3:40 PM CDT [facility] ABS. IMMATURE GRANULOCYTES 0.02 0.00 - 0.49 x10'3/uL 01/12/2025 3:40 PM CDT [facility] 01/12/2025 2:41 PM CDT Erwin Loyola MD LABORATORY Final Res ult [facility] [address] [place] [address], [place] [phone] documented in this encounter Visit Diagnoses Diagnosis Gross hematuria- Primary Frequency of micturition Urinary frequency Lesion of bladder Unspecified disorder of bladder documented in this encounter Care Teams Oil Well Services Supervisor Relationship Specialty Start Date End Date Migdalia Pfeiffer MD [address] [place] [address] PCP - General INTERNAL MEDICINE 01/12/25 documented as of this encounter
--- OUTSIDE RECORDS SUMMARY | 2025-03-15 11:54 | XMS_ITS | Referral Summary ---
Author Organization [facility] Address [address] [place] [address] Care Team Providers Care Direct Support Worker Name Role Phone Migdalia Pfeiffer MD Primary Care Provider [phone] Encounters Date Type Department Care Team Description 02/10/2025 10:30 AM CDT Office Visit [facility] Neurological Testing [address] [facility] 6th [place] [address] [place] [id number] Right hand weakness [R29.898] (Primary Dx) 02/10/2025 9:20 AM CDT Procedure visit [facility] Neurological Testing [address] [facility] 6th [place] [address] [place] [id number] Paresthesia of left upper extremity; Paresthesia of right upper extremity 01/27/2025 Orders Only [facility] SLEEP Scanning, Provider 01/17/2025 11:30 AM CDT Office Visit [facility] Cardiology [address] [facility], [address] [place] [phone] Tito Costello MD Preop cardiovascular exam (Primary Dx); Essential hypertension; Orthostasis; Atypical chest pain 01/12/2025 11:30 AM CDT [facility] [address] [facility] 4th [address] [place] [address] Julius Jarrett DPM Follow-up exam [Z09] (Primary Dx); DM (diabetes mellitus) type II, controlled, with peripheral vascular disorder (HCC) [E11.51] 01/04/2025 10:49 AM CDT - 01/04/2025 11:59 PM CDT Hospital Encounter [facility] [address] [place] [address] Seronegative rheumatoid arthritis (HCC); High risk medication use Discharge Disposition: Discharge to home or self care 01/04/2025 12:30 PM CDT Lab [facility] Endocrinology Metabolism and Lipid [facility] 5th [place] [address] [place] [address] Seronegative rheumatoid arthritis (HCC); High risk medication use 01/04/2025 9:40 AM CDT Office Visit [facility] Rheumatology [facility] 5th [place] [address] [place] [address] Cristina Hernandez MD High risk medication use (Primary Dx); Seronegative rheumatoid arthritis (HCC); Paresthesia of left upper extremity; Paresthesia of right upper extremity 12/14/2024 11:00 AM CDT Ancillary Procedure [facility] Vascular Lab at the [facility] [address] [facility] 8th [place] [address] [place] [address] Type II diabetes mellitus with peripheral circulatory disorder (HCC) from Last 3 Months Allergies Active Allergy [...] 90 mg Active empagliflozin (JARDIANCE) 10 mg tabletIndication s:type 2 diabetes mellitus Take 1 tablet (10 mg total) by mouth daily 8 Active HORIZANT 600 mg tablet extended release 8 Active metFORMIN (GLUCOPHAGE) 1,000 mg tablet Take 1 tablet (1,000 mg total) by mouth 2 (two) times a day with meals Active nystatin-triamci nolone creamIndications :cutaneous candidiasis 2 times daily 5 Active triamcinolone (KENALOG) 0.1 % ointment Apply topically as needed Active traZODone (DESYREL) 100 mg tablet 9 Active traMADol (ULTRAM) 50 mg tablet Take 1 tablet (50 mg total) by mouth as needed for pain Active carbidopa-levodo pa (SINEMET) 25-100 mg per tablet Take 1 tablet by mouth 4 (four) times a day 9 Active donepeziL (ARICEPT) 10 mg tablet Take 1 tablet (10 mg total) by mouth nightly 1 Active albuterol HFA (PROVENTIL HFA,VENTOLIN HFA,PROAIR HFA) 90 mcg/actuation inhalerIndicatio ns:Medication refill Inhale 2 puffs every 4 (four) [...] mcg by mouth 3 Active sodium chloride (Morrison Nasal) 0.65 % nasal spray Administer into affected nostril(s) 3 Active vibegron (GEMTESA ORAL) Take by mouth daily Active semaglutide (OZEMPIC) 0.25 mg or 0.5 mg(2 mg/1.5 mL) pen injector injection Inject under the skin Active predniSONE (DELTASONE) 5 mg tablet Take 1 tablet (5 mg) by mouth daily 30 tablet 2 5 Active golimumab (Simponi) 50 mg/0.5 mL pen injectorIndicati ons:Rheumatoid Arthritis Inject 0.5 mL (50 mg total) under the skin every 30 (thirty) days 0.5 mL 2 5 Active Additional Information Patient not taking.Reason: hasn't started, Reported on 01/17/2025 Active Problems Problem Noted Date Diagnosed Date [...] followed by Neurosurgery, Dr. Lopez at [facility], with residual right arm weakness. This was thought to be secondary to MSSA bacteremia. Bacterial endocarditis 02/09/2018 Overview (02/09/2018): Mitral valve endocarditis, MSSA bacteremia in July 2015, followed by Cardiology, Dr. Ponce at [facility]. 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 Hurst at [facility]. 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 Gender Identity Not on file Sexual Orientation Not on file Last Filed Vital Signs Vital Sign Reading Time Taken Comments Blood Pressure 133/75 01/17/2025 11:13 AM CDT Pulse 77 01/04/2025 9:28 AM CDT Temperature 36.3 C (97.4 F) 01/04/2025 9:28 AM CDT Respiratory Rate 20 10/13/2024 9:30 AM FORENSICS ANALYST Oxygen Saturation 96% 12/01/2024 10:49 AM CDT Inhaled Oxygen Concentration - - Weight 100.2 kg (221 lb) 01/17/2025 11:13 AM CDT Height 182.9 cm (6') 01/17/2025 11:13 AM CDT Body Mass Index 29.97 01/17/2025 11:13 AM CDT Plan of Treatment Not on file Procedures Procedure Name Priority Date/Time Associated Diagnosis Comments EMG/NCV Routine 02/10/2025 11:09 AM CDT Paresthesia of left upper extremity Paresthesia of right upper extremity SLEEP LAB/STUDY - RESULT 01/27/2025 4:58 PM CDT PROTEIN / CREATININE RATIO, URINE, RANDOM Routine [...] (HCC) LIPID PANEL Routine 10/14/2022 12:38 PM FORENSICS ANALYST Chest pain, unspecified type High risk medication use HEPATITIS PANEL, ACUTE Routine 01/02/2021 10:32 AM CDT Thrombocytopenia Arthralgia, unspecified joint HEMOGLOBIN A1C Routine 04/20/2019 12:26 PM CDT from Last 3 Months or Most Recently Relevant to Health Maintenance Results * EMG/NCV (02/10/2025 11:09 AM CDT) Anatomical Region Laterality Modality Other Narrative 02/10/2025 11:09 AM CDT Regan Hays MD 02/10/2025 3:31 PM EMG/NCV - Date/Time: 02/10/2025 11:09 AM Performed by: Regan Hays MD Authorized by: Cristina Hernandez MD Cristina Hernandez MD NEUROLOGY ORDERABLES Final Resul t * SLEEP LAB/STUDY - RESULT (01/27/2025 4:58 PM CDT) Provider Scanning Edited Result - Final * (ABNORMAL) Urinalysis reflex to microscopic and culture Urine, clean voided (01/04/2025 10:49 AM CDT) Color, ur Yellow Yellow Clarity, ur Clear Clear [facility] Specific gravity, ur >1.042(H) 1.003 - 1.030 [facility] pH, urine 6.0 [facility] Comment: Interpretive Data U rine pH is affected by diet, medications, systemic acid-base disturbances, and renal tubular function. pH may affect urinary stone formation. For example, urine pH below 6.0 may help reduce the tendency for calcium phosphate stones and pH greater than 6.0 may reduce the tendency for uric acid stone formation. Source: [facility] Current Interpretive Data was last revised on 2017 Protein, ur ql Negative Negative [facility] Glucose, ur ql 4+(A) Negative [facility] Ketones, ur Negative Negative [facility] Bilirubin, ur Negative Negative [facility] Blood, ur Negative Negative [facility] Urobilinogen, ur <2.0 <2.0 mg/dL [facility] Nitrite, ur Negative Negative [facility] Leukocyte esterase, ur Negative Negative [facility] UA reflex comment Reflex conditions for microscopic UA and culture not met. [facility] Urine, clean voided 01/04/2025 10:49 AM CDT 01/04/2025 2:00 PM CDT Cristina Hernandez MD LAB MICROBIOLOGY - GENERAL ORDER RAYMOND Final Result [facility] [place] [address] * (ABNORMAL) CBC with auto differential (01/04/2025 [...] 9 AM CDT 01/04/2025 11:08 AM CDT Crsitina Hernandez MD LAB BLOOD ORDERABLES Final Resul t Performing Organization Address City/[facility] Co de Phone Number [facility] * Protein / creatinine ratio, urine, random (01/04/2025 10:49 AM CDT) Protein, ur, quant 6.5 mg/dL Comment: Interpretive Data No reference range established. Current interpretive data was last revised 2018. Creatinine Ur 46.2 mg/dL [facility] Comment: Interpretive Data No reference range established. Current interpretive data was last revised 2018. Protein/creatinin e ratio 140.7 0.0 - 180.0 mg/g CR [facility] Urine 01/04/2025 10:4 9 AM CDT 01/04/2025 2:00 PM CDT Cristina Hernandez MD LAB URINE ORDERABLES Final Resul t Performing Organization Address City/[facility] de Phone Number [facility] [place] [address] * (ABNORMAL) Erythrocyte sedimentation rate (01/04/2025 10:49 AM CDT) Erythrocyte Sedimentation Rate 20(H) <20 mm/hr [facility] Blood 01/04/2025 10:4 9 AM CDT 01/04/2025 11:08 AM CDT Cristina Hernandez MD LAB BLOOD ORDERABLES Final Resul t Performing Organization Address City/[facility]/ZIP Co de Phone Number [facility] * CRP (acute phase) (01/04/2025 10:49 AM CDT) C-Reactive Protein, Acute <3.0 <5.0 mg/L [facility] Blood 01/04/2025 10:4 9 AM CDT 01/04/2025 11:08 AM CDT Cristina Hernandez MD LAB BLOOD ORDERABLES Final Resul t [facility] [...] LAB BLOOD ORDERABLES Final Resul t [facility] * US Arterial Doppler Lower Extremity Bilateral (12/14/2024 11:03 AM CDT) Anatomical Region Laterality Modality Vascular Bilateral Ultrasound 12/14/2024 10:4 2 AM CDT Narrative 12/14/2024 10:01 PM CDT [facility] - Department of Vascular Surgery, Vascular Laboratory [address] [place] [address] Lower Extremity Arterial Doppler Report Patient Name: REKHA MONROE : 1955 Study Date: 12/14/2024 10:42:00 AM Gender: M Tech: Shonna Worley Location: [facility] Ref Provider: JULIUS JARRETT Quality: Adequate Order [...] mmHg Lt Brachial Pressure 129 mmHg Rt OYSTER CULTIVATOR Pressure 146 mmHg Lt OYSTER CULTIVATOR Pressure 144 mmHg Rt DPA Pressure 145 mmHg Lt DPA Pressure 136 mmHg Rt 1st Digit Pressure 180 mmHg Lt 1st Digit Pressure 144 mmHg Rt PT PRECIOUS Resting 1.13 Lt PT PRECIOUS Resting 1.12 Rt AT PRECIOUS Resting 1.12 Lt AT PRECIOUS Resting 1.05 Rt Digit/Arm Index 1.4 Lt Digit/Arm Index 1.12 Right Value Units Left Value Units FINDINGS: Performing Rn Sane: Shonna Worlye RVT, [place]. [facility] Ashley [place]ct[place]. Right All Levels: The [...] Procedure Note Rashad Alba MD - 12/14/2024 [facility] - Department of Vascular Surgery,Vascular Laboratory [address] [place] [address] Lower Extremity Arterial Doppler Report Patient Name: REKHA MONROE : 1955 Study Date: 12/14/2024 10:42:00 AM Gender: M Tech: Shonna Worley Location: [facility] Provider: JULIUS JARRETT Quality: Adequate Order Provider: [...] mmHg Lt Brachial Pressure 129 mmHg Rt OYSTER CULTIVATOR Pressure 146 mmHg Lt OYSTER CULTIVATOR Pressure 144 mmHg Rt DPA Pressure 145 mmHg Lt DPA Pressure 136 mmHg Rt 1st Digit Pressure 180 mmHg Lt 1st Digit Pressure 144 mmHg Rt PT PRECIOUS Resting 1.13 Lt PT PRECIOUS Resting 1.12 Rt AT PRECIOUS Resting 1.12 Lt AT PRECIOUS Resting 1.05 Rt Digit/Arm Index 1.4 Lt Digit/Arm Index 1.12 Right Value Units Left Value Units FINDINGS: Performing Rn Sane: Shonna Worley RVT, [place]. [facility] student Ashley Moctezuma. Right All Levels: The [...] FACS 12/14/2024 8:43:15 PM CDT us Julius [facility] US PROCEDURES Final R esult * Lipid panel (10/14/2022 12:38 PM FORENSICS ANALYST) Cholesterol 140 30 - 199 mg/dL [facility] Comment: Interpretive Data Ages [...] revised on 2018. Triglycerides 102 <=149 mg/dL [facility] Comment: Interpretive Data Ages < or [...] revised on 2018. HDL 59 >=40 mg/dL [facility] Comment: Interpretive Data Ages < or [...] on 2018. LDL, calculated 61 <=129 mg/dL [facility] Comment: Interpretive Data Ages < or [...] Non-HDL Cholesterol 81 mg/dL [facility] Comment: Interpretive Data Ages < or [...] last revised on 2018. Chol/HDL ratio 2 [facility] Blood 10/14/2022 12:3 8 PM FORENSICS ANALYST 10/14/2022 12:54 PM FORENSICS ANALYST us Tito Costello MD LAB BLOOD ORDERABLES Final Result Performing Organization Address [facility] Co de Phone Number [facility] [place] [address] * Hepatitis panel, acute (01/02/2021 10:32 AM CDT) Hep A IgM Nonreactive Nonreactive [facility] Comment: Interpretive Data: If Hep A IgM Ab is reported as Equivocal, a new sample should be drawn in two weeks for testing. Current interpretive data was last revised on 19. Hep B core IgM Nonreactive Nonreactive [facility] Comment: Interpretive Data If HepB Core IgM Ab is reported as Equivocal, a new sample should be drawn in two weeks for testing. Current interpretive data was last revised on 19. Hep C Ab Nonreactive Nonreactive [facility] Comment:Antibodies to HCV no t detected. Does NOT exclude the possibility of recent exposure to HCV. HepBsAg Nonreactive Nonreactive [facility] Blood specimen (specimen) 01/02/2021 10:32 AM CDT 01/02/2021 12:37 PM CDT us Cristina Hernandez MD LAB MICROBIOLOGY - GENERAL ORDER RAYMOND Edited Result - Final Performing Organization Address City/[facility]/ZIP Co de Phone Number [facility] [place] [address] * (ABNORMAL) Hemoglobin A1c (04/20/2019 12:26 PM CDT) Hgb A1C 6.1(H) 4.0 - 5.6 % [facility] Estimated Average Glucose 128 mg/dL [facility] Comment: The ADA recommends reporting an estimated Average Glucose (eAG) with all Hemoglobin A1c results using the equation derived from a study of 507 normal and diabetic adults. Minority populations were underrepresented and children were not included. (Diabetes Care 31:4103-7519, 2008). The eAG is not equivalent to a fasting glucose. Blood specimen (specimen) 04/20/2019 12:26 PM CDT 04/20/2019 12:50 PM CDT us Tito Costello MD LAB BLOOD ORDERABLES Final Result [facility] [address] [place] [address] from Last 3 Months or Most Recently Relevant to Health Maintenance Insurance [employer] MEDICARE MEDICARE [facility] [place] MEDICARE [facility] Care Teams Direct Support Worker Relationship Specialty Start Date End Date Migdalia Pfeiffer MD [address] [place] [address] PCP - General Internal Medicine 12/01/24
--- OUTSIDE RECORDS SUMMARY | 2025-03-15 11:54 | XMS_ITS | Encounter Summary ---
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 [place], [facility] [address] [place] [address] PCP - General 04/20/19 05/12/23 Koko Sol DO [address] [place] [address] PCP - General Internal Medicine 05/13/23 11/30/24 Migdalia Pfeiffer MD [address] [place] [address] [place] [address] PCP - General Internal Medicine 12/01/24 documented as of this encounter
--- OUTSIDE RECORDS SUMMARY | 2025-03-15 11:54 | XMS_ITS | Clinical Summary ---
Author Organization [facility] 2 Address [address] [facility] [place] [address] Care Team Providers Care Supervisor Agricultural Education Name Role Phone Migdalia Pfeiffer MD Primary Care Provider Allergies Active Allergy Reactions Criticality Noted Date [...] mcg by mouth 3 Active sodium chloride (Gilliam Nasal) 0.65 % nasal spray Administer into [...] 2015, followed by Neurosurgery, Dr. Lopez at [facility], with residual right arm weakness. This was thought to be secondary to MSSA bacteremia. Bacterial endocarditis 02/09/2018 Overview (02/09/2018): Mitral valve endocarditis, MSSA bacteremia in July 2015, followed by Cardiology, Dr. Ponce at [facility]. 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 Hurst at [facility]. Thrombocytopenia 04/04/2017 Gallstone pancreatitis 10/18/2015 Obesity [...] 02/10/2025 10:30 AM CDT Office Visit [facility] Neurological Testing [address] 6th [place] [address] [place] [address] Right hand weakness [R29.898] (Primary Dx) 02/10/2025 9:20 AM CDT Procedure visit [facility] Neurological Testing [address] 6th [place] [address] [place] [address] Paresthesia of left upper extremity; Paresthesia of right upper extremity 01/27/2025 Orders Only [facility] WHITESIDE SLEEP Scanning, Provider 01/17/2025 11:30 AM CDT Office Visit [facility] Cardiology [address] Floor [address], [address] [place] [address] Tito Costello MD Preop cardiovascular exam (Primary Dx); Essential hypertension; Orthostasis; Atypical chest pain 01/12/2025 11:30 AM CDT [facility] [address] [place] [address] Julius Jarrett, SERJIO Follow-up exam [Z09] (Primary Dx); DM (diabetes mellitus) type II, controlled, with peripheral vascular disorder (HCC) [E11.51] 01/04/2025 12:30 PM CDT Lab [facility] Endocrinology Metabolism and Lipid [address] [place] [address] 5th [place] [address] [place] [address] Seronegative rheumatoid arthritis (HCC); High risk medication use 01/04/2025 10:49 AM CDT - 01/04/2025 11:59 PM CDT Hospital Encounter [facility] [address] [place] [address] Seronegative rheumatoid arthritis (HCC); High risk medication use Discharge Disposition: Discharge to home or self care 01/04/2025 9:40 AM CDT Office Visit [facility] Rheumatology [facility] [facility] [facility] [address] 5th [place] [address] [place] [address] Cristina Hernandez MD High risk medication use (Primary Dx); Seronegative rheumatoid arthritis (HCC); Paresthesia of left upper extremity; Paresthesia of right upper extremity 12/14/2024 11:00 AM CDT Ancillary Procedure [facility] Vascular Lab at the [facility] [address] [place] [address] 8th [place] [address] [place] [address] Type II diabetes mellitus with peripheral circulatory disorder (HCC) from Last 3 Months Immunizations Immunization Administration [...] History Medical History Date Comments Crohn disease ([facility]) 1999 diet restric tion, no medications needed Depression with anxiety 2015 High cholesterol 2011 Jaundice 1971 Kidney stone 1993 History of sinus problem 1960 Asthma Diabetes ([facility]) 1994 Colitis 2007 Chronic bronchitis ([facility]) 1965 Cataracts, both eyes 2019 Eye inflammation 2020 Parkinson's disease ([facility]) 2019 Thrombocytopenia 1991 Family History Medical History Relation Name Comments Cancer Mother Relation Name Status Comments Mother Social History Tobacco Use Types Packs/Day Years Used Date Smoking Tobacco: Former Cigarettes Q uit: 1990 Smokeless Tobacco: Never Tobacco Cessation:Counseling Given: Not [...] on file 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 Gender Identity Not on file Sexual Orientation Not on file Obstetrics History Last Filed Vital Signs Vital Sign Reading Time Taken Comments Blood Pressure 133/75 01/17/2025 11:13 AM CDT Pulse 77 01/04/2025 9:28 AM CDT Temperature 36.3 C (97.4 F) 01/04/2025 9:28 AM CDT Respiratory Rate 20 10/13/2024 9:30 AM CRIME LAB TECHNICIAN Oxygen Saturation 96% 12/01/2024 10:49 AM CDT [...] Lipid Panel 10/15/2023 10/14/2022, 04/20/2019 Covid-19 Vaccine (4 - 2023-2 5 season) 2024 04/27/2021, 10/26/2020, 10/05/2020 Influenza Vaccine (#1) 2025 , 05/18/2021, 05/10/2020, Additional history exists eGFR 01/04/2026 01/04/2025, 08/11, 04/21/2024, Additional history exists DTaP/Tdap/Td Vaccine (4 - Td or Tdap) 07/07/2034 07/07/2024, 11/26/2022, 06/15/2010 Hepatitis C Screening Completed 01/02/2021 Pneumococcal vaccine 65+ Completed 11/26/2022 Zoster Vaccine Completed 09/10/2024, 07/07/2024 Procedures Procedure [...] (HCC) LIPID PANEL Routine 10/14/2022 12:38 PM CRIME LAB TECHNICIAN Chest pain, unspecified type High risk medication [...] Yellow Yellow Clarity, ur Clear Clear [facility] Specific gravity, ur >1.042(H) 1.003 - 1.030 [facility] pH, urine 6.0 [facility] Comment: Interpretive Data U rine pH is affected by diet, medications, systemic acid-base disturbances, and renal tubular function. pH may affect urinary stone formation. For example, urine pH below 6.0 may help reduce the tendency for calcium phosphate stones and pH greater than 6.0 may reduce the tendency for uric acid stone formation. Source: [facility] [employer] Current Interpretive Data was last revised on 2017 Protein, ur ql Negative Negative [facility] Glucose, ur ql 4+(A) Negative [facility] Ketones, ur Negative Negative [facility] Bilirubin, ur Negative Negative [facility] Blood, ur Negative Negative [facility] Urobilinogen, ur <2.0 <2.0 mg/dL [facility] Nitrite, ur Negative Negative [facility] Leukocyte esterase, ur Negative Negative [facility] UA reflex comment Reflex conditions for microscopic UA and culture not met. [facility] Urine, clean voided 01/04/2025 10:49 AM CDT 01/04/2025 2:00 PM CDT Cristina Hernandez MD LAB MICROBIOLOGY - GENERAL ORDER RAYMOND Final Result [facility] [place] [address] * (ABNORMAL) CBC with auto differential (01/04/2025 [...] ORDERABLES Final Resul t Performing Organization Address [facility] de Phone Number [facility] * Protein / creatinine ratio, urine, random (01/04/2025 10:49 AM CDT) Protein, ur, quant 6.5 mg/dL Comment: Interpretive Data No reference range established. Current interpretive data was last revised 2018. Creatinine Ur 46.2 mg/dL [facility] Comment: Interpretive Data No reference range established. Current interpretive data was last revised 2018. Protein/creatinin e ratio 140.7 0.0 - 180.0 mg/g CR [facility] Urine 01/04/2025 10:4 9 AM CDT 01/04/2025 2:00 PM CDT Cristina Hernandez MD LAB URINE ORDERABLES Final Resul t Performing Organization Address [facility] de Phone Number [facility] [place] [address] * (ABNORMAL) Erythrocyte sedimentation rate (01/04/2025 10:49 AM CDT) Erythrocyte Sedimentation Rate 20(H) <20 mm/hr [facility] Blood 01/04/2025 10:4 9 AM CDT 01/04/2025 11:08 AM CDT Cristina Hernandez MD LAB BLOOD ORDERABLES Final Resul t Performing Organization Address [facility] de Phone Number [facility] * [...] AM CDT Narrative 12/14/2024 10:[address] [facility] - Department of Vascular Surgery, Vascular Laboratory [address] [place] [address] Lower Extremity Arterial Doppler Report Patient Name: REKHA MONROE : 1955 Study Date: 12/14/2024 10:42:00 AM Gender: M Tech: Shonna Worley Location: [facility] Provider: JULIUS JARRETT Quality: Adequate Order Provider: [...] mmHg Lt Brachial Pressure 129 mmHg Rt CONTINUITY TESTER Pressure 146 mmHg Lt CONTINUITY TESTER Pressure 144 mmHg Rt DPA Pressure 145 mmHg Lt DPA Pressure 136 mmHg Rt 1st Digit Pressure 180 mmHg Lt 1st Digit Pressure 144 mmHg Rt PT PRECIOUS Resting 1.13 Lt PT PRECIOUS Resting 1.12 Rt AT PRECIOUS Resting 1.12 Lt AT PRECIOUS Resting 1.05 Rt Digit/Arm Index 1.4 Lt Digit/Arm Index 1.12 Right Value Units Left Value Units FINDINGS: Performing Group Dynamics Instructor: Shonna Worley RVT, [place]. [facility] student Ashley Moctezuma. Right All [...] Note Rashad Alba MD - 12/14/2024 [facility] - Department of Vascular Surgery,Vascular Laboratory [address] [place], [place] [id number] Lower Extremity Arterial Doppler Report Patient Name: REKHA MONROE : 1955 Study Date: 12/14/2024 10:42:00 AM Gender: M Tech: Shonna Worley Location: [facility] Provider: JULIUS JARRETT Quality: Adequate Order Provider: [...] mmHg Lt Brachial Pressure 129 mmHg Rt CONTINUITY TESTER Pressure 146 mmHg Lt CONTINUITY TESTER Pressure 144 mmHg Rt DPA Pressure 145 mmHg Lt DPA Pressure 136 mmHg Rt 1st Digit Pressure 180 mmHg Lt 1st Digit Pressure 144 mmHg Rt PT PRECIOUS Resting 1.13 Lt PT PRECIOUS Resting 1.12 Rt AT PRECIOUS Resting 1.12 Lt AT PRECIOUS Resting 1.05 Rt Digit/Arm Index 1.4 Lt Digit/Arm Index 1.12 Right Value Units Left Value Units FINDINGS: Performing Group Dynamics Instructor: Shonna Worley RVT, [place]. [facility] student Ashley Moctezuma. Right All [...] 12/14/2024 8:43:15 PM CDT us Julius Jarrett DP IMG US PROCEDURES Final R esult * Lipid panel (10/14/2022 12:38 PM CRIME LAB TECHNICIAN) Cholesterol 140 30 - 199 mg/dL [facility] [...] on 2018. HDL 59 >=40 mg/dL [facility] Comment: Interpretive Data Ages < or [...] 2018. LDL, calculated 61 <=129 mg/dL [facility] Comment: Interpretive Data Ages < or [...] revised on 2018. Non-HDL Cholesterol 81 mg/dL [facility] Comment: Interpretive Data Ages < or [...] last revised on 2018. Chol/HDL ratio 2 [facility] Blood 10/14/2022 12:3 8 PM CRIME LAB TECHNICIAN 10/14/2022 12:54 PM CRIME LAB TECHNICIAN Tito Costello MD LAB BLOOD ORDERABLES Final Result Performing Organization Address [facility] de Phone Number [facility] [place] [address] * Hepatitis panel, acute (01/02/2021 10:32 AM CDT) Pathologist [facility] Hep A IgM Nonreactive Nonreactive [facility] Comment: Interpretive Data: If Hep A IgM Ab is reported as Equivocal, a new sample should be drawn in two weeks for testing. Current interpretive data was last revised on 19. Hep B core IgM Nonreactive Nonreactive [facility] Comment: Interpretive Data If HepB Core IgM Ab is reported as Equivocal, a new sample should be drawn in two weeks for testing. Current interpretive data was last revised on 19. Hep C Ab Nonreactive Nonreactive [facility] Comment:Antibodies to HCV no t detected. Does NOT exclude the possibility of recent exposure to HCV. HepBsAg Nonreactive Nonreactive [facility] Blood specimen (specimen) 01/02/2021 10:32 AM CDT 01/02/2021 12:37 PM CDT Cristina Hernandez MD LAB MICROBIOLOGY - GENERAL ORDER RAYMOND Edited Result - Final Performing Organization Address [facility] de Phone Number [facility] [place] [address] * (ABNORMAL) Hemoglobin A1c (04/20/2019 12:26 PM CDT) Hgb A1C 6.1(H) 4.0 - 5.6 % [facility] Estimated Average Glucose 128 mg/dL [facility] Comment: The ADA recommends reporting an estimated Average Glucose (eAG) with all Hemoglobin A1c results using the equation derived from a study of 507 normal and diabetic adults. Minority populations were underrepresented and children were not included. (Diabetes Care 31:8533-8130, 2008). The eAG is not equivalent to a fasting glucose. Blood specimen (specimen) 04/20/2019 12:26 PM CDT 04/20/2019 12:50 PM CDT us Tito Costello MD LAB BLOOD ORDERABLES Final Result [facility] [address] [place] [address] from Last 3 Months or Most Recently Relevant to Health Maintenance Insurance Cynny MEDICARE MEDICARE [facility] MEDICARE FOR LIFE Care Teams Supervisor Agricultural Education Relationship Specialty Start Date End Date Migdalia Pfeiffer MD [address] [place] [address] [place] [address] PCP - General Internal Medicine 12/01/24
--- OUTSIDE RECORDS SUMMARY | 2025-03-15 11:54 | XMS_ITS | Encounter Summary ---
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
--- OUTSIDE RECORDS SUMMARY | 2025-03-15 11:54 | XMS_ITS | Encounter Summary ---
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 Answer Date of Assessment Author No 11/16/2015 2:15 PM CDT Becky Marino RN * Is person blind or have serious difficulty seeing? Answer Date of Assessment Author No 11/16/2015 2:15 PM CDT Becky Marnio RN * Does person have serious difficulty [...] Description 04/08/2025 10:00 AM CDT Office Visit [address] [address] [place] [address] [address] [facility] [place] [address] 09/07/2025 10:00 AM ASSOCIATE PROFESSOR OF SOCIOLOGY Office Visit [address] [address] [place] [address] [place] [address] documented as of this encounter Visit Diagnoses Not on filedocumented in this encounter Care Teams Sanitary Napkin Machine Tender Relationship Specialty Start Date End Date John Samuels MD [facility] [address] [place] [address] PCP - General Internal Medicine 05/11/15 06/29/20 Rianna Ambriz DO PCP - General Student Resident 06/30/20 06/30/20 John Samuels MD [facility] [address] [place] [address] PCP - General 07/01/20 02/21/21 Rianna Ambriz DO PCP - General Student Resident 02/22/21 03/13/21 Koko Sol DO [address] [place] [id number] PCP - General Internal Medicine 02/11/24 Arina Dobbins, RN Manager Strategic Development 05/11/15 documented as of this encounter
--- OUTSIDE RECORDS SUMMARY | 2025-03-15 11:54 | XMS_ITS | Encounter Summary ---
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
--- OUTSIDE RECORDS SUMMARY | 2025-03-15 11:54 | XMS_ITS | Clinical Summary ---
Author Organization [facility] Address [address] [place] [address] Care Team Providers Care Organisational Psychologist Name Role Phone Migdalia Pfeiffer MD Primary Care Provider [phone] Allergies Active Allergy Reactions Criticality Noted Date [...] Shortness of breath or Wheezing. 4 Active Active Problems Problem Noted Date Diagnosed Date Hypervascular lesion of urinary bladder 01/19/20 25 Encounters Date Type Department Care Team Description 01/18/2025 8:01 AM CDT Anesthesia Event [facility] [place] [address] Arturo Lindsay MD Jarvis, Brittany L, JESSA 01/18/2025 7:30 AM CDT - 01/18/2025 8:25 AM CDT Surgery [facility] [place] [address] Rekha Santiago MD CYSTOSCOPY WITH BLADDER BIOPSY AND FULGURATION 01/18/2025 5:42 AM CDT - 01/18/2025 10:30 AM CDT 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 Gender Identity Not on file Sexual Orientation [...] C Completed 07/24/2015 AAA SCREENING Completed 03/13/2021, 10/2020, 07/23/2015, Additional history exists Pneumococcal Vaccine: 50+ [...] Case Notes SCHED BY FAX ON 12/17/24 [employer] PHONE ASSESS CYSTOURETHROSCOPY,BIO PSY 01/18/2025 8:01 AM CDT GROSS HEMATURIA; FREQUENCY OF MICTURITION; LESION OF BLADDER R31.0; N28.89; N40.1 Case Notes SCHED BY FAX ON 12/17/24 [employer] PHONE ASSESS PROCEDURE GENERIC 01/18/2025 7:1 0 [...] - 99 mg/dL 01/18/2025 8:46 AM CDT [facility] 01/18/2025 8:45 AM CDT us Rekha Santiago MD POCT ORDERABLES - DEVICE Final Result [facility] [address] [place] [address], [place] [phone] * PROCEDURE GENERIC (01/18/2025 7:10 AM CDT) us Rekha Santiago MD [facility] Final R esult * ECG 12 lead (01/18/2025 6:47 AM CDT) 01/18/2025 6:47 AM CDT Narrative [facility]- [facility] - 01/18/2025 8:33 PM CDT [address] Test Date: 2025-01-18 Pat Name: [facility] Department: 40 Room: ODS 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1955 Requested By: ARTURO LINDSAY Order Number: [id number] Reading : Markell Long Measurements Intervals [place] Rate: 76 P: 26 [place]: 156 QRS: 19 QRSD: 154 T: 19 QT: 462 QTc: 520 Interpretive Statements SINUS RHYTHM RIGHT BUNDLE BRANCH BLOCK [120+ ms QRS DURATION, UPRIGHT V1, 40+ ms S IN I/aVL/V4/V5/V6] No previous ECG available for comparison Procedure Note Markell Long MD - 01/18/[id number] Test Date: 2025-01-18 Pat Name: [facility] Department: 40 Room: ODS 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 ([place] RAD * Pathology (01/18/2025 12:00 AM CDT) PATHOLOGY [facility] Department of Laboratory Medicine [address] [place] [address] , extension [phone] Pathology Report Surgical Pathology Report Name: REKHA PLATA Specimen #: [id number] Age: 5 1955 (Age: 70) Location: [facility] Sex: M Procedure Date: 01/18/2025 Hospital #: [id number] Date Received: 01/18/2025 Date Reported: 01/19/2025 Provider: [...] interpretation, and sign out were performed at [facility], [address] [place] [address]. Electronically Signed Out GENESIS TOMPKINS MD [facility] TISSUE URINARY BLADDER STRUCTURE / Unknown 01/18/2025 7:08 AM CDT us Rekha Santiago MD PATHOLOGY/CYTOLOGY ORDERA BLES Final Result Performing Organization Address [facility]/ZIP Co de Phone Number [facility] [address] [place] [address], [phone] * (ABNORMAL) BASIC METABOLIC PANEL (01/12/2025 2:49 PM CDT) GLUCOSE 178(H) 70 - 99 MG/DL 01/12/2025 3:54 PM CDT [facility] BUN 12 7 - 18 MG/DL 01/12/2025 3:54 PM CDT [facility] CREATININE S/P/B 0.72 0.7 - 1.3 MG/DL 01/12/2025 3:54 PM CDT [facility] SODIUM S/P/B 140 136 - 145 MMOL/L 01/12/2025 3:54 PM CDT [facility] POTASSIUM S/P/B 3.6 3.5 - 5.1 MMOL/L 01/12/2025 3:54 PM CDT [facility] CHLORIDE S/P/B 106 97 - 115 MMOL/L 01/12/2025 3:54 PM CDT [facility] CO2 26.4 21 - 32 MMOL/L 01/12/2025 3:54 PM CDT [facility] CALCIUM S/P/B 9.6 8.5 - 10.1 MG/DL 01/12/2025 3:54 PM CDT [facility] ANION GAP 7.6 2 - 10 MMOL/L 01/12/2025 3:54 PM CDT [facility] BUN CREATININE RATIO 16.7 6 - 26 01/12/2025 3:54 PM CDT [facility] GFR ESTIMATE >90 >90 ML/MIN/1.7 3 M2 01/12/2025 3:54 PM T [facility] Comment: NOTE: eGFR is not [...] Rekha Santiago MD LABORATORY Final Res ult [facility] [address] [place] [address], [place] [phone] * (ABNORMAL) URINALYSIS (01/12/2025 2:47 PM CDT) SPECIMEN TYPE URINE CLEAN CATCH 01/12/2025 2:47 PM CDT [facility] COLOR (U) LIGHT YELLOW 01/12/2025 4:48 PM CDT [facility] TRANSPARENCY CLEAR 01/12/2025 4:48 PM CDT [facility] SPECIFIC GRAVITY (U) 1.042(H) 1.001 - 1.030 01/12/2025 4:48 PM CDT [facility] U PH 6.0 5.0 - 9.0 01/12/2025 4:48 PM CDT [facility] LEUKOCYTES (U) NEGATIVE NEGATIVE 01/12/2025 4:48 PM CDT [facility] NITRITES NEGATIVE NEGATIVE 01/12/2025 4:48 PM CDT [facility] PROTEIN RANDOM (U) NEGATIVE <30 MG/DL 01/12/2025 4:48 PM CDT [facility] GLUCOSE (U) >1000(A) NORMAL MG/DL 01/12/2025 4:48 PM CDT [facility] KETONES MG/DL (U) NEGATIVE NEGATIVE MG/DL 01/12/2025 4:48 PM CDT [facility] UROBILINOGEN NORMAL NORMAL MG/DL 01/12/2025 4:48 PM CDT [facility] BILIRUBIN (U) NEGATIVE NEGATIVE MG/DL 01/12/2025 4:48 PM CDT [facility] BLOOD (U) NEGATIVE NEGATIVE 01/12/2025 4:48 PM CDT [facility] URINE SPECIMEN OBTAINED BY CLEAN CATCH PROCEDURE / Unknown 01/12/2025 2:47 PM CDT Rekha Santiago MD URINE ORDERABLES Final Re sult [facility] [address] [place] [address], [place] [phone] * URINE BACTERIA CULTURE (01/12/2025 2:47 PM CDT) SPEC DESCRIPTION URINE CLEAN CATCH 01/12/2025 2:47 PM CDT [facility] SPECIAL REQUESTS NO SPECIAL REQUEST 01/12/2025 2:47 PM CDT [facility] CULTURE RESULT NO GROWTH 2 DAYS 01/14/2025 9:11 AM CDT [facility] URINE SPECIMEN OBTAINED BY CLEAN CATCH PROCEDURE / Unknown 01/12/2025 2:47 PM CDT 01/12/2025 2:49 PM CDT us Rekha Santiago MD MICROBIOLOGY - GENERAL OR DERABLES Final Result [facility] [address] [place] [address], [place] [phone] * PTT, PARTIAL THROMBOPLASTIN TIME (01/12/2025 2:41 PM CDT) PTT 36.2 25.1 - 36.5 SEC 01/12/2025 4:01 PM CDT [facility] 01/12/2025 2:41 PM CDT us Rekha Santiago MD LABORATORY Final Res ult Performing Organization Address City/[facility]/ZIP Co de Phone Number [facility] [address] [place] [address], [place] [phone] * (ABNORMAL) PROTIME/INR, VENOUS (01/12/2025 2:41 PM CDT) PROTIME 13.3(H) 10.2 - 12.9 SEC 01/12/2025 4:01 PM CDT [facility] INR 1.2 01/12/2025 4:01 PM CDT [facility] Comment: Recommended INR Therapeutic Goals: 2.0-3.0 Routine Therapy 2.5-3.5 Mechanical Prosthetic Valves (High Risk) 01/12/2025 2:41 PM CDT Rekha Santiago MD LABORATORY Final Res ult Performing Organization Address [facility] Co de Phone Number [facility] [address] [place] [address], [place] [phone] * (ABNORMAL) CBC W/DIFF AUTOMATED (01/12/2025 2:41 PM CDT) WBC 4.90 4.5 - 11.0 x10'3/uL 01/12/2025 3:40 PM CDT [facility] RBC 4.97 4.70 - 6.10 x10'6/uL 01/12/2025 3:40 PM CDT [facility] HGB 15.5 14.0 - 18.0 G/DL 01/12/2025 3:40 PM CDT [facility] HCT 46.3 43.0 - 54.0 % 01/12/2025 3:40 PM CDT [facility] MCV 93.2 80.0 - 94.0 FL 01/12/2025 3:40 PM CDT [facility] MCH 31.2(H) 27.0 - 31.0 PG 01/12/2025 3:40 PM CDT [facility] MCHC 33.5 32.0 - 36.0 G/DL 01/12/2025 3:40 PM CDT [facility] RDW 15.0(H) 11.5 - 14.5 % 01/12/2025 3:40 PM CDT [facility] PLT 103(L) 130 - 400 x10'3/uL 01/12/2025 3:40 PM CDT [facility] MPV 11.5 9.3 - 12.2 FL 01/12/2025 3:40 PM CDT [facility] DIFFERENTIAL TYPE AUTOMATED DIFFERENTIAL 01/12/2025 3:40 PM CDT [facility] NEUTROPHILS % 49.4 % 01/12/2025 3:40 PM CDT [facility] LYMPHOCYTES % 33.7 % 01/12/2025 3:40 PM CDT [facility] MONOCYTES % 9.8 % 01/12/2025 3:40 PM CDT [facility] EOSINOPHILS 6.3 % 01/12/2025 3:40 PM CDT [facility] BASOPHILS 0.4 % 01/12/2025 3:40 PM CDT [facility] IMMATURE GRANS % 0.4 % 01/13/20 3:40 PM CDT [facility] ABS. NEUTROPHILS 2.42 1.80 - 7.70 x10'3/uL 01/12/2025 3:40 PM CDT [facility] ABS. LYMPHOCYTES 1.65 1.00 - 4.80 x10'3/uL 01/12/2025 3:40 PM CDT [facility] ABS. MONOCYTES 0.48 0.30 - 0.82 x10'3/uL 01/12/2025 3:40 PM CDT [facility] ABS. EOSINOPHILS 0.31 0.04 - 0.54 x10'3/uL 01/12/2025 3:40 PM CDT [facility] ABS. BASOPHILS 0.02 0.01 - 0.08 x10'3/uL 01/12/2025 3:40 PM CDT [facility] ABS. IMMATURE GRANULOCYTES 0.02 0.00 - 0.49 x10'3/uL 01/12/2025 3:40 PM CDT [facility] 01/12/2025 2:41 PM CDT Rekha Satniago MD LABORATORY Final Res ult [facility] [address] [place] [address], from Last 3 Months Insurance [employer] Care Teams Organisational Psychologist Relationship Specialty Start Date End Date Migdalia Pfeiffer MD [address] [place] [address] PCP - General INTERNAL MEDICINE 01/12/25
== END 2025-03-15 12:10 | disposition home or self-care (01) ==
PROVIDERS: Emergency Provider Emergency Medicine
DX: N39.0 Urinary tract infection, site not specified (principal); E11.9 Type 2 diabetes mellitus without complications; G20.A1 Parkinson's disease without dyskinesia, without mention of fluctuations; J45.909 Unspecified asthma, uncomplicated; K50.90 Crohn's disease, unspecified, without complications; Z87.891 Personal history of nicotine dependence
CPT/HCPCS: 81001; 99283

== ENCOUNTER 2025-05-28 14:36 | Inpatient (IN) | payer MEDICARE, OTHER, SELFPAY ==
[2025-05-28] VITALS (27 sets, daily range): BP systolic 125–143; BP diastolic 57–77; PULSE 60–96; RESP 15–18; TEMP 36.3–36.9; O2SAT 92–99; BMI 29.7
--- NOTE | ~2025-05-28 | CT_ITS ---
Erwin Monroe EXAMINATION: CT abdomen pelvis w con COMPARISON: None HISTORY: LLQ abdominal pain, diarrhea x1 week. Acute pancreatitis TECHNIQUE: Axial images were obtained through the abdomen, pelvis post administration of IV contrast. Oral contrast was also administered. Coronal reconstruction images were obtained from the axial views. CT scan performed using dose optimization techniques including the following automated exposure control; adjustment of mA and/or kV; use of iterative reconstruction technique. Automatic exposure control was used to reduce radiation dose. Permanent radiation dose record is archived to PACS. FINDINGS: CT abdomen: LUNG BASES: The lung bases are clear. The visualized portions of the heart and pericardium are unremarkable. LIVER: There are cirrhotic changes of the liver with nodularity of the liver contours and heterogeneity of the liver. The main portal vein is patent. There is no intrahepatic biliary duct dilatation. SPLEEN: The spleen is enlarged with multiple collateral vessels noted consistent with portal venous hypertension.. KIDNEYS: Right Kidney: Right kidney there are simple appearing renal cysts the largest within the mid to superior pole measuring 6 x 7 cm. Left Kidney: Left kidney there are subcentimeter probable renal cysts. ADRENAL GLANDS: Unremarkable. PANCREAS: Mild atrophy of the pancreas. GALLBLADDER/BILIARY: The gallbladder is not identified. STOMACH AND ESOPHAGUS: Stomach appears decompressed. BOWEL/MESENTERY: There is thickening noted of the descending colon consistent with colitis, no perforation or abscess. No diverticulitis. Moderate fecal content. Appendix normal. Mesentery normal. No dilated small bowel loops. ADENOPATHY/RETROPERITONEUM: No lymphadenopathy. AORTA/VASCULATURE: Normal caliber aorta. FREE FLUID OR FREE AIR: Trace free fluid.. CT pelvis: SOLID ORGANS/REPRODUCTIVE: Prostate is enlarged with a heterogeneous appearance correlate with PSA and prostate ultrasound. BLADDER: Circumferential thickening of the bladder wall with perivesicular stranding. OSSEOUS STRUCTURES: No acute osseous abnormality.No suspicious lesions. OVERLYING SOFT TISSUES: Unremarkable. IMPRESSION: 1. Cirrhotic changes of the liver with portal venous hypertension and splenomegaly. 2. Probable colitis of the descending colon likely infectious in nature. 3. Cystitis. Reviewed, dictated and finalized at location P. IMPRESSION: 1. Cirrhotic changes of the liver with portal venous hypertension and splenomeg adeline. 2. Probable colitis of the descending colon likely infectious in nature. 3. Cystitis.
--- OUTSIDE RECORDS SUMMARY | 2025-05-28 14:39 | XMS_ITS | Encounter Summary ---
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 Gender Identity Not on file Sexual Orientation Not on file documented as of this encounter Functional Status * Calculated C-SSRS Risk Score (Lifetime/Recent) Answer Date of Assessment Author Status No Risk Indicated 01/18/2025 7:15 AM Veto Avila RN Active * [place] Suicide Severity Rating Scale (Screener/Recent Self-Report) Question [...] BASIC METABOLIC PANEL (01/12/2025 2:49 PM CDT) [facility] GLUCOSE 178(H) 70 - 99 MG/DL 01/12/2025 3:54 PM CDT [facility] BUN 12 7 - 18 MG/DL 01/12/2025 3:54 PM CDT [facility] CREATININE S/P/B 0.72 0.7 - 1.3 MG/DL 01/12/2025 3:54 PM CDT [facility] SODIUM S/P/B 140 136 - 145 MMOL/L 01/12/2025 3:54 PM CDT [facility] POTASSIUM S/P/B 3.6 3.5 - 5.1 MMOL/L 01/12/2025 3:54 PM CDT [facility] CHLORIDE S/P/B 106 97 - 115 MMOL/L 01/12/2025 3:54 PM CDT [facility] CO2 26.4 21 - 32 MMOL/L 01/12/2025 3:54 PM CDT [facility] CALCIUM S/P/B 9.6 8.5 - 10.1 MG/DL 01/12/2025 3:54 PM CDT [facility] ANION GAP 7.6 2 - 10 MMOL/L 01/12/2025 3:54 PM CDT [facility] BUN CREATININE RATIO 16.7 6 - 26 01/12/2025 3:54 PM CDT [facility] GFR ESTIMATE >90 >90 ML/MIN/1.7 3 M2 01/12/2025 3:54 PM CDT [facility] Comment: NOTE: eGFR is not [...] Erwin Loyola MD LABORATORY Final Res ult [facility] [address] [place] [address], [place] [phone] * (ABNORMAL) URINALYSIS (01/12/2025 2:47 PM CDT) SPECIMEN TYPE URINE CLEAN CATCH 01/12/2025 2:47 PM CDT [facility] COLOR (U) LIGHT YELLOW 01/12/2025 4:48 PM CDT [facility] TRANSPARENCY CLEAR 01/12/2025 4:48 PM CDT [facility] SPECIFIC GRAVITY (U) 1.042(H) 1.001 - 1.030 01/12/2025 4:48 PM CDT [facility] U PH 6.0 5.0 - 9.0 01/12/2025 4:48 PM CDT [facility] LEUKOCYTES (U) NEGATIVE NEGATIVE 01/12/2025 4:48 PM CDT [facility] NITRITES NEGATIVE NEGATIVE 01/12/2025 4:48 PM CDT [facility] PROTEIN RANDOM (U) NEGATIVE <30 MG/DL 01/12/2025 4:48 PM CDT [facility] GLUCOSE (U) >1000(A) NORMAL MG/DL 01/12/2025 4:48 PM CDT [facility] KETONES MG/DL (U) NEGATIVE NEGATIVE MG/DL 01/12/2025 4:48 PM CDT [facility] UROBILINOGEN NORMAL NORMAL MG/DL 01/12/2025 4:48 PM CDT [facility] BILIRUBIN (U) NEGATIVE NEGATIVE MG/DL 01/12/2025 4:48 PM CDT [facility] BLOOD (U) NEGATIVE NEGATIVE 01/12/2025 4:48 PM CDT [facility] URINE SPECIMEN OBTAINED BY CLEAN CATCH PROCEDURE / Unknown 01/12/2025 2:47 PM CDT us Erwin Loyola MD URINE ORDERABLES Final Re sult Performing Organization Address [facility]/ZIP Co de Phone Number [facility] [address] [place] [address], [place] [phone] * URINE BACTERIA CULTURE (01/12/2025 2:47 PM CDT) SPEC DESCRIPTION URINE CLEAN CATCH 01/12/2025 2:47 PM CDT [facility] SPECIAL REQUESTS NO SPECIAL REQUEST 01/12/2025 2:47 PM CDT [facility] CULTURE RESULT NO GROWTH 2 DAYS 01/14/2025 9:11 AM CDT [facility] URINE SPECIMEN OBTAINED BY CLEAN CATCH PROCEDURE / Unknown 01/12/2025 2:47 PM CDT 01/12/2025 2:49 PM CDT us Erwin Loyola MD MICROBIOLOGY - GENERAL OR DERABLES Final Result [facility] [address] [place] [address], [place] [phone] * PTT, PARTIAL THROMBOPLASTIN TIME (01/12/2025 2:41 PM CDT) PTT 36.2 25.1 - 36.5 SEC 01/12/2025 4:01 PM CDT [facility] 01/12/2025 2:41 PM CDT Erwin Loyola MD LABORATORY Final Res ult [facility] [address] [place] [address], [place] [phone] * (ABNORMAL) PROTIME/INR, VENOUS (01/12/2025 2:41 PM CDT) Pathologist [facility] PROTIME 13.3(H) 10.2 - 12.9 SEC 01/12/2025 4:01 PM CDT [facility] INR 1.2 01/12/2025 4:01 PM CDT [facility] Comment: Recommended INR Therapeutic Goals: 2.0-3.0 Routine Therapy 2.5-3.5 Mechanical Prosthetic Valves (High Risk) 01/12/2025 2:41 PM CDT Erwin Loyola MD LABORATORY Final Res ult [facility] [address] [place] [address], [place] [phone] * (ABNORMAL) CBC W/DIFF AUTOMATED (01/12/2025 2:41 PM CDT) WBC 4.90 4.5 - 11.0 x10'3/uL 01/12/2025 3:40 PM CDT [facility] RBC 4.97 4.70 - 6.10 x10'6/uL 01/12/2025 3:40 PM CDT [facility] HGB 15.5 14.0 - 18.0 G/DL 01/12/2025 3:40 PM CDT [facility] HCT 46.3 43.0 - 54.0 % 01/12/2025 3:40 PM CDT [facility] MCV 93.2 80.0 - 94.0 FL 01/12/2025 3:40 PM CDT [facility] MCH 31.2(H) 27.0 - 31.0 PG 01/12/2025 3:40 PM CDT [facility] MCHC 33.5 32.0 - 36.0 G/DL 01/12/2025 3:40 PM CDT [facility] RDW 15.0(H) 11.5 - 14.5 % 01/12/2025 3:40 PM CDT [facility] PLT 103(L) 130 - 400 x10'3/uL 01/12/2025 3:40 PM CDT [facility] MPV 11.5 9.3 - 12.2 FL 01/12/2025 3:40 PM CDT [facility] DIFFERENTIAL TYPE AUTOMATED DIFFERENTIAL 01/12/2025 3:40 PM CDT [facility] NEUTROPHILS % 49.4 % 01/12/2025 3:40 PM CDT [facility] LYMPHOCYTES % 33.7 % 01/12/2025 3:40 PM CDT [facility] MONOCYTES % 9.8 % 01/12/2025 3:40 PM CDT [facility] EOSINOPHILS 6.3 % 01/12/2025 3:40 PM CDT [facility] BASOPHILS 0.4 % 01/12/2025 3:40 PM CDT [facility] IMMATURE GRANS % 0.4 % 01/13/20 3:40 PM CDT [facility] ABS. NEUTROPHILS 2.42 1.80 - 7.70 x10'3/uL 01/12/2025 3:40 PM CDT [facility] ABS. LYMPHOCYTES 1.65 1.00 - 4.80 x10'3/uL 01/12/2025 3:40 PM CDT [facility] ABS. MONOCYTES 0.48 0.30 - 0.82 x10'3/uL 01/12/2025 3:40 PM CDT [facility] ABS. EOSINOPHILS 0.31 0.04 - 0.54 x10'3/uL 01/12/2025 3:40 PM CDT [facility] ABS. BASOPHILS 0.02 0.01 - 0.08 x10'3/uL 01/12/2025 3:40 PM CDT [facility] ABS. IMMATURE GRANULOCYTES 0.02 0.00 - 0.49 x10'3/uL 01/12/2025 3:40 PM CDT [facility] 01/12/2025 2:41 PM CDT Erwin Loyola MD LABORATORY Final Res ult [facility] [address] [place] [address], [place] [phone] documented in this encounter Visit Diagnoses Diagnosis Gross hematuria- Primary Frequency of micturition Urinary frequency Lesion of bladder Unspecified disorder of bladder documented in this encounter Care Teams Shuttle Veneering Supervisor Relationship Specialty Start Date End Date Migdalia Pfeiffer MD [address] [place] [address] PCP - General INTERNAL MEDICINE 01/12/25 documented as of this encounter
--- OUTSIDE RECORDS SUMMARY | 2025-05-28 14:40 | XMS_ITS | Clinical Summary ---
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 Gender Identity Not on file Sexual [...] Wellness Visit 2018 COVID-19 Vaccine ( season) 2025 04/21/2024, 05/26/2023, 02/21/2022, Additional history exists Influenza Adult (#1) 2025 04/30/2024, 03/11/2024, 05/10/2020, Additional history exists RSV Immunization or 60+ Years (1 - 1-dose 75+ series) 01/08/2028 DTaP, Tdap and Td Vaccines (4 - Td or Tdap) 07/07/2034 07/07/2024, 11/26/2022, 06/15/2010 Hepatitis C Completed 07/24/2015 AAA SCREENING Completed 03/13/2021, 0810/2020, 07/23/2015, Additional history exists Pneumococcal Vaccine: 50+ Years Completed 11/26/2022 Zoster Vaccines Completed 09/10/2024, 07/07/2024 Hepatitis A Vaccines Aged Out No long er eligible based on patient's age to complete this topic Meningococcal B Vaccine Aged Out No l onger eligible based on patient's age to complete this topic Meningococcal Vaccine Aged Out No francy ariel eligible based on patient's age to complete this topic RSV Immunizations Under 20 Months Aged Out No longer eligible based on patient's age to complete this topic Insurance [employer] Care Teams Angiography Nurse Relationship Specialty Start Date End Date Migdalia Pfeiffer MD [address] [place] [address] PCP - General INTERNAL MEDICINE 01/12/25
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
[2025-05-28] MEDS: SODIUM CHLORIDE 0.9% IV 1,000 ML 999 ML IV CONT ×2 (15:18→17:20)
[2025-05-28 15:21] LABS: Hematocrit 38.1 % (37.0-46.0); Hemoglobin 12.9 g/dL (12.4-15.3); Immature Platelet Fraction Pct 1.4 % (1.0-7.0); Mean Corpuscular HGB Conc 33.9 g/dL (32-36); Mean Corpuscular Hemoglobin 32.3 pg (27.0-31.0); Mean Corpuscular Volume 95.5 fL (78.0-102.0); Platelet Count Result 71 K/mm3 (150-420); Red Blood Count 3.99 M/mm3 (4.70-6.10); White Blood Count 3.4 K/mm3 (4.8-10.8)
--- OUTSIDE RECORDS SUMMARY | 2025-05-28 15:27 | XMS_ITS | Clinical Summary ---
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
--- OUTSIDE RECORDS SUMMARY | 2025-05-28 15:27 | XMS_ITS | Encounter Summary ---
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 OFFICER Gender Identity Not on file Sexual Orientation Not on file 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 Job End Date 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 Not on file Not on file 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 Not on file [...] Care Team (Late st Contact Info) Description 09/07/2025 10:00 AM NAVIGATION OFFICER Office Visit [facility] [address] [facility] [address] [place] [phone] [place] [address] [id number] documented as of this encounter Visit Diagnoses Not on filedocumented in this encounter Care Teams Lead Software Developer Relationship Specialty Start Date End Date John Samuels MD [facility] [address] [place] [phone] PCP - General Internal Medicine 05/11/15 06/29/20 Rianna Ambriz DO PCP - General Student Resident 06/30/20 06/30/20 John Samuels MD [facility] [address] [place] [phone] PCP - General 07/01/20 02/21/21 Rianna Ambriz DO PCP - General Student Resident 02/22/21 03/13/21 Koko Sol DO [address] [place] [address] PCP - General Internal Medicine 02/11/24 Arina Dobbins, RN Line Tender Flakeboard 05/11/15 documented as of this encounter
--- OUTSIDE RECORDS SUMMARY | 2025-05-28 15:27 | XMS_ITS | Encounter Summary ---
Author Organization [facility] Address [address] [facility] [place] [address] Care Team Providers Care Acid Strength Inspector Name Role Phone John Samuels MD Primary Care Provider [phone] Arina Dobbins RN Unavailable [phone] Rianna Ambriz DO Primary Care Provider Un available John Samuels MD Primary Care Provider [phone] Rianna Ambriz DO Primary Care Provider Un available Koko Sol DO Primary Care Provider [phone] Encounter Details Date Type Department Care Team [...] AM CDT Legal Sex Male 6:31 AM SWING TENDER Gender Identity Not on file Sexual Orientation Not on file 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 Job End Date 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 Not on file Not on 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 file Not [...] st Contact Info) Description 09/07/2025 10:00 AM SWING TENDER Office Visit [facility] [address] [facility] [address] [place] [phone] [place] [phone] [phone] documented as of this encounter Visit Diagnoses Not on filedocumented in this encounter Care Teams Acid Strength Inspector Relationship Specialty Start Date End Date John Samuels MD [facility] [address] [place] [phone] PCP - General Internal Medicine 05/11/15 06/29/20 Rianna Ambriz DO PCP - General Student Resident 06/30/20 06/30/20 John Samuels MD [facility] [address] [place] [phone] PCP - General 07/01/20 02/21/21 Rianna Ambriz DO PCP - General Student Resident 02/22/21 03/13/21 Koko Sol DO [address] [place] [address] PCP - General Internal Medicine 02/11/24 Arina Dobbins, RN Golf Course Patroller 05/11/15 documented as of this encounter
--- OUTSIDE RECORDS SUMMARY | 2025-05-28 15:27 | XMS_ITS | Encounter Summary ---
Author Organization [facility] Address [address] [place] [address] Phone Care Team Providers Care Diesel Dinkey Operator Name Role Phone Migdalia Pfeiffer MD Primary Care Provider [phone] Encounter Details Date Type Department Care Team (Late st Contact Info) Description 04/10/2025 Results Follow-Up [facility] Medicine Rheumatology [address] [facility] 5th [place] [address] [place] [address] Cristina Hernandez MD [address] [facility] [address] [address] [place] [address] CBC with auto differential, Comprehensive metabolic panel, CRP (acute phase), Erythrocyte sedimentation rate Social History Tobacco Use Types Packs/Day Years Used Date Smoking Tobacco: Former Cigarettes Q uit: 1989 Smokeless Tobacco: Never Alcohol Use Standard Drinks/Week [...] the money to buy more. Never true 04/13/20 25 Within the past 12 months, t he food you bought just didn't last and you didn't have money to get more. 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
--- OUTSIDE RECORDS SUMMARY | 2025-05-28 15:28 | XMS_ITS | Encounter Summary ---
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
--- OUTSIDE RECORDS SUMMARY | 2025-05-28 15:28 | XMS_ITS | Encounter Summary ---
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
--- OUTSIDE RECORDS SUMMARY | 2025-05-28 15:28 | XMS_ITS | Clinical Summary ---
Author Organization [facility] Address [address] [place] [address] Care Team Providers Care Fast Food Delivery Driver Name Role Phone Arina Dobbins RN Unavailable [phone] Koko Sol DO Primary Care Provider [phone] Source Comments [facility],non-owned Affiliates and Associated Physician Practices is amultiple site organization consisting of ambulatory clinics and hospital sitesin [place], [place]. This disclosure is being madepursuant to the Care Everywhere program and may not contain all information available regarding this patient. Last updated 18.[facility] Raiing Allergies Active Allergy Reactions Criticality Noted Date [...] fluticasone propionate (FLONASE) 50 MCG/ACT nasal spray Naselle 1 (one) spray into each nostril as [...] by mouth once daily 10/17/19 24 Active traMADol (Ultram) 50 MG tablet [...] daily 120 tablet 11 03/04/20 25 Active donepezil (Aricept) 10 MG tabletIndications: Memory loss Take 1 (one) tablet by mouth 2 times daily 180 tablet 3 04/27/20 25 Active Active Problems Problem Noted Date Diagnosed Date Gallstone pancreatitis 10/18/2015 Cellulitis 05/12/2015 Ulcer of left lower extremity 05/12/2015 Chest pain 05/08/2012 Thrombocytopenia, secondary 05/08/2012 Leukopenia 05/08/2012 DM (diabetes mellitus) type II, controlled, with peripheral vascular disorder 05/08/2012 Overview (11/08/2017): IMO update 11 09 2017 Venous insufficiency 05/08/2012 Hyperlipidemia 05/08/2012 Asthma 05/08/2012 Hypertension 05/08/2012 Encounters Date Type Department Care Team Description 04/27/[address] [place] [address] Kiran Beltran MD MEDICATION REFILL 03/04/2025 Refill [facility] [address] [facility] [address] [place] [address] Kiran Beltran MD MEDICATION REFILL from Last 3 Months Immunizations Immunization Administration Dates Next Due Covid MyCar[employer] primary monoval ent 12+ yr 0.3mL Purple [...] AM CDT Legal 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 Gender Identity Not on file Sexual Orientation Not on file 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 Job End Date 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 Not on file Not on 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 on file Not on file Not on file Last Filed Vital Signs Vital Sign Reading Time Taken Comments Blood Pressure 130/60 02/17/2025 11:10 AM CDT Pulse 85 02/17/2025 11:10 AM CDT Temperature 36.4 C (97.5 F) 04/13/2024 2:42 PM CDT Respiratory Rate 18 08/19/2024 10:03 AM CANDLE WRAPPING MACHINE OPERATOR Oxygen Saturation 97% 02/17/2025 11:10 AM CDT Inhaled Oxygen Concentration 40% 07/26/2015 4 :25 AM CANDLE WRAPPING MACHINE OPERATOR Weight 96.2 kg (212 lb) 02/17/2025 11:10 AM CDT Height 182.9 cm (6') 02/17/2025 11:10 AM CDT Body Mass Index 28.75 02/17/2025 11:10 AM CDT Plan of Treatment Upcoming Encounters Date Type Department Care Team (Late st Contact Info) Description 09/07/2025 10:00 AM CANDLE WRAPPING MACHINE OPERATOR Office Visit [facility] [address] [facility] [address] [place] [address] [place] [address] [facility] [address] [place] [address] Health Maintenance Due Date Last Done [...] (2 - Td or Tdap) 06/15/2020 06/15/2010 DEPRESSION SCREENING 08/11/2024 04/02/2024 DIABETES - URINE PROTEIN SCREENING 08/11/2024 COVID-19 VACCINE (3 - season) 2025 10/26/2020, 10/05/2020 INFLUENZA VACCINE (#1) 2025 , 05/25/2019, 06/02/2018, [...] ENDOSCOPY, COLON, DIAGNOSTIC Routine 08/28/2022 7:25 AM CANDLE WRAPPING MACHINE OPERATOR Rectal bleeding COMPREHENSIVE METABOLIC PANEL Routine 08/15/2022 12:20 PM CANDLE WRAPPING MACHINE OPERATOR Other cirrhosis of liver HEPATITIS C RNA QUANTITATIVE AM Draw 07/24/2015 2:43 AM CANDLE WRAPPING MACHINE OPERATOR HEMOGLOBIN A1C Routine 05/11/2015 6:59 AM CDT from Last 3 Months or Most Recently Relevant to Health Maintenance Results * ENDOSCOPY, COLON, DIAGNOSTIC (08/28/2022 7:25 AM CANDLE WRAPPING MACHINE OPERATOR) Report Endoscopy POC _ Patient Name: Rekha Sigala Procedure Date: 08/28/2022 7:25 AM Date of : 1955 Admit Type: Outpatient Age: 67 Gender: Male Ethnicity: Not or Race: White Attending MD: Declan Hurst MD _ Procedure: Colonoscopy Indications: Hematochezia Providers: Declan Hurst MD (Doctor), Chanel Ornelas RN, Phyllis Salazar, Player Manager Patient Profile: 67M presents for eval of rectal bleeding. last exam 4 yrs prior Referring MD: [address] [place] [address], Clinic (Referring MD) Medicines: Monitored Anesthesia Care [...] for surveillance. Procedure Code(s): --- Professional --- 65364, Colonoscopy, flexible; diagnostic, including collection of specimen(s) by brushing or washing, when performed (separate procedure) --- Technical --- 94304, Colonoscopy, flexible; diagnostic, including collection of specimen(s) by brushing or washing, when performed (separate procedure) Diagnosis Code(s): --- Professional --- K64.8, Other hemorrhoids K92.1, Melena (includes Hematochezia) --- Technical --- K64.8, Other hemorrhoids K92.1, Melena (includes Hematochezia) CPT copyright 2019 [employer]. All rights reserved. The codes documented in this report are preliminary and upon rn faculty review may be revised to meet current compliance requirements. Declan Hurst MD 08/28/2022 9:07:58 AM This report has been signed electronically. Number of Addenda: 0 Note Initiated On: 08/28/2022 7:25 AM [facility] ENDOSCOPY 08/28/2022 7:25 AM CANDLE WRAPPING MACHINE OPERATOR Narrative Procedure Note Declan Hurst MD - 08/28/2022 9:08 AM CST Colonoscopy Small int hemorrhoids Nl otherwise Psyllium Rpt 5 yrs us Declan Hurst MD GI PROCEDURE ORDERABLES Edited R esult - Final [facility] ENDOSCOPY * (ABNORMAL) COMPREHENSIVE METABOLIC PANEL (08/15/2022 12:20 PM CANDLE WRAPPING MACHINE OPERATOR) Glucose 110(H) 65 - 99 mg/dL [facility] [...] 46 U/L [facility] Comment: Test Performed at: [facility] [address] [place] [address] DEWAYNE SEBASTIAN DO,MPH Blood BLOOD SPECIMEN / Unknown 08/15/2022 12:20 PM CANDLE WRAPPING MACHINE OPERATOR 08/15/2022 12:21 PM CANDLE WRAPPING MACHINE OPERATOR Karla Galindo SHRIMP TRAWLER-DIVISION ENGINEER LAB - CHEMISTRY ORDER RAYMOND Final Result [facility] [address] [place] [address] * HEPATITIS C RNA QUANTITATIVE PCR (07/24/2015 2:43 AM CANDLE WRAPPING MACHINE OPERATOR) Hepatitis C Virus RNA Quantitative <15 IU/mL 07/26/2015 8:40 AM [facility]) Hepatitis C Virus RNA Log Quantitative <1.2 log IU 07/26/2015 8:40 AM [facility] ([facility]) Comment: INTERPRETIVE INFORMATION: Hepatitis C Virus [...] Not Detected Not Detected 07/26/2015 8:40 AM [facility] [employer] ([facility]) EER HCV See Note 07/26/2015 8:40 AM [facility] [employer] ([facility]) Comment: To download an enhanced report for this test go to: [email or web address] [email or web address] [email or web address] Blood specimen (specimen) BLOOD SPECIMEN / Unknown Lab Venipuncture / Unknown 07/24/2015 2:43 AM CANDLE WRAPPING MACHINE OPERATOR 07/24/2015 3:25 AM CANDLE WRAPPING MACHINE OPERATOR Scotty Castillo SHRIMP TRAWLER-DIVISION ENGINEER LAB - CHEMISTRY ORDERABLE S Final Result [facility] [employer] ([facility]) [address] * HEMOGLOBIN A1C (05/11/2015 6:59 AM CDT) Hemoglobin A1c 6.1 4.2 - 6.3 % 05/11/2015 8:36 AM CDT [facility] Estimated Average Glucose 128 mg/dL 05/11/2015 8:36 AM CDT [facility] Whole Blood BLOOD SPECIMEN WITH EDTA / Unknown Lab Venipuncture / Unknown 05/11/2015 6:59 AM CDT 05/11/2015 7:10 AM CDT Tamiko Mcclain SHRIMP TRAWLER-DIVISION ENGINEER LAB - CHEMISTRY ORDERABL ES Final Result Performing Organization Address City/[facility]/ZIP Co de Phone Number [facility] [address] [place] [address] from Last 3 Months or Most Recently Relevant to Health Maintenance Insurance MEDICARE MEDICARE Advance Directives Documents on File Type Date Recorded Patient Boxing Instructor Expl anation Adv Directive/Living Will/POA 11/20/2015 5:54 [...] 12:10 PM 05/08/2012 1:39 PM Care Teams Fast Food Delivery Driver Relationship Specialty Start Date End Date Koko Sol DO [address] [place] [address] PCP - General Internal Medicine 02/11/24 Arina Dobbins, RN Environmental Sampler 05/11/15
--- OUTSIDE RECORDS SUMMARY | 2025-05-28 15:28 | XMS_ITS | Clinical Summary ---
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
--- OUTSIDE RECORDS SUMMARY | 2025-05-28 15:28 | XMS_ITS | Encounter Summary ---
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 Gender Identity Not on file Sexual Orientation Not on file documented as of this encounter Functional Status * Calculated C-SSRS Risk Score (Lifetime/Recent) Answer Date of Assessment Author Status No Risk Indicated 01/18/2025 7:15 AM Veto Avila RN Active * Tillman Suicide Severity Rating Scale (Screener/Recent Self-Report) Question [...] BASIC METABOLIC PANEL (01/12/2025 2:49 PM CDT) [facility] GLUCOSE 178(H) 70 - 99 MG/DL 01/12/2025 3:54 PM CDT [facility] BUN 12 7 - 18 MG/DL 01/12/2025 3:54 PM CDT [facility] CREATININE S/P/B 0.72 0.7 - 1.3 MG/DL 01/12/2025 3:54 PM CDT [facility] SODIUM S/P/B 140 136 - 145 MMOL/L 01/12/2025 3:54 PM CDT [facility] POTASSIUM S/P/B 3.6 3.5 - 5.1 MMOL/L 01/12/2025 3:54 PM CDT [facility] CHLORIDE S/P/B 106 97 - 115 MMOL/L 01/12/2025 3:54 PM CDT [facility] CO2 26.4 21 - 32 MMOL/L 01/12/2025 3:54 PM CDT [facility] CALCIUM S/P/B 9.6 8.5 - 10.1 MG/DL 01/12/2025 3:54 PM CDT [facility] ANION GAP 7.6 2 - 10 MMOL/L 01/12/2025 3:54 PM CDT [facility] BUN CREATININE RATIO 16.7 6 - 26 01/12/2025 3:54 PM CDT [facility] GFR ESTIMATE >90 >90 ML/MIN/1.7 3 M2 01/12/2025 3:54 PM CDT [facility] Comment: NOTE: eGFR is not [...] Erwin Loyola MD LABORATORY Final Res ult [facility] [address] [place] [address], [place] [phone] * (ABNORMAL) URINALYSIS (01/12/2025 2:47 PM CDT) SPECIMEN TYPE URINE CLEAN CATCH 01/12/2025 2:47 PM CDT [facility] COLOR (U) LIGHT YELLOW 01/12/2025 4:48 PM CDT [facility] TRANSPARENCY CLEAR 01/12/2025 4:48 PM CDT [facility] SPECIFIC GRAVITY (U) 1.042(H) 1.001 - 1.030 01/12/2025 4:48 PM CDT [facility] U PH 6.0 5.0 - 9.0 01/12/2025 4:48 PM CDT [facility] LEUKOCYTES (U) NEGATIVE NEGATIVE 01/12/2025 4:48 PM CDT [facility] NITRITES NEGATIVE NEGATIVE 01/12/2025 4:48 PM CDT [facility] PROTEIN RANDOM (U) NEGATIVE <30 MG/DL 01/12/2025 4:48 PM CDT [facility] GLUCOSE (U) >1000(A) NORMAL MG/DL 01/12/2025 4:48 PM CDT [facility] KETONES MG/DL (U) NEGATIVE NEGATIVE MG/DL 01/12/2025 4:48 PM CDT [facility] UROBILINOGEN NORMAL NORMAL MG/DL 01/12/2025 4:48 PM CDT [facility] BILIRUBIN (U) NEGATIVE NEGATIVE MG/DL 01/12/2025 4:48 PM CDT [facility] BLOOD (U) NEGATIVE NEGATIVE 01/12/2025 4:48 PM CDT [facility] URINE SPECIMEN OBTAINED BY CLEAN CATCH PROCEDURE / Unknown 01/12/2025 2:47 PM CDT us Erwin Loyola MD URINE ORDERABLES Final Re sult Performing Organization Address [facility]/ZIP Co de Phone Number [facility] [address] [place] [address], [place] [phone] * URINE BACTERIA CULTURE (01/12/2025 2:47 PM CDT) SPEC DESCRIPTION URINE CLEAN CATCH 01/12/2025 2:47 PM CDT [facility] SPECIAL REQUESTS NO SPECIAL REQUEST 01/12/2025 2:47 PM CDT [facility] CULTURE RESULT NO GROWTH 2 DAYS 01/14/2025 9:11 AM CDT [facility] URINE SPECIMEN OBTAINED BY CLEAN CATCH PROCEDURE / Unknown 01/12/2025 2:47 PM CDT 01/12/2025 2:49 PM CDT us Erwin Loyola MD MICROBIOLOGY - GENERAL OR DERABLES Final Result [facility] [address] [place] [address], [place] [phone] * PTT, PARTIAL THROMBOPLASTIN TIME (01/12/2025 2:41 PM CDT) PTT 36.2 25.1 - 36.5 SEC 01/12/2025 4:01 PM CDT [facility] 01/12/2025 2:41 PM CDT Erwin Loyola MD LABORATORY Final Res ult [facility] [address] [place] [address], [place] [phone] * (ABNORMAL) PROTIME/INR, VENOUS (01/12/2025 2:41 PM CDT) Pathologist [facility] PROTIME 13.3(H) 10.2 - 12.9 SEC 01/12/2025 4:01 PM CDT [facility] INR 1.2 01/12/2025 4:01 PM CDT [facility] Comment: Recommended INR Therapeutic Goals: 2.0-3.0 Routine Therapy 2.5-3.5 Mechanical Prosthetic Valves (High Risk) 01/12/2025 2:41 PM CDT Erwin Loyola MD LABORATORY Final Res ult [facility] [address] [place] [address], [place] [phone] * (ABNORMAL) CBC W/DIFF AUTOMATED (01/12/2025 2:41 PM CDT) WBC 4.90 4.5 - 11.0 x10'3/uL 01/12/2025 3:40 PM CDT [facility] RBC 4.97 4.70 - 6.10 x10'6/uL 01/12/2025 3:40 PM CDT [facility] HGB 15.5 14.0 - 18.0 G/DL 01/12/2025 3:40 PM CDT [facility] HCT 46.3 43.0 - 54.0 % 01/12/2025 3:40 PM CDT [facility] MCV 93.2 80.0 - 94.0 FL 01/12/2025 3:40 PM CDT [facility] MCH 31.2(H) 27.0 - 31.0 PG 01/12/2025 3:40 PM CDT [facility] MCHC 33.5 32.0 - 36.0 G/DL 01/12/2025 3:40 PM CDT [facility] RDW 15.0(H) 11.5 - 14.5 % 01/12/2025 3:40 PM CDT [facility] PLT 103(L) 130 - 400 x10'3/uL 01/12/2025 3:40 PM CDT [facility] MPV 11.5 9.3 - 12.2 FL 01/12/2025 3:40 PM CDT [facility] DIFFERENTIAL TYPE AUTOMATED DIFFERENTIAL 01/12/2025 3:40 PM CDT [facility] NEUTROPHILS % 49.4 % 01/12/2025 3:40 PM CDT [facility] LYMPHOCYTES % 33.7 % 01/12/2025 3:40 PM CDT [facility] MONOCYTES % 9.8 % 01/12/2025 3:40 PM CDT [facility] EOSINOPHILS 6.3 % 01/12/2025 3:40 PM CDT [facility] BASOPHILS 0.4 % 01/12/2025 3:40 PM CDT [facility] IMMATURE GRANS % 0.4 % 01/13/20 3:40 PM CDT [facility] ABS. NEUTROPHILS 2.42 1.80 - 7.70 x10'3/uL 01/12/2025 3:40 PM CDT [facility] ABS. LYMPHOCYTES 1.65 1.00 - 4.80 x10'3/uL 01/12/2025 3:40 PM CDT [facility] ABS. MONOCYTES 0.48 0.30 - 0.82 x10'3/uL 01/12/2025 3:40 PM CDT [facility] ABS. EOSINOPHILS 0.31 0.04 - 0.54 x10'3/uL 01/12/2025 3:40 PM CDT [facility] ABS. BASOPHILS 0.02 0.01 - 0.08 x10'3/uL 01/12/2025 3:40 PM CDT [facility] ABS. IMMATURE GRANULOCYTES 0.02 0.00 - 0.49 x10'3/uL 01/12/2025 3:40 PM CDT [facility] 01/12/2025 2:41 PM CDT Erwin Loyola MD LABORATORY Final Res ult [facility] [address] [place] [address], [place] [phone] documented in this encounter Visit Diagnoses Diagnosis Gross hematuria- Primary Frequency of micturition Urinary frequency Lesion of bladder Unspecified disorder of bladder documented in this encounter Care Teams Utility Locator Relationship Specialty Start Date End Date Migdalia Pfeiffer MD [address] [place] [address] PCP - General INTERNAL MEDICINE 01/12/25 documented as of this encounter
--- OUTSIDE RECORDS SUMMARY | 2025-05-28 15:28 | XMS_ITS | Encounter Summary ---
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
[2025-05-28 15:33] LABS: Alanine Aminotransferase 12 U/L (6-50); Albumin Level 3.2 g/dL (3.5-5.1); Alkaline Phosphatase 141 U/L (38-126); Amylase 249 U/L (30-110); Anion Gap 6 mmol/L (4-12); Aspartate Amino Transferase 58 U/L (17-59); Bilirubin,Total 2.0 mg/dL (0.2-1.3); Blood Urea Nitrogen 9 mg/dL (9-20); Calcium 8.4 mg/dL (8.4-10.2); Carbon Dioxide 26 mmol/L (22-30); Chloride 106 mmol/L (98-107); Estimated CRCL calculation 132 ml/min; Estimated Glomerular Filt Rate > 60; Glucose 219 mg/dL (65-110); INR 1.1; Magnesium 1.9 mg/dL (1.6-2.3); Osmolality Calculated 291 mOsm/kg (285-295); Partial Thromboplastin Time 28.3 Sec (23.9-30.70); Potassium 4.0 mmol/L (3.4-5.0); Prothrombin Time 12.3 Seconds (9.50-12.1); Sodium 138 mmol/L (137-145); Total Protein 6.3 g/dL (6.3-8.2)
[2025-05-28 15:42] LABS: Band Neutrophils Percent 3 % (0-6); Basophils Absolute Manual 0.03 K/mm3 (0-0.1); Basophils Percent Manual 1 % (0-1); Eosinophils Absolute Manual 0.17 K/mm3 (0.02-0.50); Eosinophils Percent Manual 5 % (1-6); Lymphocytes Absolute Manual 0.37 K/mm3 (1.1-4.5); Lymphocytes Percent Manual 11 % (18-44); Metamyelocytes Percent 1 %; Monocytes Absolute Manual 0.37 K/mm3 (0.1-0.90); Monocytes Percent Manual 11 % (3-9); Neutrophils Absolute Manual 2.41 K/mm3 (1.3-6.7); Neutrophils Percent Manual 68 % (46-73); Total Cells Counted 100
[2025-05-28 15:43] LABS: Schistocytes None Seen
[2025-05-28 15:47] LABS: Lipase 3126 U/L (23-300)
[2025-05-28 16:09] LABS: Ammonia 69 umol/L (9-30)
[2025-05-28 16:12] LABS: Add Urine Microscopic? NO; Appearance Urine Clear (Clear); Glucose Urine UA 3+ (Negative); Leukocyte Esterase Ur Negative LEU/UL (Negative); Nitrate Urine Negative (Negative); Specific Grav Ur <= 1.005 (1.010-1.020)
[2025-05-28 16:56] LABS: Toxigenic C. Diff NEGATIVE (NEGATIVE)
--- NOTE | 2025-05-28 17:43 | PC.NURSE ---
Pt taking his home med Sinemet, so he does not get off his strict schedule. ERP aware and fine with pt taking his home dose of Sinemet.
[2025-05-28] MEDS: LOPERAMIDE HCL 2 MG CAPSULE 4 MG PO (18:15)
--- NOTE | 2025-05-28 19:19 | ADMGEN ---
This patient, Erwin Monroe, was admitted to 2nd Floor Room 210-1. Patient/family oriented to hospital policies and general routines including ID bracelet, bed and alarms, visiting hours, pain management, procedures, bathroom and other care routines, personal items, smoking policy, room service/diet, and visiting hours. Information on how to activate the Rapid Response Team has been discussed. Patient/Family are encouraged to report perceived risks to care and to ask questions if they do not understand what they are told or what they should do.
[2025-05-28] MEDS: SODIUM CHLORIDE 0.9% IV 1,000 ML 100 ML IV CONT (19:52)
[2025-05-28] MEDS: DIPHENOXYLATE/ATROPINE (*CRX) 2.5 MG TABLET 2 TABLET PO (21:42)
[2025-05-28] MEDS: LOPERAMIDE HCL 2 MG CAPSULE PO (21:42)
[2025-05-28] MEDS: ROSUVASTATIN 5 MG TABLET PO (21:42)
[2025-05-28] MEDS: CARBIDOPA/LEVODOPA 25/100 MG TABLET 1 TABLET PO (23:32)
--- NOTE | 2025-05-29 | CONSULT_PTH ---
PATIENT: Erwin Monroe LOC: [facility] U#:[id number] AGE/SX: 70/M ROOM: 210CHS RE05/29/[address]: Dae Schulz MD : 1955 BED: 1 DIS: 05/31/2025 SPEC #: [id number] RECD: 05/29/25 06:54 STATUS: PATRICIO REOleg #: [id number] CLAUDINE: 05/29/25 00:[address]: Anastacio Schulz DEPT: [facility] Consult RECD BY: Corazon Robbins MLT, ([facility]) ENTERED: 05/29/25 06:55 SP TYPE: Consult OTHR DR: [facility]ER[facility] ADMIN,MICHAEL Tissues: A - Peripheral Smear Procedures: Hematology Consult
[2025-05-29] MEDS: CARBIDOPA/LEVODOPA 25/100 MG TABLET 1 TABLET PO ×4 (05:36→23:59)
[2025-05-29] MEDS: traMADol HCL (*CRX) 50 MG TABLET PO ×2 (05:39→14:16)
[2025-05-29] MEDS: ONDANSETRON INJ 4 MG/2 ML VIAL IV PUSH (05:46)
[2025-05-29 06:12] LABS: Hematocrit 36.3 % (37.0-46.0); Hemoglobin 12.1 g/dL (12.4-15.3); Immature Platelet Fraction Pct 1.7 % (1.0-7.0); Mean Corpuscular HGB Conc 33.3 g/dL (32-36); Mean Corpuscular Hemoglobin 32.0 pg (27.0-31.0); Mean Corpuscular Volume 96.0 fL (78.0-102.0); Platelet Count Result 66 K/mm3 (150-420); Red Blood Count 3.78 M/mm3 (4.70-6.10); White Blood Count 3.3 K/mm3 (4.8-10.8)
[2025-05-29 06:37] LABS: Alanine Aminotransferase 20 U/L (6-50); Albumin Level 2.8 g/dL (3.5-5.1); Alkaline Phosphatase 121 U/L (38-126); Amylase 183 U/L (30-110); Anion Gap 3 mmol/L (4-12); Aspartate Amino Transferase 184 U/L (17-59); Bilirubin,Total 2.1 mg/dL (0.2-1.3); Blood Urea Nitrogen 6 mg/dL (9-20); Calcium 7.9 mg/dL (8.4-10.2); Carbon Dioxide 30 mmol/L (22-30); Chloride 107 mmol/L (98-107); Estimated CRCL calculation 127 ml/min; Estimated Glomerular Filt Rate > 60; Glucose 84 mg/dL (65-110); Lipase 1458 U/L (23-300); Osmolality Calculated 286 mOsm/kg (285-295); Potassium 3.7 mmol/L (3.4-5.0); Sodium 140 mmol/L (137-145); Total Protein 5.4 g/dL (6.3-8.2)
[2025-05-29 06:49] LABS: Band Neutrophils Percent 2 % (0-6); Basophils Absolute Manual 0.06 K/mm3 (0-0.1); Basophils Percent Manual 2 % (0-1); Eosinophils Absolute Manual 0.19 K/mm3 (0.02-0.50); Eosinophils Percent Manual 6 % (1-6); Lymphocytes Absolute Manual 0.85 K/mm3 (1.1-4.5); Lymphocytes Percent Manual 26 % (18-44); Monocytes Absolute Manual 0.46 K/mm3 (0.1-0.90); Monocytes Percent Manual 14 % (3-9); Neutrophils Absolute Manual 1.71 K/mm3 (1.3-6.7); Neutrophils Percent Manual 50 % (46-73); Total Cells Counted 100
[2025-05-29 07:49] LABS: Iron 66 ug/dL (49-181)
[2025-05-29 07:58] LABS: Percent Iron Saturation 25 % (20-50)
[2025-05-29] MEDS: SODIUM CHLORIDE 0.9% IV 1,000 ML 100 ML IV CONT ×2 (07:59→17:59)
[2025-05-29 08:00] VITALS: BP 130/60; PULSE 78; RESP 17; TEMP 36.3; O2SAT 95
[2025-05-29 08:25] LABS: Ferritin 46.60 ng/mL (11.1-264)
[2025-05-29] MEDS: GABAPENTIN 100 MG CAPSULE 200 MG PO ×3 (08:47→17:07)
[2025-05-29] MEDS: TAMSULOSIN HCL 0.4 MG CAPSULE PO (08:47)
[2025-05-29] MEDS: ACIDOPHILUS/BULGARICUS CHEWABLE TABLET 1 TABLET BY MOUTH (08:48)
[2025-05-29] MEDS: guaiFENesin 12 HR 600 MG TABCR PO ×2 (08:49→17:07)
[2025-05-29] MEDS: LOPERAMIDE HCL 2 MG CAPSULE PO ×4 (08:49→20:20)
[2025-05-29] MEDS: ESCITALOPRAM OXALATE 10 MG TABLET PO (08:49)
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
--- NOTE | 2025-05-29 14:33 | PC.NURSE ---
Patient transitioned to in-patient at 1433.
[2025-05-29 16:00] VITALS: BP 110/58; PULSE 79; RESP 17; TEMP 36.3; O2SAT 96
[2025-05-29] MEDS: MEMANTINE 5 MG TABLET 10 MG PO (20:20)
[2025-05-29] MEDS: DONEPEZIL HCL 5 MG TABLET 10 MG PO (20:20)
[2025-05-29] MEDS: ROSUVASTATIN 5 MG TABLET PO (20:20)
[2025-05-29 23:54] VITALS: BP 121/59; PULSE 77; RESP 16; TEMP 35.7; O2SAT 95
[2025-05-30] MEDS: SODIUM CHLORIDE 0.9% IV 1,000 ML 100 ML IV CONT ×3 (02:11→21:47)
[2025-05-30] MEDS: CARBIDOPA/LEVODOPA 25/100 MG TABLET 1 TABLET PO ×4 (05:41→23:45)
[2025-05-30 06:11] LABS: Hematocrit 37.2 % (37.0-46.0); Hemoglobin 12.2 g/dL (12.4-15.3); Immature Platelet Fraction Pct 1.6 % (1.0-7.0); Mean Corpuscular HGB Conc 32.8 g/dL (32-36); Mean Corpuscular Hemoglobin 31.7 pg (27.0-31.0); Mean Corpuscular Volume 96.6 fL (78.0-102.0); Platelet Count Result 69 K/mm3 (150-420); Red Blood Count 3.85 M/mm3 (4.70-6.10); White Blood Count 2.8 K/mm3 (4.8-10.8)
[2025-05-30 06:21] LABS: Alanine Aminotransferase 20 U/L (6-50); Albumin Level 2.9 g/dL (3.5-5.1); Alkaline Phosphatase 120 U/L (38-126); Amylase 135 U/L (30-110); Anion Gap 5 mmol/L (4-12); Aspartate Amino Transferase 131 U/L (17-59); Bilirubin,Total 1.8 mg/dL (0.2-1.3); Blood Urea Nitrogen 5 mg/dL (9-20); Calcium 8.2 mg/dL (8.4-10.2); Carbon Dioxide 28 mmol/L (22-30); Chloride 109 mmol/L (98-107); Estimated CRCL calculation 140 ml/min; Estimated Glomerular Filt Rate > 60; Glucose 96 mg/dL (65-110); Lipase 935 U/L (23-300); Osmolality Calculated 291 mOsm/kg (285-295); Sodium 142 mmol/L (137-145); Total Protein 5.5 g/dL (6.3-8.2)
[2025-05-30 06:56] LABS: Potassium 3.6 mmol/L (3.4-5.0)
[2025-05-30 07:11] LABS: Band Neutrophils Percent 1 % (0-6); Lymphocytes Absolute Manual 0.72 K/mm3 (1.1-4.5); Lymphocytes Percent Manual 26 % (18-44); Neutrophils Absolute Manual 1.54 K/mm3 (1.3-6.7); Neutrophils Percent Manual 54 % (46-73); Total Cells Counted 100
[2025-05-30 07:12] LABS: Anisocytosis 2+; Eosinophils Absolute Manual 0.16 K/mm3 (0.02-0.50); Eosinophils Percent Manual 6 % (1-6); Monocytes Absolute Manual 0.36 K/mm3 (0.1-0.90); Monocytes Percent Manual 13 % (3-9); Poikilocytosis 1+; Schistocytes None Seen
[2025-05-30 08:00] VITALS: BP 138/60; PULSE 87; RESP 18; TEMP 36.2
[2025-05-30] MEDS: TAMSULOSIN HCL 0.4 MG CAPSULE PO (08:33)
[2025-05-30] MEDS: guaiFENesin 12 HR 600 MG TABCR PO ×2 (08:33→17:43)
[2025-05-30] MEDS: ACIDOPHILUS/BULGARICUS CHEWABLE TABLET 1 TABLET BY MOUTH (08:34)
[2025-05-30] MEDS: ESCITALOPRAM OXALATE 10 MG TABLET PO (08:34)
[2025-05-30] MEDS: [UNRECOGNIZED DRUG - OTHER] BY MOUTH (09:48)
[2025-05-30] MEDS: GABAPENTIN 600 MG BY MOUTH (09:48)
--- NOTE | 2025-05-30 12:32 | P.PNIM_ITS ---
Progress Note: A&P Assessment and Plan (1) Pancreatitis, acute: Code(s): K85.90 - Acute pancreatitis without necrosis or infection, unspecified Status: Acute Assessment and Plan: presented with abdominal pain lipase 3126 on admission lipase 935 today patient denies abdominal pain and abdominal exam is benign clear liquid diet with plans for low fat diet in AM IV fluids pain control AM labs (2) Diarrhea: Code(s): R19.7 - Diarrhea, unspecified Status: Acute Assessment and Plan: patient reports diarrhea x 6 days prior to admission c-diff negative stool cultures pending change imodium to PRN change lomotil to PRN patient reports no bowel movements since admission AM labs (3) Lactic acidosis: Code(s): E87.20 - Acidosis, unspecified Status: Acute Assessment and Plan: Lactic acid 2.8 on arrival repeat lactic acid 1.7 s/p IV fluids monitor (4) Parkinsons disease: Code(s): G20 - Parkinson's disease Status: Acute Assessment and Plan: continue carbidopa-levodopa (5) Type 2 diabetes mellitus: Qualifiers: Diabetes mellitus complication detail: with other skin complication Diabetes mellitus complication status: with skin complications Diabetes mellitus residential insulin use: without residential use Qualified Code(s): E11.628 - Type 2 diabetes mellitus with other skin complications Code(s): E11.9 - Type 2 diabetes mellitus without complications Status: Acute Assessment and Plan: accu checks avoid hypoglycemia hold oral hypoglycemics low dose SSI monitor blood sugars and adjust as indicated (6) Cirrhosis of liver: Code(s): K74.60 - Unspecified cirrhosis of liver Status: Acute Assessment and Plan: per history review this is due to history of hepatitis (unknown type) appears stable monitor (7) Peripheral neuropathy: Code(s): G62.9 - Polyneuropathy, unspecified Status: Acute Assessment and Plan: hold home Horizant continue gabapentin (8) BPH (benign prostatic hyperplasia): Code(s): N40.0 - Benign prostatic hyperplasia without lower urinary tract symptoms Status: Acute Assessment and Plan: continue tamsulosin (9) Thrombocytopenia: Code(s): D69.6 - Thrombocytopenia, unspecified Status: Acute Assessment and Plan: monitor for signs or symptoms of bleeding Platelet count on admission 66k Subjective Date/time seen: 05/30/25 12:32 Interval history: Patient seen for a follow up visit. Patient lying in bed, in no signs of distress. Patient denies abdominal pain and abdominal exam is benign. Continue IV fluids. Lipase level improving. Start clear liquid diet. Plan for low fat diet tomorrow with possible discharge. Diet changes on discharge discussed with patient and family. Review of Systems Review of Systems: All systems reviewed & are unremarkable except as noted in HPI and below Exam Const: General: comfortable and no acute distress HENMT: Face/Nose/Sinus: Normal nares present Mouth: Yes moist mucous membranes Eyes: General: appearance normal, both eyes and all related structures Sclera: sclerae normal Neck: Neck: supple Resp: Effort & Inspection: normal respiratory effort Auscultation: clear to auscultation bilaterally Cardio: Rate: regular rate Rhythm: regular rhythm GI: Auscultation: normal bowel sounds Other: tender to palpation worse in LUQ Skin: General skin exam: normal color and no rashes or lesions noted Neuro: General: gait normal Speech: normal speech Motor exam (neuro): 5/5 motor strength present throughout Sensory Exam: normal sensation Extrem: General: normal to inspection Psych: Mental Status: mental status grossly normal Affect: normal affect Other: alert and oriented x 3 Objective Data Vital Signs Vital Signs: Vital Signs - 24 hr 05/29/25 16:00 05/29/25 23:54 05/30/25 08:00 Temperature 97.3 F L 96.3 F L 97.2 F L Pulse Rate 79 77 87 Respiratory Rate 17 16 18 Blood Pressure 110/58 L 121/59 L 138/60 Pulse Oximetry 96 95 Oxygen Delivery Room Air Room Air Room Air Intake/Output Intake/Output: Intake & Output 05/27/25 05/28/25 05/29/25 05/30/25 23:59 23:59 23:59 23:59 Intake Total 1999 5360 2338.3 Output Total 1450 1800 Balance 1999 3910 538.3 Meds/Results Medications: Active Medications Generic Name Dose Route Start Last Admin Trade Name Freq PRN Reason Stop Dose Admin Acetaminophen 650 mg 05/29/25 07:34 Acetaminophen 325 Mg Tablet PO Q4H PRN Headache Albuterol 1 puff 05/29/25 07:34 Albuterol Sulfate (*Sp) Inhaler INHALATION QID PRN Wheezing Carbidopa/Levodopa 1 tablet 05/29/25 00:00 05/30/25 12:26 Carbidopa/Levodopa 25/100 Mg Tablet PO 1 tablet Q6HR JUANA Administration Dextrose 12.5 gm 05/28/25 18:47 Dextrose 50% 25 Gm/50 Ml Syringe IV PUSH PRN PRN Hypoglycemia Protocol Diphenoxylate HCl/Atropine 2 tablet 05/29/25 07:39 Diphenoxylate/Atropine (*Crx) 2.5 Mg Tablet PO QID PRN Diarrhea Donepezil HCl 10 mg 05/29/25 21:00 05/29/25 20:20 Donepezil Hcl 5 Mg Tablet PO 10 mg HS JUANA Administration Duloxetine HCl 90 mg 05/29/25 09:00 05/30/25 08:33 Duloxetine Hcl 30 Mg Capsule.Dr PO 90 mg QAM JUANA Administration Escitalopram Oxalate 10 mg 05/29/25 09:00 05/30/25 08:34 Escitalopram Oxalate 10 Mg Tablet PO 10 mg DAILY JUANA Administration Glucagon 1 mg 05/28/25 18:47 Glucagon For Inj 1 Mg Vial IM PRN PRN Hypoglycemia Protocol Glucose 15 gm 05/28/25 18:47 Glucose Oral Gel 15 Gm Of Glucse In 37.5 Gm Tube PO PRN PRN Hypoglycemia Protocol Guaifenesin 600 mg 05/29/25 09:00 05/30/25 08:33 Guaifenesin 12 Hr 600 Mg Tabcr PO 600 mg BID JUANA Administration Dextrose 1,000 mls @ 100 mls/hr 05/28/25 18:47 Dextrose 5% 1,000 Ml IVPB PRN PRN Hypoglycemia Protocol Sodium Chloride 1,000 mls @ 100 mls/hr 05/29/25 07:35 05/30/25 11:46 Normal Saline Iv IV CONT 100 mls/hr .Q10H JUANA Administration Insulin Human Lispro 3 - 6 units 05/29/25 08:00 05/30/25 12:32 Insulin Human Lispro (*Bkc) 1,000 Units/10 Ml Vial SUB-Q Not Given TIDWM JUANA Protocol Lactobacillus Acidophilus 1 tablet 05/29/25 09:00 05/30/25 08:34 Acidophilus/Bulgaricus Chewable Tablet BY MOUTH 1 tablet DAILY JUANA Administration Loperamide HCl 2 mg 05/28/25 21:00 05/30/25 12:27 Loperamide Hcl 2 Mg Capsule PO Not Given QID JUANA Memantine 10 mg 05/29/25 21:00 05/29/25 20:20 Memantine 5 Mg Tablet PO 10 mg HS JUANA Administration Nonformulary Drug ([ 600 mg 05/30/25 10:00 05/30/25 09:48 Horizant] Gabapentin BY MOUTH 06/29/25 09:59 600 mg Er 600 Mg Tablet) DAILY JUANA Administration Ondansetron HCl 4 mg 05/28/25 18:35 05/29/25 05:46 Ondansetron Inj 4 Mg/2 Ml Vial IV PUSH 4 mg QID PRN Administration Nausea And Vomiting Prednisone 5 mg 05/29/25 08:00 05/30/25 08:32 Prednisone 5 Mg Tablet PO 5 mg DAILY@0800 JUANA Administration Prednisone 5 mg 05/29/25 10:00 05/30/25 08:37 Prednisone 5 Mg Tablet PO 5 mg DAILY JUANA Administration Rosuvastatin Calcium 5 mg 05/28/25 21:00 05/29/25 20:20 Rosuvastatin 5 Mg Tablet PO 5 mg HS JUANA Administration Tamsulosin HCl 0.4 mg 05/29/25 09:00 05/30/25 08:33 Tamsulosin Hcl 0.4 Mg Capsule PO 0.4 mg DAILY JUANA Administration Tramadol HCl 50 mg 05/28/25 18:43 05/29/25 14:16 Tramadol Hcl (*Crx) 50 Mg Tablet PO 50 mg Q6H PRN Administration Pain Rated 4-6 Trazodone HCl 50 mg 05/29/25 21:00 05/29/25 20:20 Trazodone Hcl 50 Mg Tablet PO 50 mg HS JUANA Administration Radiology Results: ITS Impressions Abdomen/Pelvis CT 05/28/25 16:24 IMPRESSION: 1. Cirrhotic changes of the liver with portal venous hypertension and splenomegaly. 2. Probable colitis of the descending colon likely infectious in nature. 3. Cystitis. Labs Labs: Laboratory Results - last 24 hr 05/29/25 05/29/25 05/30/25 16:06 20:29 05:27 WBC 2.8 L RBC 3.85 L Hgb 12.2 L Hct 37.2 MCV 96.6 MCH 31.7 H MCHC 32.8 RDW 15.4 H Plt Count 69 L MPV 10.7 Immature Gran % (Auto) Not Reportable Neut % (Auto) Not Reportable Lymph % (Auto) Not Reportable Patrick % (Auto) Not Reportable Eos % (Auto) Not Reportable Baso % (Auto) Not Reportable Lymph # (Auto) Not Reportable Patrick # (Auto) Not Reportable Eos # (Auto) Not Reportable Baso # (Auto) Not Reportable Abs Immat Gran (auto) Not Reportable Absolute Neuts (auto) Not Reportable Absolute Nucleated RBC Not Reportable Total Counted 100 Neutrophils % (Manual) 54 Band Neutrophils % 1 Lymphocytes % (Manual) 26 Monocytes % (Manual) 13 H Eosinophils % (Manual) 6 Nucleated RBC % Not Reportable Abs Neuts (Manual) 1.54 Abs Lymphs (Manual) 0.72 L Abs Monocytes (Manual) 0.36 Absolute Eos (Manual) 0.16 Platelet Estimate Decreased % Immature Plt Fraction 1.6 Poikilocytosis 1+ Anisocytosis 2+ Schistocytes None seen Sodium 142 Potassium 3.6 Chloride 109 H Carbon Dioxide 28 Anion Gap 5 BUN 5 L Creatinine 0.43 L Estim Creat Clear Calc 140 Estimated GFR > 60 Glucose 96 POC Capillary Glucose 129 H 106 H Calculated Osmolality 291 Calcium 8.2 L Total Bilirubin 1.8 H AST 131 H ALT 20 Alkaline Phosphatase 120 Total Protein 5.5 L Albumin 2.9 L Amylase 135 H Lipase 935 H 05/30/25 07:59 WBC RBC Hgb Hct MCV MCH MCHC RDW Plt Count MPV Immature Gran % (Auto) Neut % (Auto) Lymph % (Auto) Patrick % (Auto) Eos % (Auto) Baso % (Auto) Lymph # (Auto) Patrick # (Auto) Eos # (Auto) Baso # (Auto) Abs Immat Gran (auto) Absolute Neuts (auto) Absolute Nucleated RBC Total Counted Neutrophils % (Manual) Band Neutrophils % Lymphocytes % (Manual) Monocytes % (Manual) Eosinophils % (Manual) Nucleated RBC % Abs Neuts (Manual) Abs Lymphs (Manual) Abs Monocytes (Manual) Absolute Eos (Manual) Platelet Estimate % Immature Plt Fraction Poikilocytosis Anisocytosis Schistocytes Sodium Potassium Chloride Carbon Dioxide Anion Gap BUN Creatinine Estim Creat Clear Calc Estimated GFR Glucose POC Capillary Glucose 92 Calculated Osmolality Calcium Total Bilirubin AST ALT Alkaline Phosphatase Total Protein Albumin Amylase Lipase Quality VTE Prophylaxis VTE prophylaxis: mechanical ordered
[2025-05-30] MEDS: traMADol HCL (*CRX) 50 MG TABLET PO (13:27)
[2025-05-30 16:00] VITALS: BP 143/65; PULSE 82; RESP 18; TEMP 36.6; O2SAT 96
[2025-05-30 20:00] VITALS: PULSE 81; RESP 18; O2SAT 95
[2025-05-30] MEDS: ROSUVASTATIN 5 MG TABLET PO (21:39)
[2025-05-30] MEDS: MEMANTINE 5 MG TABLET 10 MG PO (21:40)
[2025-05-30] MEDS: DONEPEZIL HCL 5 MG TABLET 10 MG PO (21:40)
[2025-05-31] VITALS: BP 137/67; PULSE 83; RESP 16; TEMP 36.8; O2SAT 95
[2025-05-31 05:46] LABS: Hematocrit 36.5 % (37.0-46.0); Hemoglobin 12.3 g/dL (12.4-15.3); Immature Platelet Fraction Pct 1.0 % (1.0-7.0); Mean Corpuscular HGB Conc 33.7 g/dL (32-36); Mean Corpuscular Hemoglobin 32.1 pg (27.0-31.0); Mean Corpuscular Volume 95.3 fL (78.0-102.0); Platelet Count Result 79 K/mm3 (150-420); Red Blood Count 3.83 M/mm3 (4.70-6.10); White Blood Count 2.8 K/mm3 (4.8-10.8)
[2025-05-31 05:59] LABS: Alanine Aminotransferase 19 U/L (6-50); Albumin Level 2.8 g/dL (3.5-5.1); Alkaline Phosphatase 119 U/L (38-126); Amylase 90 U/L (30-110); Anion Gap 4 mmol/L (4-12); Aspartate Amino Transferase 98 U/L (17-59); Bilirubin,Total 1.8 mg/dL (0.2-1.3); Blood Urea Nitrogen 3 mg/dL (9-20); Calcium 8.1 mg/dL (8.4-10.2); Carbon Dioxide 28 mmol/L (22-30); Chloride 107 mmol/L (98-107); Estimated CRCL calculation 134 ml/min; Estimated Glomerular Filt Rate > 60; Glucose 91 mg/dL (65-110); Lipase 292 U/L (23-300); Osmolality Calculated 284 mOsm/kg (285-295); Potassium 3.8 mmol/L (3.4-5.0); Sodium 139 mmol/L (137-145); Total Protein 5.6 g/dL (6.3-8.2)
[2025-05-31 06:00] LABS: Band Neutrophils Percent 0 % (0-6); Basophils Absolute Manual 0.02 K/mm3 (0-0.1); Basophils Percent Manual 1 % (0-1); Eosinophils Absolute Manual 0.19 K/mm3 (0.02-0.50); Eosinophils Percent Manual 7 % (1-6); Lymphocytes Absolute Manual 0.70 K/mm3 (1.1-4.5); Lymphocytes Percent Manual 25 % (18-44); Monocytes Absolute Manual 0.44 K/mm3 (0.1-0.90); Monocytes Percent Manual 16 % (3-9); Neutrophils Absolute Manual 1.42 K/mm3 (1.3-6.7); Neutrophils Percent Manual 51 % (46-73)
[2025-05-31] MEDS: CARBIDOPA/LEVODOPA 25/100 MG TABLET 1 TABLET PO ×2 (06:25→11:18)
[2025-05-31 08:00] VITALS: BP 137/61; PULSE 87; RESP 18; TEMP 37.1; O2SAT 96
[2025-05-31] MEDS: ESCITALOPRAM OXALATE 10 MG TABLET PO (08:42)
[2025-05-31] MEDS: ACIDOPHILUS/BULGARICUS CHEWABLE TABLET 1 TABLET BY MOUTH (08:42)
[2025-05-31] MEDS: guaiFENesin 12 HR 600 MG TABCR PO (08:42)
[2025-05-31] MEDS: GABAPENTIN 600 MG BY MOUTH (08:43)
[2025-05-31] MEDS: [UNRECOGNIZED DRUG - OTHER] BY MOUTH (08:43)
[2025-05-31] MEDS: TAMSULOSIN HCL 0.4 MG CAPSULE PO (08:43)
[2025-05-31] MEDS: traMADol HCL (*CRX) 50 MG TABLET PO (08:53)
--- NOTE | 2025-05-31 12:54 | PM.DS ---
DS: Admitting Diagnosis Discharge Date 05/31/2025 Admitting Diagnosis acute pancreatitis DS: Discharge Diagnosis Discharge Diagnosis (1) Pancreatitis, acute: Code(s): K85.90 - Acute pancreatitis without necrosis or infection, unspecified Status: Acute Assessment and Plan: presented with abdominal pain Lipase 3126-->1458-->935-->292 patient denies abdominal pain and abdominal exam is benign today IV fluids pain control now tolerating low fat diet ok for discharge on a low fat diet (2) Diarrhea: Code(s): R19.7 - Diarrhea, unspecified Status: Acute Assessment and Plan: patient reports diarrhea x 6 days prior to admission c-diff negative stool cultures pending change imodium to PRN change lomotil to PRN patient reports no bowel movements since admission appears resolved (3) Lactic acidosis: Code(s): E87.20 - Acidosis, unspecified Status: Acute Assessment and Plan: Lactic acid 2.8 on arrival repeat lactic acid 1.7 s/p IV fluids (4) Parkinsons disease: Code(s): G20 - Parkinson's disease Status: Acute Assessment and Plan: continue carbidopa-levodopa (5) Type 2 diabetes mellitus: Qualifiers: Diabetes mellitus complication detail: with other skin complication Diabetes mellitus complication status: with skin complications Diabetes mellitus shelter insulin use: without supervisor long goods use Qualified Code(s): E11.628 - Type 2 diabetes mellitus with other skin complications Code(s): E11.9 - Type 2 diabetes mellitus without complications Status: Acute Assessment and Plan: accu checks avoid hypoglycemia hold oral hypoglycemics low dose SSI monitor blood sugars and adjust as indicated (6) Cirrhosis of liver: Code(s): K74.60 - Unspecified cirrhosis of liver Status: Acute Assessment and Plan: per history review this is due to history of hepatitis (unknown type) appears stable monitor (7) Peripheral neuropathy: Code(s): G62.9 - Polyneuropathy, unspecified Status: Acute Assessment and Plan: hold home Horizant continue gabapentin (8) BPH (benign prostatic hyperplasia): Code(s): N40.0 - Benign prostatic hyperplasia without lower urinary tract symptoms Status: Acute Assessment and Plan: continue tamsulosin (9) Thrombocytopenia: Code(s): D69.6 - Thrombocytopenia, unspecified Status: Acute Assessment and Plan: monitor for signs or symptoms of bleeding Platelet count on admission 66k DS: Summary Hospital Course Reason for hospitalization: acute pancreatitis Hospital Course: Patient is a 70 year old male with PMH of BPH, DM type 2 with diabetic retinopathy, peripheral neuropathy, depression, thrombocytopenia, cirrhosis of the liver, Parkinson's disease, Crohn's disease, asthma and HLD. Patient presented to the ER with complaints of diarrhea x 6 days and left sided abdominal pain x 6 days. Patient reports he was recently treated with amoxicillin for acute sinusitis which he finished 6 days ago. Patient was treated for pancreatitis 2 months ago, but did not require admission to the hospital. Patient stopped Ozempic at that time as it was believed the pancreatitis was caused from this. Patient has a history of Chron's disease and is not on any treatment at this time. In the ER the patient's lab work showed wbc count 3.4, lactic acid 2.8, amylase [address] of the abdomen and pelvis showed probable colitis of the descending colon likely infectious in nature. C-diff was negative. Occult blood in stool was positive. UA was negative for infection. It was decided that patient did not need transfer to [facility] as there was no abnormalities of the pancreas noted on the CT, he will be managed here with bowel rest, IV fluids, IV pain control and supportive care. Patient was given a clear liquid diets on admission from the ER. Patient's lipase improved from 3126 to 1458, however patient was still having a significant amount of left upper quadrant abdominal pain. Patient was drinking large quantities of clear liquid, therefore patient was made NPO. Once NPO patient's pain continued to improve and lipase improved to 935 and then normalized at 292. Patient's diet was advanced to low-fat diet. Patient was tolerating diet without pain. Patient had no additional episodes of diarrhea. Patient was discharged home and instructed to continue to follow a low-fat diet. Patient's instructed to use Imodium as needed for diarrhea, however to avoid constipation. Patient will need to follow up with his PCP within 1-2 weeks of discharge. patient's home medications were restarted on discharge. Patient was discharged home with his . Time Spent with Patient Time attestation: Total time spent providing and/or coordinating discharge services: 35 Minutes Exam Const: General: comfortable and no acute distress HENMT: Face/Nose/Sinus: Normal nares present Mouth: Yes moist mucous membranes Eyes: General: appearance normal, both eyes and all related structures Sclera: sclerae normal Neck: Neck: supple Resp: Effort & Inspection: normal respiratory effort Auscultation: clear to auscultation bilaterally Cardio: Rate: regular rate Rhythm: regular rhythm GI: GI Palp: Yes Soft to palpation Auscultation: normal bowel sounds Skin: General skin exam: normal color and no rashes or lesions noted Neuro: General: gait normal Speech: normal speech Motor exam (neuro): 5/5 motor strength present throughout Sensory Exam: normal sensation Extrem: General: normal to inspection Psych: Mental Status: mental status grossly normal Affect: normal affect Other: alert and oriented x 3 DS: Data Data Completed and Pending Labs on day of discharge: Labs from last 24 hours 05/31/25 05/31/25 05/31/25 11:21 07:37 05:39 WBC 2.8 L RBC 3.83 L Hgb 12.3 L Hct 36.5 L MCV 95.3 MCH 32.1 H MCHC 33.7 RDW 15.3 H Plt Count 79 L MPV 9.5 Immature Gran % (Auto) Not Reportable Neut % (Auto) Not Reportable Lymph % (Auto) Not Reportable [place] % (Auto) Not Reportable Eos % (Auto) Not Reportable Baso % (Auto) Not Reportable Lymph # (Auto) Not Reportable [place] # (Auto) Not Reportable Eos # (Auto) Not Reportable Baso # (Auto) Not Reportable Abs Immat Gran (auto) Not Reportable Absolute Neuts (auto) Not Reportable Absolute Nucleated RBC Not Reportable Neutrophils % (Manual) 51 Band Neutrophils % 0 Lymphocytes % (Manual) 25 Monocytes % (Manual) 16 H Eosinophils % (Manual) 7 H Basophils % (Manual) 1 Nucleated RBC % Not Reportable Abs Neuts (Manual) 1.42 Abs Lymphs (Manual) 0.70 L Abs Monocytes (Manual) 0.44 Absolute Eos (Manual) 0.19 Abs Basophils (Manual) 0.02 Platelet Estimate Slightly decreased % Immature Plt Fraction 1.0 Schistocytes Not Reportable Sodium 139 Potassium 3.8 Chloride 107 Carbon Dioxide 28 Anion Gap 4 BUN 3 L Creatinine 0.45 L Estim Creat Clear Calc 134 Estimated GFR > 60 Glucose 91 POC Capillary Glucose 157 H 90 Calculated Osmolality 284 L Calcium 8.1 L Total Bilirubin 1.8 H AST 98 H ALT 19 Alkaline Phosphatase 119 Total Protein 5.6 L Albumin 2.8 L Amylase 90 Lipase 292 05/30/25 05/30/25 21:57 16:42 WBC RBC Hgb Hct MCV MCH MCHC RDW Plt Count MPV Immature Gran % (Auto) Neut % (Auto) Lymph % (Auto) [place] % (Auto) Eos % (Auto) Baso % (Auto) Lymph # (Auto) [place] # (Auto) Eos # (Auto) Baso # (Auto) Abs Immat Gran (auto) Absolute Neuts (auto) Absolute Nucleated RBC Neutrophils % (Manual) Band Neutrophils % Lymphocytes % (Manual) Monocytes % (Manual) Eosinophils % (Manual) Basophils % (Manual) Nucleated RBC % Abs Neuts (Manual) Abs Lymphs (Manual) Abs Monocytes (Manual) Absolute Eos (Manual) Abs Basophils (Manual) Platelet Estimate % Immature Plt Fraction Schistocytes Sodium Potassium Chloride Carbon Dioxide Anion Gap BUN Creatinine Estim Creat Clear Calc Estimated GFR Glucose POC Capillary Glucose 92 101 Calculated Osmolality Calcium Total Bilirubin AST ALT Alkaline Phosphatase Total Protein Albumin Amylase Lipase Imaging Radiologist's impression: Ordering Physician: Kyle Bower MD Date of Service: 05/28/25 Procedure(s): CT abdomen pelvis w con Accession Number(s): [id number] cc: Kyle Bower MD; [facility], MICHAEL~ Erwin Charlie Fer EXAMINATION: CT abdomen pelvis w con COMPARISON: None HISTORY: LLQ abdominal pain, diarrhea x1 week. Acute pancreatitis TECHNIQUE: Axial images were obtained through the abdomen, pelvis post administration of IV contrast. Oral contrast was also administered. Coronal reconstruction images were obtained from the axial views. CT scan performed using dose optimization techniques including the following automated exposure control; adjustment of mA and/or kV; use of iterative reconstruction technique. Automatic exposure control was used to reduce radiation dose. Permanent radiation dose record is archived to PACS. FINDINGS: CT abdomen: LUNG BASES: The lung bases are clear. The visualized portions of the heart and pericardium are unremarkable. LIVER: There are cirrhotic changes of the liver with nodularity of the liver contours and heterogeneity of the liver. The main portal vein is patent. There is no intrahepatic biliary duct dilatation. SPLEEN: The spleen is enlarged with multiple collateral vessels noted consistent with portal venous hypertension.. KIDNEYS: Right Kidney: Right kidney there are simple appearing renal cysts the largest within the mid to superior pole measuring 6 x 7 cm. Left Kidney: Left kidney there are subcentimeter probable renal cysts. ADRENAL GLANDS: Unremarkable. PANCREAS: Mild atrophy of the pancreas. GALLBLADDER/BILIARY: The gallbladder is not identified. STOMACH AND ESOPHAGUS: Stomach appears decompressed. BOWEL/MESENTERY: There is thickening noted of the descending colon consistent with colitis, no perforation or abscess. No diverticulitis. Moderate fecal content. Appendix normal. Mesentery normal. No dilated small bowel loops. ADENOPATHY/RETROPERITONEUM: No lymphadenopathy. AORTA/VASCULATURE: Normal caliber aorta. FREE FLUID OR FREE AIR: Trace free fluid.. CT pelvis: SOLID ORGANS/REPRODUCTIVE: Prostate is enlarged with a heterogeneous appearance correlate with PSA and prostate ultrasound. BLADDER: Circumferential thickening of the bladder wall with perivesicular stranding. OSSEOUS STRUCTURES: No acute osseous abnormality.No suspicious lesions. OVERLYING SOFT TISSUES: Unremarkable. IMPRESSION: 1. Cirrhotic changes of the liver with portal venous hypertension and splenomegaly. 2. Probable colitis of the descending colon likely infectious in nature. 3. Cystitis. Reviewed, dictated and finalized at location P. Discharge Plan Discharge Attending physician on discharge: Anastacio Schulz Consulting providers: Divina Johnson; Oneal Tubbs Discharging Clinician: Divina Johnson Patient Disposition: Home Activity: as tolerated Diet: low fat Discharge Instructions: Please ask your PCP to draw a blood test to check if your liver enzymes have returned to normal range about 1 week after discharge Patient Instructions: Antibiotic Form, Loperamide (By mouth), Pancreatitis (DC), Low Fat Diet (DC), Fall Prevention for Older Adults (DC), Acute Diarrhea (ED) Patient Language: Kittitian Stand Alone Forms: General Discharge Information Follow-up/Referrals: [facility] [Primary Care Provider, Medical] Referral Note: Call for an appt to be seen within 1-2 weeks of discharge. Discharge Medications: New loperamide 2 mg Capsule 2 mg PO QID PRN (Reason: Diarrhea) Qty: 30 0RF (DME) FreeStyle Landry 3 Plus Sensor Device See Rx Instructions .Route Qty: 2 0RF Rx Instructions: As directed Continued phenazopyridine [Pyridium] 200 mg tablet 200 mg PO TID Qty: 6 0RF trazodone 50 mg tablet 50 mg PO HS donepezil [Aricept] 10 mg tablet 10 mg PO HS memantine 10 mg tablet 10 mg PO HS prednisone 5 mg tablet 5 mg PO DAILY (DME) FreeStyle Lite Strips Strip MISCELLANEOUS (DME) FreeStyle Landry 3 Plus Sensor Device MISCELLANEOUS cetirizine [Zyrtec] 10 mg Tablet 10 mg PO DAILY metformin 1,000 mg Tablet 1,000 mg PO BID duloxetine [Cymbalta] 60 mg Capsule,Delayed Release(Dr/Ec) 60 mg PO DAILY Jardiance 25 mg Tablet 25 mg PO DAILY tamsulosin [Flomax] 0.4 mg Capsule 0.4 mg PO DAILY calcipotriene 0.005 % Cream 1 applic TOPICAL ONCE albuterol sulfate [ProAir HFA] 90 mcg/actuation Hfa Aerosol Inhaler 1 inh INHALATION QID PRN (Reason: Wheezing) escitalopram oxalate 10 mg Tablet 10 mg PO DAILY rosuvastatin [Crestor] 5 mg Tablet 5 mg PO DAILY tramadol 200 mg Tablet Extended Release 24 Hr 200 mg PO DAILY Horizant 600 mg Tablet Extended Release 600 mg PO HS Probiotic 3 billion cell Capsule 3,000 mmu cells PO DAILY guaifenesin [Mucinex] 600 mg tablet extended release 12hr 600 mg PO BID 15 Days Qty: 30 0RF difluprednate [Durezol] 0.05 % Drops 1 drp EACH EYE DIRECTED Rx Instructions: 1 gtt each eye every other day acetaminophen [Mapap (acetaminophen)] 325 mg Tablet 650 mg PO Q4H PRN (Reason: Headache) Qty: 20 0RF carbidopa-levodopa [Sinemet] 25-100 mg Tablet 1 tablet PO 0800,1200,1600,2000 30 Days Qty: 120 0RF duloxetine 60 mg Capsule,Delayed Release(Dr/Ec) 30 mg PO DAILY Qty: 14 0RF Discontinued ciprofloxacin HCl [Cipro] 500 mg tablet 500 mg PO Q12H Qty: 14 0RF Bydureon 2 mg/0.65 mL Pen Injector 2 mg SUBCUT WEEKLY cephalexin 500 mg capsule 500 mg PO Q6H 5 Days Qty: 20 0RF sulfamethoxazole-trimethoprim [Bactrim DS] 800-160 mg tablet 1 tablet PO Q12H Qty: 14 0RF doxycycline hyclate 100 mg capsule 100 mg PO DAILY Qty: 14 0RF ciprofloxacin HCl 500 mg tablet 500 mg PO Q12H Qty: 14 0RF Date of admission: 05/29/25 14:33 Primary Care Provider: [facility]HAEL Admitting Provider: Anastacio Schulz Attending physician on admission: Anastacio Schulz Condition: Stable Quality VTE Prophylaxis VTE prophylaxis: mechanical ordered
--- NOTE | 2025-05-31 14:30 | PC.NURSE ---
Discharge instructions given, meds and side effects explained to . She voices understanding at this time. Informed she could always call floor if she had any other questions when she got home. Glucometer RX faxed to [facility] in [place] per request.
--- NOTE | 2025-06-01 10:15 | PC.NURSE ---
Discgharge call back completed, doing ok, no questions regarding dc instructions, no questions regarding medications or side effects
== END 2025-05-31 14:20 | disposition home or self-care (01) | DRG 439 ==
LOC: CHSED 18:33 → CHS2ND 18:48
PROVIDERS: Nurse Practitioner Adult Health; Admitting Provider Internal Medicine; Emergency Provider Emergency Medicine; Visit Provider Internal Medicine
DX: K85.90 Acute pancreatitis without necrosis or infection, unspecified (principal); E87.20 Acidosis, unspecified; E78.5 Hyperlipidemia, unspecified; D69.6 Thrombocytopenia, unspecified; G20.A1 Parkinson's disease without dyskinesia, without mention of fluctuations; G62.9 Polyneuropathy, unspecified; J45.909 Unspecified asthma, uncomplicated; K74.60 Unspecified cirrhosis of liver; N40.0 Benign prostatic hyperplasia without lower urinary tract symptoms; E11.319 Type 2 diabetes mellitus with unspecified diabetic retinopathy without macular edema; R19.7 Diarrhea, unspecified; Z79.84 Long term (current) use of oral hypoglycemic drugs
CPT/HCPCS: 36415; 74177; 80053; 81003; 82140; 82150; 82272; 82728; 82948; 83540; 83550; 83605; 83690; 83735; 85025; 85055; 85610; 85730; 87045; 87046; 87427; 87493; 96361; 96374; 99285; A9270; G0378; J2405; J7030; J7512; Q9967

== ENCOUNTER 2025-06-23 16:05 | Emergency (ER) | payer MEDICARE, OTHER, SELFPAY ==
--- NOTE | ~2025-06-23 | CT_ITS ---
CT brain wo con HISTORY:head injury s/p fall COMPARISON: None. TECHNIQUE: Axial images were obtained of the head without intravenous contrast. FINDINGS: No acute intracranial hemorrhage, mass effect or midline shift. No extra-axial fluid collections. The calvarium is intact. Visualized paranasal sinuses and mastoid air cells are clear. IMPRESSION: No acute intracranial hemorrhage or extra axial fluid collections. All CT scans at this facility are performed using low dose modulation techniques as appropriate to perform exam including the following: automated exposure control; use of iterative reconstruction technique; adjustment of the mA and/or kV according to patient size (this includes techniques or standardized protocols for targeted exams where dose is matched to indication/reason for exam). Reviewed, dictated and finalized at location S. RAPHICAL HISTORIAN IMPRESSION: No acute intracranial hemorrhage or extra axial fluid collections. All CT scans at this facility are performed using low dose modulation techniqu es as appropriate to perform exam including the following: automated exposure c ontrol; use of iterative reconstruction technique; adjustment of the mA and/or kV according to patient size (this includes techniques or standardized protocol s for targeted exams where dose is matched to indication/reason for exam).
--- NOTE | ~2025-06-23 | CT_ITS ---
CT chst ab pel thor lum w HISTORY: chest pain and abdominal pain following fall . COMPARISON: None. TECHNIQUE: Axial images of the chest, abdomen and pelvis were obtained without and with infusion of 100 Isovue 300. FINDINGS: CT CHEST: The examination demonstrates no pulmonary nodules, infiltrates and/or effusions. No pathologically enlarged hilar or mediastinal lymphadenopathy is seen. Cardiac size and mediastinal configuration are normal in appearance. The pulmonary artery and thoracic aorta are normal in caliber and patency. Osseous structures are intact. IMPRESSION: No acute cardiopulmonary process. No pathologic enhancement is noted. No pathologically enlarged mediastinal lymphadenopathy is noted. CT abdomen and pelvis with contrast: Cirrhotic liver is noted. No intrahepatic mass or ductal dilatation is evident. The gallbladder is unremarkable. Spleens enlarged. Splenic varices are noted. The adrenal glands are symmetric in size. Kidneys enhance symmetrically. Bilateral renal cysts are noted measuring up to 6.7 cm. There is no solid mass. There is no hydronephrosis. Evaluation of the stomach and bowel loops are limited due to lack of oral contrast. The appendix is normal in appearance. There is colonic diverticulosis without evidence of acute diverticulitis. The bladder and rectum are normal. No free intraperitoneal fluid or air is evident. There is no significant retroperitoneal lymphadenopathy. The aorta, visceral vessels and renal arteries demonstrate normal caliber and patency. The lower thoracic and lumbar vertebrae are in normal alignment. IMPRESSION: No acute abnormality is noted in the abdomen and pelvis. CT thoracic spine. FINDINGS: [There is normal alignment of the thoracic vertebrae.] [No thoracic compression fracture is evident.] [There is no prevertebral soft tissue swelling.] Degenerative changes with facet joint arthropathy and disc space narrowing are noted. There is disc bulging present in the lower thoracic spine. [There is no high-grade spinal canal stenosis or foraminal narrowing.] IMPRESSION: No acute fracture or subluxation. CT lumbar spine: FINDINGS: The images demonstrate no acute fracture or paravertebral soft tissue swelling. No compression fracture or spondylolysis. There are disc bulging with disc osteophyte complex that L3-L4 and L4-L5 resulting in severe central canal stenosis and mild neural foraminal narrowing. IMPRESSION: No acute fracture or subluxation. All CT scans at this facility are performed using low dose modulation techniques as appropriate to perform exam including the following: automated exposure control; use of iterative reconstruction technique; adjustment of the mA and/or kV according to patient size (this includes techniques or standardized protocols for targeted exams where dose is matched to indication/reason for exam) Reviewed, dictated and finalized at location S. YTICAL LAB TECHNICIAN IMPRESSION: No acute cardiopulmonary process. No pathologic enhancement is noted. No pathologically enlarged mediastinal lymphadenopathy is noted. CT abdomen and pelvis with contrast: Cirrhotic liver is noted. No intrahepatic mass or ductal dilatation is evident. The gallbladder is unremarkable. Spleens enlarged. Splenic varices are noted. The adrenal glands are symmetric in size. Kidneys enhance symmetrically. Bilateral renal cysts are noted measuring up to 6.7 cm. There is no solid mass. There is no hydronephrosis. Evaluation of the stomach and bowel loops are limited due to lack of oral contr ast. The appendix is normal in appearance. There is colonic diverticulosis with out evidence of acute diverticulitis. The bladder and rectum are normal. No free intraperitoneal fluid or air is evid ent. There is no significant retroperitoneal lymphadenopathy. The aorta, visceral vessels and renal arteries demonstrate normal caliber and p atency. The lower thoracic and lumbar vertebrae are in normal alignment. IMPRESSION: No acute abnormality is noted in the abdomen and pelvis. CT thoracic spine. FINDINGS: [There is normal alignment of the thoracic vertebrae.] [No thoracic compression fracture is evident.] [There is no prevertebral soft tissue swelli ng.] Degenerative changes with facet joint arthropathy and disc space narrowing are noted. There is disc bulging present in the lower thoracic spine. [There is no high-grade spinal canal stenosis or foraminal narrowing.] IMPRESSION: No acute fracture or subluxation. CT lumbar spine: FINDINGS: The images demonstrate no acute fracture or paravertebral soft tissue swelling. No compression fracture or spondylolysis. There are disc bulging wit h disc osteophyte complex that L3-L4 and L4-L5 resulting in severe central angel l stenosis and mild neural foraminal narrowing. IMPRESSION: No acute fracture or subluxation. All CT scans at this facility are performed using low dose modulation techniqu es as appropriate to perform exam including the following: automated exposure c ontrol; use of iterative reconstruction technique; adjustment of the mA and/or kV according to patient size (this includes techniques or standardized protocol s for targeted exams where dose is matched to indication/reason for exam)
--- NOTE | ~2025-06-23 | CT_ITS ---
CT cervical spine wo con HISTORY: neck pain following fall COMPARISON: None TECHNIQUE: Axial images of the cervical spine were obtained. Multiplanar reconstruction in the coronal, sagittal and axial reformats to evaluate for cervical fracture. FINDINGS: The images demonstrate no acute fracture or paravertebral soft tissue swelling. Moderate degenerative changes at C5-C6 and C6-C7 with disc bulging with uncovertebral hypertrophy and endplate sclerotic changes. This results in moderate neural foraminal narrowing. Mild central canal narrowing is noted. The visualized aspect of the upper lungs are clear. IMPRESSION: No acute fracture or subluxation. All CT scans at this facility are performed using low dose modulation techniques as appropriate to perform exam including the following: automated exposure control; adjustment of the mA and/or kV according to patient size (this includes techniques or standardized protocols for targeted exams where does is matched to indication/reason for exam; i.e. extremities or head); use of iterative reconstruction technique). Reviewed, dictated and finalized at location [facility]. [facility] IMPRESSION: No acute fracture or subluxation. All CT scans at this facility are performed using low dose modulation techniqu es as appropriate to perform exam including the following: automated exposure c ontrol; adjustment of the mA and/or kV according to patient size (this includes techniques or standardized protocols for targeted exams where does is matched to indication/reason for exam; i.e. extremities or head); use of iterative trevor nstruction technique).
[2025-06-23 16:08] VITALS: BP 152/75; PULSE 90; RESP 21; TEMP 37.1; O2SAT 95
[2025-06-23 17:03] VITALS: BP 147/66; PULSE 89; RESP 20; O2SAT 96
--- OUTSIDE RECORDS SUMMARY | 2025-06-23 17:20 | XMS_ITS | Encounter Summary ---
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 Gender Identity Not on file Sexual Orientation Not on file documented as of this encounter Functional Status * Calculated C-SSRS Risk Score (Lifetime/Recent) Answer Date of Assessment Author Status No Risk Indicated 01/18/2025 7:15 AM Veto Avila RN Active * Walker Suicide Severity Rating Scale (Screener/Recent Self-Report) Question [...] BASIC METABOLIC PANEL (01/12/2025 2:49 PM CDT) [facility] GLUCOSE 178(H) 70 - 99 MG/DL 01/12/2025 3:54 PM CDT [facility] BUN 12 7 - 18 MG/DL 01/12/2025 3:54 PM CDT [facility] CREATININE S/P/B 0.72 0.7 - 1.3 MG/DL 01/12/2025 3:54 PM CDT [facility] SODIUM S/P/B 140 136 - 145 MMOL/L 01/12/2025 3:54 PM CDT [facility] POTASSIUM S/P/B 3.6 3.5 - 5.1 MMOL/L 01/12/2025 3:54 PM CDT [facility] CHLORIDE S/P/B 106 97 - 115 MMOL/L 01/12/2025 3:54 PM CDT [facility] CO2 26.4 21 - 32 MMOL/L 01/12/2025 3:54 PM CDT [facility] CALCIUM S/P/B 9.6 8.5 - 10.1 MG/DL 01/12/2025 3:54 PM CDT [facility] ANION GAP 7.6 2 - 10 MMOL/L 01/12/2025 3:54 PM CDT [facility] BUN CREATININE RATIO 16.7 6 - 26 01/12/2025 3:54 PM CDT [facility] GFR ESTIMATE >90 >90 ML/MIN/1.7 3 M2 01/12/2025 3:54 PM CDT [facility] Comment: NOTE: eGFR is [...] Erwin Loyola MD LABORATORY Final Res ult [facility] [address] [place] [address], [place] [phone] * (ABNORMAL) URINALYSIS (01/12/2025 2:47 PM CDT) SPECIMEN TYPE URINE CLEAN CATCH 01/12/2025 2:47 PM CDT [facility] COLOR (U) LIGHT YELLOW 01/12/2025 4:48 PM CDT [facility] TRANSPARENCY CLEAR 01/12/2025 4:48 PM CDT [facility] SPECIFIC GRAVITY (U) 1.042(H) 1.001 - 1.030 01/12/2025 4:48 PM CDT [facility] U PH 6.0 5.0 - 9.0 01/12/2025 4:48 PM CDT [facility] LEUKOCYTES (U) NEGATIVE NEGATIVE 01/12/2025 4:48 PM CDT [facility] NITRITES NEGATIVE NEGATIVE 01/12/2025 4:48 PM CDT [facility] PROTEIN RANDOM (U) NEGATIVE <30 MG/DL 01/12/2025 4:48 PM CDT [facility] GLUCOSE (U) >1000(A) NORMAL MG/DL 01/12/2025 4:48 PM CDT [facility] KETONES MG/DL (U) NEGATIVE NEGATIVE MG/DL 01/12/2025 4:48 PM CDT [facility] UROBILINOGEN NORMAL NORMAL MG/DL 01/12/2025 4:48 PM CDT [facility] BILIRUBIN (U) NEGATIVE NEGATIVE MG/DL 01/12/2025 4:48 PM CDT [facility] BLOOD (U) NEGATIVE NEGATIVE 01/12/2025 4:48 PM CDT [facility] URINE SPECIMEN OBTAINED BY CLEAN CATCH PROCEDURE / Unknown 01/12/2025 2:47 PM CDT us Erwin Loyola MD URINE ORDERABLES Final Re sult Performing Organization Address [facility]/ZIP Co de Phone Number [facility] [address] [place] [address], [place] [phone] * URINE BACTERIA CULTURE (01/12/2025 2:47 PM CDT) SPEC DESCRIPTION URINE CLEAN CATCH 01/12/2025 2:47 PM CDT [facility] SPECIAL REQUESTS NO SPECIAL REQUEST 01/12/2025 2:47 PM CDT [facility] CULTURE RESULT NO GROWTH 2 DAYS 01/14/2025 9:11 AM CDT [facility] URINE SPECIMEN OBTAINED BY CLEAN CATCH PROCEDURE / Unknown 01/12/2025 2:47 PM CDT 01/12/2025 2:49 PM CDT us Erwin Loyola MD MICROBIOLOGY - GENERAL OR DERABLES Final Result [facility] [address] [place] [place] [address], [place] [phone] * PTT, PARTIAL THROMBOPLASTIN TIME (01/12/2025 2:41 PM CDT) PTT 36.2 25.1 - 36.5 SEC 01/12/2025 4:01 PM CDT [facility] 01/12/2025 2:41 PM CDT Erwin Loyola MD LABORATORY Final Res ult [facility] [address] [place] [address], [place] [phone] * (ABNORMAL) PROTIME/INR, VENOUS (01/12/2025 2:41 PM CDT) Pathologist [facility] PROTIME 13.3(H) 10.2 - 12.9 SEC 01/12/2025 4:01 PM CDT [facility] INR 1.2 01/12/2025 4:01 PM CDT [facility] Comment: Recommended INR Therapeutic Goals: 2.0-3.0 Routine Therapy 2.5-3.5 Mechanical Prosthetic Valves (High Risk) 01/12/2025 2:41 PM CDT Erwin Loyola MD LABORATORY Final Res ult [facility] [address] [place] [address], [place] [phone] * (ABNORMAL) CBC W/DIFF AUTOMATED (01/12/2025 2:41 PM CDT) WBC 4.90 4.5 - 11.0 x10'3/uL 01/12/2025 3:40 PM CDT [facility] RBC 4.97 4.70 - 6.10 x10'6/uL 01/12/2025 3:40 PM CDT [facility] HGB 15.5 14.0 - 18.0 G/DL 01/12/2025 3:40 PM CDT [facility] HCT 46.3 43.0 - 54.0 % 01/12/2025 3:40 PM CDT [facility] MCV 93.2 80.0 - 94.0 FL 01/12/2025 3:40 PM CDT [facility] MCH 31.2(H) 27.0 - 31.0 PG 01/12/2025 3:40 PM CDT [facility] MCHC 33.5 32.0 - 36.0 G/DL 01/12/2025 3:40 PM CDT [facility] RDW 15.0(H) 11.5 - 14.5 % 01/12/2025 3:40 PM CDT [facility] PLT 103(L) 130 - 400 x10'3/uL 01/12/2025 3:40 PM CDT [facility] MPV 11.5 9.3 - 12.2 FL 01/12/2025 3:40 PM CDT [facility] DIFFERENTIAL TYPE AUTOMATED DIFFERENTIAL 01/12/2025 3:40 PM CDT [facility] NEUTROPHILS % 49.4 % 01/12/2025 3:40 PM CDT [facility] LYMPHOCYTES % 33.7 % 01/12/2025 3:40 PM CDT [facility] MONOCYTES % 9.8 % 01/12/2025 3:40 PM CDT [facility] EOSINOPHILS 6.3 % 01/12/2025 3:40 PM CDT [facility] BASOPHILS 0.4 % 01/12/2025 3:40 PM CDT [facility] IMMATURE GRANS % 0.4 % 01/13/20 3:40 PM CDT [facility] ABS. NEUTROPHILS 2.42 1.80 - 7.70 x10'3/uL 01/12/2025 3:40 PM CDT [facility] ABS. LYMPHOCYTES 1.65 1.00 - 4.80 x10'3/uL 01/12/2025 3:40 PM CDT [facility] ABS. MONOCYTES 0.48 0.30 - 0.82 x10'3/uL 01/12/2025 3:40 PM CDT [facility] ABS. EOSINOPHILS 0.31 0.04 - 0.54 x10'3/uL 01/12/2025 3:40 PM CDT [facility] ABS. BASOPHILS 0.02 0.01 - 0.08 x10'3/uL 01/12/2025 3:40 PM CDT [facility] ABS. IMMATURE GRANULOCYTES 0.02 0.00 - 0.49 x10'3/uL 01/12/2025 3:40 PM CDT [facility] 01/12/2025 2:41 PM CDT Erwin Loyola MD LABORATORY Final Res ult [facility] [address] [place] [address], [place] [phone] documented in this encounter Visit Diagnoses Diagnosis Gross hematuria- Primary Frequency of micturition Urinary frequency Lesion of bladder Unspecified disorder of bladder documented in this encounter Care Teams Voyage Management System Operator Relationship Specialty Start Date End Date Migdalia Pfeiffer MD [address] [place] [address] PCP - General INTERNAL MEDICINE 01/12/25 documented as of this encounter
--- OUTSIDE RECORDS SUMMARY | 2025-06-23 17:20 | XMS_ITS | Encounter Summary ---
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
--- OUTSIDE RECORDS SUMMARY | 2025-06-23 17:20 | XMS_ITS | Encounter Summary ---
Author Organization [facility] Address [address] 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 Gender Identity Not on file Sexual Orientation Not on file 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 Job End Date 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 Not on file Not on file 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 on file 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 file Not on file Not [...] st Contact Info) Description 09/07/2025 10:00 AM SUPERVISOR DENTAL LABORATORY Office Visit [facility] [address] [facility] [address] [place] [phone] [place] [address] [id number] documented as of this encounter Visit Diagnoses Not on filedocumented in this encounter Care Teams Handmade Tile Artist Relationship Specialty Start Date End Date John Samuels MD [facility] [address] [place] [phone] PCP - General Internal Medicine 05/11/15 06/29/20 Rianna Ambriz DO PCP - General Student Resident 06/30/20 06/30/20 John Samuels MD [facility] [address] [place] [phone] PCP - General 07/01/20 02/21/21 Rianna Ambriz DO PCP - General Student Resident 02/22/21 03/13/21 Koko Sol DO [address] [place] [address] PCP - General Internal Medicine 02/11/24 Arina Dobbins, RN Potable Water Treatment Operator 05/11/15 documented as of this encounter
--- OUTSIDE RECORDS SUMMARY | 2025-06-23 17:20 | XMS_ITS | Clinical Summary ---
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
--- OUTSIDE RECORDS SUMMARY | 2025-06-23 17:20 | XMS_ITS | Encounter Summary ---
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
--- OUTSIDE RECORDS SUMMARY | 2025-06-23 17:20 | XMS_ITS | Encounter Summary ---
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 Answer Date of Assessment Author No 11/16/2015 2:15 PM CDT Becky Marino RN * Is person blind or have serious difficulty seeing? Answer Date of Assessment Author No 11/16/2015 2:15 PM CDT Bceky Marino RN * Does person have serious [...] st Contact Info) Description 09/07/2025 10:00 AM HEEL LINING PASTER Office Visit Counts include 234 beds at the [facility] [address] [facility] [address] [place] [phone] [place] [address] [phone] documented as of this encounter Visit Diagnoses Not on filedocumented in this encounter Care Teams Restaurant Crew Relationship Specialty Start Date End Date John Samuels MD [facility] [address] [place] [phone] PCP - General Internal Medicine 05/11/15 06/29/20 Rianna Ambriz DO PCP - General Student Resident 06/30/20 06/30/20 John Samuels MD [facility] [address] [place] [phone] PCP - General 07/01/20 02/21/21 Rianna Ambriz DO PCP - General Student Resident 02/22/21 03/13/21 Koko Sol DO [address] [place] [address] PCP - General Internal Medicine 02/11/24 Arina Dobbins, RN Care Services Manager 05/11/15 documented as of this encounter
--- OUTSIDE RECORDS SUMMARY | 2025-06-23 17:20 | XMS_ITS | Encounter Summary ---
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
--- OUTSIDE RECORDS SUMMARY | 2025-06-23 17:20 | XMS_ITS | Clinical Summary ---
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
--- OUTSIDE RECORDS SUMMARY | 2025-06-23 17:20 | XMS_ITS | Clinical Summary ---
Author Organization [facility] Address [address] [facility] [place] [address] Care Team Providers Care Loan Clerk Name Role Phone Arina Dobbins RN Unavailable [phone] Koko Sol DO Primary Care Provider [phone] Source Comments [facility],non-owned Affiliates and Associated Physician Practices is amultiple site organization consisting of ambulatory clinics and hospital sitesin [place], [place], [place] and [place]. This disclosure is being madepursuant to the Care Everywhere program and may not contain all information available regarding this patient. 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 Not on file Not on file Last Filed Vital Signs Vital Sign Reading Time Taken Comments Blood Pressure 130/60 02/17/2025 11:10 AM CDT Pulse 85 02/17/2025 11:10 AM CDT Temperature 36.4 C (97.5 F) 04/13/2024 2:42 PM CDT Respiratory Rate 18 08/19/2024 10:03 AM MAINTENANCE PIPEFITTER Oxygen Saturation 97% 02/17/2025 11:10 AM CDT Inhaled Oxygen Concentration 40% 07/26/2015 4 :25 AM MAINTENANCE PIPEFITTER Weight 96.2 kg (212 lb) 02/17/2025 11:10 AM CDT Height 182.9 cm (6') 02/17/2025 11:10 AM CDT Body Mass Index 28.75 02/17/2025 11:10 AM CDT Plan of Treatment Upcoming Encounters Date Type Department Care Team (Late st Contact Info) Description 09/07/2025 10:00 AM MAINTENANCE PIPEFITTER Office Visit [facility] [address] [facility] [address] [place] [phone] [place] [address] [facility] [address] [place] [address] Health Maintenance Due Date Last Done Comments COLOGUARD (AGES 45-75) - COLON CA SCREENING 1955 CT COLONOGRAPHY - COLON CA SCREENING 1955 FIT - COLON CA SCREENING 1955 FLEX SIG - COLON CA SCREENING 1955 MEDICARE AWV 12 MONTHS 1955 PNEUMOCOCCAL VACCINE 50+ (1 of 2 - PCV) 01/08/1972 Respiratory Syncytial Virus (RSV) Vaccine Pt: or over 60 yrs (1 - Risk 50-74 years 1-dose series) 2003 ZOSTER VACCINE (1 of 2) 2003 AAA SCREENING 2018 DIABETES RETINOPATHY SCREENING 12/23/2018 10/17/2014, 09/21/2012, 07/12/2011, Additional history exists DIABETES-FOOT EXAM WITH MONOFILAMENT 12/23/2018 DIABETES-HGB A1C 12/23/2018 05/11/2015, 05/07/2012 DTAP/TDAP/TD VACCINES (2 - Td or Tdap) 06/15/2020 06/15/2010 DIABETES-SERUM CREATININE 08/15/20232022, 03/13/2021, 03/13/2021, Additional history exists DEPRESSION SCREENING 08/11/2024 04/02/2024 DIABETES - URINE PROTEIN SCREENING 08/11/2024 COVID-19 VACCINE ( season) 2025 10/26/2020, 10/05/2020 INFLUENZA VACCINE (#1) 2025 , 05/25/2019, 06/02/2018, Additional history exists COLON MONITORING 08/28/2027 08/28/2022, [...] ENDOSCOPY, COLON, DIAGNOSTIC Routine 08/28/2022 7:25 AM MAINTENANCE PIPEFITTER Rectal bleeding COMPREHENSIVE METABOLIC PANEL Routine 08/15/2022 12:20 PM MAINTENANCE PIPEFITTER Other cirrhosis of liver HEPATITIS C RNA QUANTITATIVE AM Draw 07/24/2015 2:43 AM MAINTENANCE PIPEFITTER HEMOGLOBIN A1C Routine 05/11/2015 6:59 AM CDT from Last 3 Months or Most Recently Relevant to Health Maintenance Results * ENDOSCOPY, COLON, DIAGNOSTIC (08/28/2022 7:25 AM MAINTENANCE PIPEFITTER) Report Endoscopy POC _ Patient Name: Rekha Sigala Procedure Date: 08/28/2022 7:25 AM Date of : 1955 Admit Type: Outpatient Age: 67 Gender: Male Ethnicity: Not or Race: White Attending MD: Declan Hurst MD _ Procedure: Colonoscopy Indications: Hematochezia Providers: Declan Hurst MD (Doctor), Chanel Ornelas RN, Phyllis Salazar, Nurse Educator Patient Profile: 67M presents for eval of rectal bleeding. last exam 4 yrs prior Referring MD: [address] [place] [address], Clinic (Referring MD) Medicines: Monitored Anesthesia Care [...] for surveillance. Procedure Code(s): --- Professional --- 65666, Colonoscopy, flexible; diagnostic, including collection of specimen(s) by brushing or washing, when performed (separate procedure) --- Technical --- 59043, Colonoscopy, flexible; diagnostic, including collection of specimen(s) by brushing or washing, when performed (separate procedure) Diagnosis Code(s): --- Professional --- K64.8, Other hemorrhoids K92.1, Melena (includes Hematochezia) --- Technical --- K64.8, Other hemorrhoids K92.1, Melena (includes Hematochezia) CPT copyright 2019 [employer]. All rights reserved. The codes documented in this report are preliminary and upon painter set review may be revised to meet current compliance requirements. Declan Hurst MD 08/28/2022 9:07:58 AM This report has been signed electronically. Number of Addenda: 0 Note Initiated On: 08/28/2022 7:25 AM [facility] ENDOSCOPY 08/28/2022 7:25 AM MAINTENANCE PIPEFITTER Narrative Procedure Note Declan Hurst MD - 08/28/2022 9:08 AM CST Colonoscopy Small int hemorrhoids Nl otherwise Psyllium Rpt 5 yrs us Declan Hurst MD GI PROCEDURE ORDERABLES Edited R esult - Final [facility] ENDOSCOPY * (ABNORMAL) COMPREHENSIVE METABOLIC PANEL (08/15/2022 12:20 PM MAINTENANCE PIPEFITTER) Glucose 110(H) 65 - 99 mg/dL [facility] [...] 46 U/L [facility] Comment: Test Performed at: [facility] [address] [place] [address] DEWAYNE SEBASTIAN DO,MPH Blood BLOOD SPECIMEN / Unknown 08/15/2022 12:20 PM MAINTENANCE PIPEFITTER 08/15/2022 12:21 PM MAINTENANCE PIPEFITTER Karla Josie RING CONDUCTOR-PUBLIC HEALTH SOCIAL WORKER LAB - CHEMISTRY ORDER RAYMOND Final Result [facility] [address] [place] [address] * HEPATITIS C RNA QUANTITATIVE PCR (07/24/2015 2:43 AM MAINTENANCE PIPEFITTER) Hepatitis C Virus RNA Quantitative <15 IU/mL 07/26/2015 8:40 AM [facility] [employer] ([facility]) Hepatitis C Virus RNA Log Quantitative <1.2 log IU 07/26/2015 8:40 AM [facility] [employer] ([facility]) Comment: INTERPRETIVE INFORMATION: Hepatitis C Virus by [...] Not Detected Not Detected 07/26/2015 8:40 AM [facility] [employer] ([facility]) EER HCV See Note 07/26/2015 8:40 AM [facility] [employer] ([facility]) Comment: To download an enhanced report for this test go to: [email or web address] [email or web address] [email or web address] Blood specimen (specimen) BLOOD SPECIMEN / Unknown Lab Venipuncture / Unknown 07/24/2015 2:43 AM MAINTENANCE PIPEFITTER 07/24/2015 3:25 AM MAINTENANCE PIPEFITTER Scotty Castillo RING CONDUCTOR-PUBLIC HEALTH SOCIAL WORKER LAB - CHEMISTRY ORDERABLE S Final Result [facility] ([facility]) [address] [place], [place] [id number] [place] [address] * HEMOGLOBIN A1C (05/11/2015 6:59 AM CDT) Pathologist [facility] Hemoglobin A1c 6.1 4.2 - 6.3 % 05/11/2015 8:36 AM CDT [facility] Estimated Average Glucose 128 mg/dL 05/11/2015 8:36 AM CDT [facility] Whole Blood BLOOD SPECIMEN WITH EDTA / Unknown Lab Venipuncture / Unknown 05/11/2015 6:59 AM CDT 05/11/2015 7:10 AM CDT us Tamiko Mcclain RING CONDUCTOR-PUBLIC HEALTH SOCIAL WORKER LAB - CHEMISTRY ORDERABL ES Final Result Performing Organization Address [facility] Co de Phone Number 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
[2025-06-23 17:46] VITALS: BP 139/67; PULSE 95; RESP 17; O2SAT 95
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
[2025-06-23] MEDS: SODIUM CHLORIDE 0.9% IV 1,000 ML 999 ML IV CONT (18:29)
[2025-06-23] MEDS: HYDROmorphone HCL INJ (*CRX) 1 MG/ML SYR 0.5 MG IV PUSH ×2 (18:29→21:45)
[2025-06-23 18:31] VITALS: BP 132/63; PULSE 92; RESP 20; O2SAT 94
[2025-06-23 18:35] LABS: Hematocrit 38.9 % (42.0-52.0); Hemoglobin 13.3 g/dL (14.0-18.0); Immature Granulocyte Percent A 0.7 % (0-0.5); Immature Platelet Fraction Pct 1.8 % (0.9-11.2); Lymphocytes Absolute Auto 0.74 K/mm3 (0.9-3.2); Mean Corpuscular HGB Conc 34.2 g/dl (32-36); Mean Corpuscular Hemoglobin 32.9 pg (26-34); Mean Corpuscular Volume 96.3 fl (80-100); Nucleated Red Blood Cells Absolute Auto 0.000 K/mm3 (0.0-0.012); Nucleated Red Blood Cells Perc 0.0 % (0.0-0.2); Platelet Count Result 83 k/mm3 (150-375); Red Blood Count 4.04 M/mm3 (4.6-6.20); White Blood Count 4.1 K/mm3 (4.5-10.0)
[2025-06-23 18:48] LABS: INR 1.3; Partial Thromboplastin Time 34.3 Seconds (22.3-36.8); Prothrombin Time 16.3 Seconds (11.1-14.7)
[2025-06-23 18:49] LABS: Alanine Aminotransferase 11 U/L (6-50); Albumin Level 3.4 g/dL (3.5-5.1); Alkaline Phosphatase 168 U/L (38-126); Anion Gap 4 mmol/L (4-12); Aspartate Amino Transferase 71 U/L (17-59); Bilirubin,Total 1.4 mg/dL (0.2-1.3); Blood Urea Nitrogen 9 mg/dL (9-20); Calcium 8.4 mg/dL (8.4-10.2); Carbon Dioxide 26 mmol/L (22-30); Chloride 106 mmol/L (98-107); Estimated CRCL calculation 149 ml/min; Estimated Glomerular Filt Rate > 60; Glucose 114 mg/dL (65-110); Lipase 597 U/L (23-300); Potassium 3.9 mmol/L (3.4-5.0); Sodium 136 mmol/L (137-145); Total Protein 6.7 g/dL (6.3-8.2)
[2025-06-23 18:54] LABS: Schistocytes None Seen
[2025-06-23 19:18] VITALS: BP 133/64; PULSE 92; RESP 14; O2SAT 91
[2025-06-23] MEDS: LIDOCAINE 5% PATCH 2 PATCH TRANSDERM (21:45)
[2025-06-23 22:28] VITALS: BP 123/72; PULSE 72; RESP 14; O2SAT 94
== END 2025-06-23 22:28 | disposition home or self-care (01) ==
PROVIDERS: Emergency Provider Registered Nurse
DX: S06.0X0A Concussion without loss of consciousness, initial encounter (principal); S16.1XXA Strain of muscle, fascia and tendon at neck level, initial encounter; S39.012A Strain of muscle, fascia and tendon of lower back, initial encounter; D69.6 Thrombocytopenia, unspecified; K74.60 Unspecified cirrhosis of liver; G20.A1 Parkinson's disease without dyskinesia, without mention of fluctuations; E11.319 Type 2 diabetes mellitus with unspecified diabetic retinopathy without macular edema; E11.42 Type 2 diabetes mellitus with diabetic polyneuropathy; E78.00 Pure hypercholesterolemia, unspecified; J45.909 Unspecified asthma, uncomplicated; N40.0 Benign prostatic hyperplasia without lower urinary tract symptoms; K50.90 Crohn's disease, unspecified, without complications; F32.A Depression, unspecified; Z87.891 Personal history of nicotine dependence; Z90.49 Acquired absence of other specified parts of digestive tract; Z79.84 Long term (current) use of oral hypoglycemic drugs; Z79.899 Other long term (current) drug therapy; W01.0XXA Fall on same level from slipping, tripping and stumbling without subsequent striking against object, initial encounter
CPT/HCPCS: 36415; 70450; 71260; 72125; 72129; 72132; 74177; 80053; 83690; 85025; 85055; 85610; 85730; 96361; 96374; 96376; 99284; A9270; J1171; J7030; Q9967